=== PATIENT | male | born 1965 | race Caucasian/White ===

== ENCOUNTER 2018-09-26 23:31 | Inpatient (IN) | payer OTHER ==
[~2018-09-26] VITALS: Ht 188 cm; Wt 75.0 kg
[~2018-09-26 23:31] MED LIST: ACET160O41 GTB; DOCU50LI23 GTB; FAMO20TA18 GTB; FOLI-49 GTB; LOSA50TA14 GTB; MAGN2400 GTB; METO-429 GTB; MULT-762 GTB; MULT9LIQ2 PO; QUET50TA5 PO; SENN-120 GTB
--- NOTE | 2018-09-26 23:35 | ERD ---
ER Documentation Chief Complaint Chief Complaint Fever HPI The patient is a 53-year-old male, presenting to the ER because of fever. He is unable to provide any history, the history is obtained from SNF medical record, and the EMS. Past medical history: History of fracture of left tibia and fibula, dyslipidemia, BPH, schizophrenia, encephalopathy, GERD Past surgical history: G-tube, Rojas ROS All systems reviewed and are negative except as per history of present illness. Allergies Allergies: Coded Allergies: No Known Allergy (Unverified , 09/26/18) Physical Exam Vitals Vital Signs Date Temp Pulse Resp B/P (MAP) Pulse Ox O2 O2 Flow FiO2 Time Delivery Rate 09/27/18 98.6 78 18 93/61 (72) 100 Room Air 01:00 09/27/18 100.5 00:11 09/26/18 Nasal 2 23:50 Cannula 09/26/18 100.5 89 20 91/59 (70) 88 23:46 Physical Exam Const: No acute distress. Head: Atraumatic. Eyes: Normal Conjunctiva. ENT: Normal External Ears, Nose and Mouth. Neck: Full range of motion. No meningismus. Resp: Clear to auscultation bilaterally. Cardio: Regular rate and rhythm. Abd: Soft, non distended, normal bowel sounds, non tender.GT Skin: No petechiae or rashes. Back: No midline or flank tenderness. Ext: No cyanosis, or edema. Neur: Awake. Limited due to his condition Psych: Unable to perform due to his condition Result Diagram: 09/26/18 2350 09/26/18 2350 Results 24 hrs Laboratory Tests Test 09/26/18 00:00 09/26/18 23:46 09/26/18 23:50 09/27/18 00:11 Urine Color RED Urine Clarity TURBID Urine pH 6.0 Urine Specific 1.006 Early Urine Ketones NEGATIVE mg/dL Urine Nitrite NEGATIVE mg/dL Urine Bilirubin NEGATIVE mg/dL Urine NEGATIVE mg/dL Urobilinogen Urine Leukocyte 3+ Ankit/ul Esterase Urine Microscopic > 182 /HPF RBC Urine Microscopic > 182 /HPF WBC Urine Squamous FEW /HPF Epithelial Cells Urine Bacteria MODERATE /HPF Urine Mucus FEW /HPF Urine Hemoglobin 3+ mg/dL Urine Glucose NEGATIVE mg/dL Urine Total 2+ mg/dl Protein POC Venous 0.9 mmol/L Lactate White Blood Count 16.2 10^3/ul Red Blood Count 3.22 10^6/ul Hemoglobin 9.9 g/dl Hematocrit 29.9 % Mean Corpuscular 92.9 fl Volume Mean Corpuscular 30.7 pg Hemoglobin Mean Corpuscular 33.1 g/dl Hemoglobin Concen t Red Cell 15.6 % Distribution Width Platelet Count 207 10^3/UL Mean Platelet 10.3 fl Volume Immature 0.500 % Granulocytes % Neutrophils % % Segmented 59 % Neutrophils % (Manual) Band Neutrophils 24 % % (Manual) Lymphocytes % % Lymphocytes % 4 % (Manual) Reactive 1 % Lymphocytes % (Manual) Monocytes % % Monocytes % 12 % (Manual) Eosinophils % % Basophils % % Nucleated Red 0.0 /100WBC Blood Cells % Immature 0.080 10^3/ul Granulocytes # Neutrophils # 10^3/ul Neutrophils # 10.2 10^3/ul (Manual) Band Neutrophils 3.8 10^3/ul # Lymphocytes 0.6 10^3/ul (Manual) Lymphocytes # 10^3/ul Reactive 0.1 10^3/ul Lymphocytes # Monocytes # 10^3/ul Monocytes # 1.9 10^3/ul (Manual) Eosinophils # 10^3/ul Basophils # 10^3/ul Nucleated Red 10^3/ul Blood Cells # Platelet Estimate NORMAL Polychromasia 1+ Poikilocytosis 2+ Anisocytosis 1+ Macrocytosis 1+ Prothrombin Time 14.4 Sec Prothrombin Time 1.1 Ratio INR International 1.11 Normalized Ratio Activated 36.6 Sec Partial Thrombopl ast Time Sodium Level 126 mmol/L Potassium Level 5.0 mmol/L Chloride Level 90 mmol/L Carbon Dioxide 27 mmol/L Level Anion Gap 9 Blood Urea 38 mg/dl Nitrogen Creatinine 1.58 mg/dl Est Glomerular 46 mL/min Filtrat Rate mL/min Glucose Level 100 mg/dl Calcium Level 8.6 mg/dl Total Bilirubin 0.8 mg/dl Direct Bilirubin 0.00 mg/dl Indirect 0.8 mg/dl Bilirubin Aspartate Amino 24 IU/L Transf (AST/SGOT) Alanine 26 IU/L Aminotransferase (ALT/SGPT) Alkaline 108 IU/L Phosphatase Troponin I 0.017 ng/ml Total Protein 6.4 g/dl Albumin 3.1 g/dl Globulin 3.30 g/dl Albumin/Globulin 0.93 Ratio Bedside Urine pH 6.5 (LAB) Bedside Urine 3+ Protein (LAB) Bedside Urine Negative Glucose (UA) Bedside Urine Negative Ketones (LAB) Bedside Urine 3+ Blood Bedside Urine Positive Nitrite (LAB) Bedside Urine 3+ Leukocyte Esteras e (L Current Medications Medications Dose Sig/Tylor Start Time Status Last (Trade) Ordered Route PRN Stop Time Admin Dose Reason Admin Sodium 2,250 ml @ BOLUS X1 09/27/18 DC 09/27/18 Chloride 2,250 mls/hr ONCE IV 00:00 00:11 09/27/18 00:59 Piperacillin 100 ml @ ONCE ONCE 09/27/18 DC 09/27/18 Sod/ 200 mls/hr IVPB 00:00 00:11 Tazobactam 09/27/18 00:29 Sod 650 mg ONCE ONCE 09/27/18 DC 09/27/18 Acetaminophen PO 00:00 00:11 (Tylenol 09/27/18 00:01 Tab) Vancomycin 250 ml @ ONCE ONCE 09/27/18 09/27/18 HCl 125 mls/hr IVPB 00:30 01:00 09/27/18 02:29 Procedures/[place] [address] Radiology Main Line: [phone] DIAGNOSTIC IMAGING REPORT Patient: LORENA SIEGEL : 1965 Age: 53 Sex: M MR #: [id number] DOS: 09/26/18 2341 Ordering MD: MORTEZA IRENE MD Location: E/R Room/Bed: PROCEDURE: XR Chest. CLINICAL INDICATION: Sepsis. TECHNIQUE: Single frontal view. COMPARISON: None. FINDINGS: The lungs are clear. The heart size is normal. There is no pleural effusion. There is no pneumothorax. IMPRESSION: 1. Normal chest radiograph. RPTAT: QQ .Florencio Anders MD, Date Time Electronically viewed and signed by .Florencio Anders MD, on 09/27/2018 00:31 .R/ CC: MORTEZA IRENE MD [phone] EKG: Read by emergency physician Rate/Rhythm: Normal Sinus Rhythm 90 beats/min QRS, ST, T-waves: No ST elevation, no T inversion Impression: Normal EKG MEDICAL MAKING DECISION: The patient is a 53-year-old male, presenting with acute cystitis, acute dehydration, acute kidney injury, acute hypo-natremia. He was treated with normal saline 30 mm/kg IV for acute dehydration, Zosyn IV and vancomycin IV for acute cystitis. The Rojas catheter was replaced and a clean urine specimen was submitted The differential diagnoses considered include but are not limited to cholelithi asis, cholecystitis, choledocholithiasis, cholangitis, pancreatitis, hepatitis, gastritis, peptic ulcer disease, gastric ulcer, appendicitis, cystitis, diverticulitis, partial small bowel obstruction. Departure Diagnosis: Primary Impression: UTI (urinary tract infection) Additional Impressions: Hyponatremia Dehydration MANAS (acute kidney injury) Anemia Condition: Stable Comments I discussed the findings with the patient. I notified the patient with Dr. Estrada at 12:50 AM via [employer] , who was made aware of the lab, the treatment, the patient condition. The patient is admitted to Tel Disclaimer: Inadvertent spelling and grammatical errors are likely due to EHR/dictation software use and do not reflect on the overall quality of patient care. Also, please note that the electronic time recorded on this note does not necessarily reflect the actual time of the patient encounter. MORTEZA IRENE MD Sep 26, 2018 23:35
[2018-09-27] MEDS ORDERED: PIPER-TAZO 3.375 GM IV (PMX) 100 ML IVPB ONE
[2018-09-27] MEDS ORDERED: ACETAMINOPHEN 325 MG TAB PO ONE
[2018-09-27] MEDS ORDERED: SOD CHLORIDE 0.9% 2,250 ML IV ONE
[2018-09-27] MEDS ORDERED: VANCOMYCIN 1 GM (PMX) 250 ML IVPB ONE (00:30)
[2018-09-27 02:07] VITALS: Ht 188 cm; Wt 75.0 kg
[2018-09-27 02:15] VITALS: BP 110/60; PULSE 82; RESP 18
[2018-09-27] MEDS ORDERED: ACETAMINOPHEN 325 MG TAB PO PRN (03:00)
[2018-09-27] MEDS ORDERED: ONDANSETRON 4 MG INJ IV PRN (03:00)
[2018-09-27] MEDS: SOD CHLORIDE 0.9% 1,000 ML IV SCH ×2 (03:42→17:23)
[2018-09-27 04:00] VITALS: BP_SYST 103; BP_DIAS 62; BP_DIAS 92; PULSE 90; RESP 18
[2018-09-27 07:22] VITALS: BP 100/58; PULSE 94; RESP 20
[2018-09-27] MEDS: ENOXAPARIN 30 MG/0.3 ML SYG SC SCH (08:46)
[2018-09-27] MEDS ORDERED: CEFEPIME 1GM/50 ML (PMX) 50 ML IVPB SCH (09:00)
[2018-09-27] MEDS ORDERED: ACETAMINOPHEN 160 MG/5ML CUP GTB PRN (10:30)
--- NOTE | 2018-09-27 10:30 | HP ---
Date/Time of Note Date/Time of Note DATE: 09/27/18 TIME: 10:16 Assessment/Plan VTE Prophylaxis SCD contraindicated: other Pharmacological prophylaxis: other Pharm contraindication: other Lines/Catheters IV Catheter Type (from Nrsg): Peripheral IV Urinary Cath still in place: Yes Reason Cath still needed: urinary retention Assessment/Plan Assessment/Plan - Acute febrile illness 2/2 uti, bacteremia -- bacteremia and UTI due to Gram negative rods. - admit to tele - ID consult notified - Urinary Tract Infection- d/t Enterobacter cloacae. Curry catheter was changed at [facility] - Leukocytosis - Hyponatremia - Acute kidney injury due to ATN from UTI and Prerenal azotemia - IVF - nephro consult-Dr Rosa Zapata notified - Anemia- stable - H/o Chronic encephalopathy - H/o Schizophrenia - h/o GT placement but Pt takes pureed diet - aspiration precautions - h/o dysphagia, improved - h/o fracture of L hip h/o ORIF - h/o surgeries of LLE and L shoulder - H/o BPH with Urinary obstruction ,chronic indwelling curry catheter - Lovenox for DVT prophylaxis Patient seen in collaboration with Dr Shafer Result Diagram: 09/27/18 0544 09/27/18 0544 Results 24hrs Laboratory Tests Test 09/26/18 23:46 09/26/18 23:50 09/27/18 00:11 09/27/18 02:08 POC Venous Lactate 0.9 White Blood Count 16.2 H Red Blood Count 3.22 L Hemoglobin 9.9 L Hematocrit 29.9 L Mean Corpuscular 92.9 Volume Mean Corpuscular 30.7 Hemoglobin Mean Corpuscular 33.1 Hemoglobin Concent Red Cell 15.6 H Distribution Width Platelet Count 207 Mean Platelet Volume 10.3 Immature 0.500 H Granulocytes % Neutrophils % Segmented 59 Neutrophils % (Manual) Band Neutrophils % 24 H (Manual) Lymphocytes % Lymphocytes % 4 L (Manual) Reactive Lymphocytes 1 H % (Manual) Monocytes % Monocytes % (Manual) 12 H Eosinophils % Basophils % Nucleated Red Blood 0.0 Cells % Immature 0.080 H Granulocytes # Neutrophils # Neutrophils # 10.2 H (Manual) Band Neutrophils # 3.8 H Lymphocytes (Manual) 0.6 L Lymphocytes # Reactive Lymphocytes 0.1 H # Monocytes # Monocytes # (Manual) 1.9 H Eosinophils # Basophils # Nucleated Red Blood Cells # Platelet Estimate NORMAL Polychromasia 1+ Poikilocytosis 2+ Anisocytosis 1+ Macrocytosis 1+ Prothrombin Time 14.4 Prothrombin Time 1.1 Ratio INR International 1.11 Normalized Ratio Activated 36.6 H Partial Thromboplast Time Sodium Level 126 L Potassium Level 5.0 Chloride Level 90 L Carbon Dioxide Level 27 Anion Gap 9 Blood Urea Nitrogen 38 H Creatinine 1.58 H Est Glomerular 46 L Filtrat Rate mL/min Glucose Level 100 Calcium Level 8.6 Total Bilirubin 0.8 Direct Bilirubin 0.00 Indirect Bilirubin 0.8 Aspartate Amino 24 Transf (AST/SGOT) Alanine 26 Aminotransferase (AL T/SGPT) Alkaline Phosphatase 108 Troponin I 0.017 Total Protein 6.4 Albumin 3.1 L Globulin 3.30 H Albumin/Globulin 0.93 Ratio Bedside Urine pH 6.5 (LAB) Bedside Urine 3+ H Protein (LAB) Bedside Urine Negative Glucose (UA) Bedside Urine Negative Ketones (LAB) Bedside Urine Blood 3+ H Bedside Urine Positive H Nitrite (LAB) Bedside Urine 3+ H Leukocyte Esterase (L Lactic Acid Level 0.8 Test 09/27/18 02:55 09/27/18 05:44 Urine Osmolality 117 L Urine Random Sodium < 13 L White Blood Count 16.0 H Red Blood Count 2.93 L Hemoglobin 9.0 L Hematocrit 27.2 L Mean Corpuscular 92.8 Volume Mean Corpuscular 30.7 Hemoglobin Mean Corpuscular 33.1 Hemoglobin Concent Red Cell 15.8 H Distribution Width Platelet Count 187 Mean Platelet Volume 10.4 Immature 0.600 H Granulocytes % Neutrophils % Segmented 56 Neutrophils % (Manual) Band Neutrophils % 38 H (Manual) Lymphocytes % 2.2 L Lymphocytes % 2 L (Manual) Monocytes % 3.6 Monocytes % (Manual) 4 Eosinophils % Basophils % 0.1 Nucleated Red Blood 0.0 Cells % Immature 0.100 H Granulocytes # Neutrophils # Neutrophils # 9.9 H (Manual) Band Neutrophils # 6.0 H Lymphocytes (Manual) 0.3 L Lymphocytes # 0.4 L Monocytes # 0.6 Monocytes # (Manual) 0.6 Eosinophils # Basophils # 0.0 Nucleated Red Blood 0.0 Cells # Platelet Estimate NORMAL Giant Platelets 3 H Hypochromasia 1+ Poikilocytosis 2+ Sodium Level 130 L Potassium Level 4.6 Chloride Level 98 Carbon Dioxide Level 25 Anion Gap 7 Blood Urea Nitrogen 37 H Creatinine 1.54 H Est Glomerular 47 L Filtrat Rate mL/min Glucose Level 89 Osmolality 273 L Lactic Acid Level 1.1 Calcium Level 8.2 L HPI/ROS Admit Date/Time Admit Date/Time Sep 27, 2018 at 01:07 Hx of Present Illness HPI The patient is a 53-year-old male; a SNF resident is admitted 2/2 fever. He is unable to provide any history, the history is obtained from SNF medical record. Patient seems comfortable in bed. Patient is alert, awake.responsive. No reported shortness of breath, chest pain, palpitations, headache, abdominal pain/Nausea/vomitting. Patient is admitted under Dr Shafer for further treatment/evaluation Past medical historyPast medical history: History of fracture of left tibia and fibula, dyslipidemia, BPH schizophrenia, encephalopathy, GERD Past surgical history: G-tube, Curry. ORIF Left hip Family/social history- No pertinent family history; SNF resident ROS All systems reviewed and are negative except as per history of present illness. Allergies Allergies: Coded Allergies: No Known Allergy (Unverified , 09/26/18) ROS Eyes: no complaints ENT: no complaints Respiratory: no complaints Cardiovascular: no complaints PMH/Family/Social Past Medical History Medications Current Medications Sodium Chloride 1,000 ml @ 70 mls/hr [id number] IV Last administered on 09/27/18at 03:42; Admin Dose 70 MLS/HR; Start 09/27/18 at 03:00 Cefepime HCl 50 ml @ 100 mls/hr Q12 IVPB Last administered on 09/27/18at 08:44; Admin Dose 100 MLS/HR; Start 09/27/18 at 09:00 Acetaminophen (Tylenol Tab) 650 mg Q4H PRN PO MILD PAIN(1-3)OR ELEVATED TEMP; Start 09/27/18 at 03:00 Enoxaparin Sodium (Lovenox) 30 mg DAILY SC Last administered on 09/27/18at 08:46; Admin Dose 30 MG; Start 09/27/18 at 09:00 Ondansetron HCl (Zofran Inj) 4 mg Q6H PRN IV NAUSEA AND/OR VOMITING; Start 09/27/18 at 03:00 Coded Allergies: No Known Allergy (Unverified , 7/18/19) Family History Significant Family History: no pertinent family hx Social History Smoking Status: Unknown if ever smoked Exam/Review of Systems Vital Signs Vitals Vital Signs Date Temp Pulse Resp B/P (MAP) Pulse Ox O2 O2 Flow FiO2 Time Delivery Rate 09/27/18 99.1 94 20 100/58 97 07:22 (72) 09/27/18 Nasal 3.0 02:30 Cannula Intake and Output 09/26/18 09/26/18 09/27/18 1515:00 23:00 07:00 OutputOutput Total 900 ml BalanceBalance -900 ml Exam Constitutional: alert, well developed Psych: nl mood/affect Head: normocephalic Eyes: nl lids, nl sclera ENMT: nl external ears & nose Neck: non-tender Cardiovascular: nl pulses, other (S1S2) Gastrointestinal: soft, non-tender, other (GT INTACT) Musculoskeletal: muscle weakness Extremities: normal pulses Neurological: confused Lymph: nontender CORBIN GAYTAN Sep 27, 2018 10:26
[2018-09-27 11:18] VITALS: BP 114/67; PULSE 101; RESP 20
[2018-09-27] MEDS ORDERED: LOSARTAN 50 MG TAB GTB SCH (12:00)
[2018-09-27] MEDS: QUETIAPINE 25 MG TAB GTB SCH ×2 (12:41→20:07)
[2018-09-27] MEDS: METOPROLOL 50 MG TAB GTB SCH ×2 (12:42→20:07)
[2018-09-27 15:17] VITALS: BP 106/63; PULSE 90; RESP 20
--- NOTE | 2018-09-27 16:47 | CONS ---
Assessment/Plan Assessment/Plan Assessment/Plan (Daily) 1. acute kidney injury due to ATN from UTI and Prerenal azotemia 2. SIRS due to UTI and bacteremia 3. Bacteremia with Blood Cx growing Gram negative rods 4. H/o BPH with Urinary obstruction ,c hronic indwelling curry catheter 5. H/o Chronic encephalopathy 6. H/o SChizophrenia 7. H/o G tube placement 8. H/o Fracture of left hip s/p ORIF Plan: Seen in tele floor pt has MANAS due to ATN and prerenal azotemia Cr remains elevated 1.54- Stop Losartan due to MANAS Continue MTP for BP control, will use IV hydralazine for BP control Gold bx cefepie for gram negative bacteremia,Renally dose all abx and monitor electrolytes Thanks for consultation I will continue to follow up Consultation Date/Type/Reason Admit Date/Time Sep 27, 2018 at 01:07 Date of Consultation: Sep 27, 2018 Type of Consult NEPHROLOGY Reason for Consultation Hyponatremia, acute kidney injury Requesting Provider: JOHNIE BRADFORD MD Date/Time of Note DATE: 09/27/18 TIME: 16:46 Hx of Present Illness 53 yo male with h/o chronic encephalopathy, schizophrenia, BPH wiht Urinary obstruction requiring chronic urinary catheter. Pt is verbal but cannot have a normal conversation. Pt was transferred from SNF due to fever on 09/26/18. He has BPH with Urinary obstruction and has a chronic indwelling curry catheter. He has a G tube but eats pureed food by mouth. he gets admitted for SIRS on admission,and found to have Bacteremia and UTI, his Blood Cx grew gram negative rods. Na 126, BUN/Cr 38/1.58 on admission, Renal has been consulted for acute kidney injury, Hyponatremia. Subjective hx not possible: pt non-verbal Past Medical History Medical History: other (chronic encephalopathy, schizophrenia, BPH wiht Urinary obstruction requiring chronic urinary catheter) Home Meds Reported Medications Quetiapine Fumarate* (Seroquel* XR) 50 Mg Tab.sr.24h, 50 ML PO DAILY, #30 TAB 09/27/18 Sennosides* (Senna Lax*) 8.6 Mg Tablet, 1 TAB GTB QHS, TAB 09/27/18 Multivitamin/Minerals* (Multivitamin w/Min* Liq) 9 Mg/15 Ml Liquid, 10 ML PO DAILY, ML 09/27/18 Multivitamin (MULTI-VITAMIN DAILY) 1 Each Tablet, 1 TAB GTB DAILY, TAB 09/27/18 Magnesium Hydroxide (Milk of Magnesia) 2,400 Mg/10 Ml Oral.susp, 15 ML GTB Q72H PRN for CONSTIPATION 09/27/18 Metoprolol Tartrate* (Lopressor*) 50 Mg Tab, 50 MG GTB BID for HTN, #60 TAB 09/27/18 Losartan Potassium* (Losartan Potassium*) 50 Mg Tablet, 50 MG GTB DAILY for HTN, TAB 09/27/18 Folic Acid* (Folic Acid*) 1 Mg Tablet, 1 MG GTB DAILY for ANEMIA, TAB 09/27/18 Famotidine* (Famotidine*) 20 Mg Tablet, 20 MG GTB BID for GERD, #60 TAB 09/27/18 Docusate Sodium* (Docusate Sodium* Liq) 50 Mg/5 Ml Liquid, 50 MG GTB DAILY, ML 09/27/18 Acetaminophen* (Acetaminophen* Susp) 160 Mg/5 Ml Oral.susp, 160 MG GTB Q4H PRN for PAIN OR TEMP ABOVE 38C, ML 09/27/18 Medications Current Medications Sodium Chloride 1,000 ml @ 70 mls/hr [id number] IV Last administered on 09/27/18at 03:42; Admin Dose 70 MLS/HR; Start 09/27/18 at 03:00 Cefepime HCl 50 ml @ 100 mls/hr Q12 IVPB Last administered on 09/27/18at 08:44; Admin Dose 100 MLS/HR; Start 09/27/18 at 09:00 Enoxaparin Sodium (Lovenox) 30 mg DAILY SC Last administered on 09/27/18at 08:46; Admin Dose 30 MG; Start 09/27/18 at 09:00 Ondansetron HCl (Zofran Inj) 4 mg Q6H PRN IV NAUSEA AND/OR VOMITING; Start 09/27/18 at 03:00 Acetaminophen (Tylenol Liquid (Ped)) 160 mg Q4H PRN GTB MILD PAIN(1-3) OR TEMP>38C; Start 09/27/18 at 10:30 Docusate Sodium (Colace Liquid Cup) 50 mg DAILY GTB ; Start 09/28/18 at 09:00 Famotidine (Pepcid) 20 mg BID GTB ; Start 09/27/18 at 21:00 Folic Acid (Folic Acid) 1 mg DAILY GTB ; Start 09/28/18 at 09:00 Losartan Potassium (Cozaar) 50 mg DAILY GTB Last administered on 09/27/18at 12:42; Admin Dose 50 MG; Start 09/27/18 at 12:00 Metoprolol Tartrate (Lopressor) 50 mg BID GTB Last administered on 09/27/18at 12:42; Admin Dose 50 MG; Start 09/27/18 at 12:00 Senna (Senokot) 1 tab QHS GTB ; Start 09/27/18 at 21:00 Multivitamins/ Minerals (Theragran-M) 1 tab DAILY GTB ; Start 09/28/18 at 09:00 Quetiapine Fumarate (Seroquel) 25 mg BID GTB Last administered on 09/27/18at 12:41; Admin Dose 25 MG; Start 09/27/18 at 12:00 Allergies: Coded Allergies: No Known Allergy (Unverified , 09/26/18) Past Surgical History Past Surgical Hx: other (G tube in place ) Family History Significant Family History: no pertinent family hx Social History Alcohol Use: none Smoking Status: Unknown if ever smoked Drug Use: none Exam/Review of Systems Exam Vitals Vital Signs Date Temp Pulse Resp B/P (MAP) Pulse Ox O2 O2 Flow FiO2 Time Delivery Rate 09/27/18 99.7 90 20 106/63 99 Room Air 15:17 (77) 09/27/18 2.0 14:50 Intake and Output 09/26/18 09/26/18 09/27/18 1515:00 23:00 07:00 OutputOutput Total 900 ml BalanceBalance -900 ml Exam Constitutional: confused talking non sense) Psych: confusion Head: normocephalic, atraumatic Respiratory: clear to auscultation, normal air movement Cardiovascular: regular rate and rhythm, nl pulses; Gastrointestinal: soft, non-tender, other (GT); No distended, No tender Genitourinary - Male: other (FC) Musculoskeletal: other (L hip and LLE have well healed surgical scars) Extremities: No edema Neurological: confused,non focal Results Result Diagram: 09/27/1844 09/27/18 0544 Results 24hrs Laboratory Tests Test 09/26/18 23:46 09/26/18 23:50 09/27/18 00:11 09/27/18 02:08 POC Venous Lactate 0.9 White Blood Count 16.2 H Red Blood Count 3.22 L Hemoglobin 9.9 L Hematocrit 29.9 L Mean Corpuscular 92.9 Volume Mean Corpuscular 30.7 Hemoglobin Mean Corpuscular 33.1 Hemoglobin Concent Red Cell 15.6 H Distribution Width Platelet Count 207 Mean Platelet Volume 10.3 Immature 0.500 H Granulocytes % Neutrophils % Segmented 59 Neutrophils % (Manual) Band Neutrophils % 24 H (Manual) Lymphocytes % Lymphocytes % 4 L (Manual) Reactive Lymphocytes 1 H % (Manual) Monocytes % Monocytes % (Manual) 12 H Eosinophils % Basophils % Nucleated Red Blood 0.0 Cells % Immature 0.080 H Granulocytes # Neutrophils # Neutrophils # 10.2 H (Manual) Band Neutrophils # 3.8 H Lymphocytes (Manual) 0.6 L Lymphocytes # Reactive Lymphocytes 0.1 H # Monocytes # Monocytes # (Manual) 1.9 H Eosinophils # Basophils # Nucleated Red Blood Cells # Platelet Estimate NORMAL Polychromasia 1+ Poikilocytosis 2+ Anisocytosis 1+ Macrocytosis 1+ Prothrombin Time 14.4 Prothrombin Time 1.1 Ratio INR International 1.11 Normalized Ratio Activated 36.6 H Partial Thromboplast Time Sodium Level 126 L Potassium Level 5.0 Chloride Level 90 L Carbon Dioxide Level 27 Anion Gap 9 Blood Urea Nitrogen 38 H Creatinine 1.58 H Est Glomerular 46 L Filtrat Rate mL/min Glucose Level 100 Calcium Level 8.6 Total Bilirubin 0.8 Direct Bilirubin 0.00 Indirect Bilirubin 0.8 Aspartate Amino 24 Transf (AST/SGOT) Alanine 26 Aminotransferase (AL T/SGPT) Alkaline Phosphatase 108 Troponin I 0.017 Total Protein 6.4 Albumin 3.1 L Globulin 3.30 H Albumin/Globulin 0.93 Ratio Bedside Urine pH 6.5 (LAB) Bedside Urine 3+ H Protein (LAB) Bedside Urine Negative Glucose (UA) Bedside Urine Negative Ketones (LAB) Bedside Urine Blood 3+ H Bedside Urine Positive H Nitrite (LAB) Bedside Urine 3+ H Leukocyte Esterase (L Lactic Acid Level 0.8 Test 09/27/18 02:55 09/27/18 05:44 Urine Osmolality 117 L Urine Random Sodium < 13 L White Blood Count 16.0 H Red Blood Count 2.93 L Hemoglobin 9.0 L Hematocrit 27.2 L Mean Corpuscular 92.8 Volume Mean Corpuscular 30.7 Hemoglobin Mean Corpuscular 33.1 Hemoglobin Concent Red Cell 15.8 H Distribution Width Platelet Count 187 Mean Platelet Volume 10.4 Immature 0.600 H Granulocytes % Neutrophils % Segmented 56 Neutrophils % (Manual) Band Neutrophils % 38 H (Manual) Lymphocytes % 2.2 L Lymphocytes % 2 L (Manual) Monocytes % 3.6 Monocytes % (Manual) 4 Eosinophils % Basophils % 0.1 Nucleated Red Blood 0.0 Cells % Immature 0.100 H Granulocytes # Neutrophils # Neutrophils # 9.9 H (Manual) Band Neutrophils # 6.0 H Lymphocytes (Manual) 0.3 L Lymphocytes # 0.4 L Monocytes # 0.6 Monocytes # (Manual) 0.6 Eosinophils # Basophils # 0.0 Nucleated Red Blood 0.0 Cells # Platelet Estimate NORMAL Giant Platelets 3 H Hypochromasia 1+ Poikilocytosis 2+ Sodium Level 130 L Potassium Level 4.6 Chloride Level 98 Carbon Dioxide Level 25 Anion Gap 7 Blood Urea Nitrogen 37 H Creatinine 1.54 H Est Glomerular 47 L Filtrat Rate mL/min Glucose Level 89 Osmolality 273 L Lactic Acid Level 1.1 Calcium Level 8.2 L Medications Medication Current Medications Sodium Chloride 1,000 ml @ 70 mls/hr [id number] IV Last administered on 09/27/18at 03:42; Admin Dose 70 MLS/HR; Start 09/27/18 at 03:00 Cefepime HCl 50 ml @ 100 mls/hr Q12 IVPB Last administered on 09/27/18at 08:44; Admin Dose 100 MLS/HR; Start 09/27/18 at 09:00 Enoxaparin Sodium (Lovenox) 30 mg DAILY SC Last administered on 09/27/18at 08:4 6; Admin Dose 30 MG; Start 09/27/18 at 09:00 Ondansetron HCl (Zofran Inj) 4 mg Q6H PRN IV NAUSEA AND/OR VOMITING; Start 09/27/18 at 03:00 Acetaminophen (Tylenol Liquid (Ped)) 160 mg Q4H PRN GTB MILD PAIN(1-3) OR TEMP>38C; Start 09/27/18 at 10:30 Docusate Sodium (Colace Liquid Cup) 50 mg DAILY GTB ; Start 09/28/18 at 09:00 Famotidine (Pepcid) 20 mg BID GTB ; Start 09/27/18 at 21:00 Folic Acid (Folic Acid) 1 mg DAILY GTB ; Start 09/28/18 at 09:00 Losartan Potassium (Cozaar) 50 mg DAILY GTB Last administered on 09/27/18at 12:42; Admin Dose 50 MG; Start 09/27/18 at 12:00 Metoprolol Tartrate (Lopressor) 50 mg BID GTB Last administered on 09/27/18at 12:42; Admin Dose 50 MG; Start 09/27/18 at 12:00 Senna (Senokot) 1 tab QHS GTB ; Start 09/27/18 at 21:00 Multivitamins/ Minerals (Theragran-M) 1 tab DAILY GTB ; Start 09/28/18 at 09:00 Quetiapine Fumarate (Seroquel) 25 mg BID GTB Last administered on 09/27/18at 12:41; Admin Dose 25 MG; Start 09/27/18 at 12:00 MARCOS MOODY MD Sep 27, 2018 16:47
--- NOTE | 2018-09-27 18:22 | CONS ---
Assessment/Plan Assessment/Plan Hospital Course (Demo Recall) assessment/impression - fever due to bacteremia and UTI - bacteremia and UTI due to Gram negative rods. Curry catheter was changed at [facility] - BPH, has an indwelling curry at [facility] - chronic encephalopathy, talks non-sense only - h/o dysphagia, improved - h/o GT placement but Pt takes pureed diet - h/o fracture of L hip h/o ORIF - h/o surgeries of LLE and L shoulder recommendations - await the species and sensitivity of Gram negative rods in the blood and urine cultures - repeat blood cultures x2 now - increase the dose of cefepime to the bacteremia-dose (09/26/2018-) - nystatin to the tinea of the groin bid ordered - management d/w Pt's KAROL Desai Consultation Date/Type/Reason Admit Date/Time Sep 27, 2018 at 01:07 Date of Consultation: Sep 27, 2018 Type of Consult ID Reason for Consultation bacteremia and UTI Requesting Provider: CORBIN GAYTAN Date/Time of Note DATE: 09/27/18 TIME: 18:16 Hx of Present Illness This is a 53 yo male with h/o chronic encephalopathy, schizophrenia, with chronic urinary catheter. Pt is verbal but cannot have a normal conversation. Pt was transferred from [facility] due to fever on 09/26/18. He has BPH and a chronic indwelling curry catheter. He has a G tube but eats pureed food by mouth. Upon arrival at ER, he had temp 100.5F, and WBC level 16.2. Pt was given pip/tazo and vancomycin initially, and is at present taking cefepime. Today Pt's blood cultures and urine culture started to grow Gram negative devika. [employer] Leonel requested ID consultation on this Pt Subjective hx not possible: other (verbal but cannot talk normally) Past Medical History Medical History: other (chronic encephalopathy, Fx of L hip) Home Meds Reported Medications Quetiapine Fumarate* (Seroquel* XR) 50 Mg Tab.sr.24h, 50 ML PO DAILY, #30 TAB 09/27/18 Sennosides* (Senna Lax*) 8.6 Mg Tablet, 1 TAB GTB QHS, TAB 09/27/18 Multivitamin/Minerals* (Multivitamin w/Min* Liq) 9 Mg/15 Ml Liquid, 10 ML PO DAILY, ML 09/27/18 Multivitamin (MULTI-VITAMIN DAILY) 1 Each Tablet, 1 TAB GTB DAILY, TAB 09/27/18 Magnesium Hydroxide (Milk of Magnesia) 2,400 Mg/10 Ml Oral.susp, 15 ML GTB Q72H PRN for CONSTIPATION 09/27/18 Metoprolol Tartrate* (Lopressor*) 50 Mg Tab, 50 MG GTB BID for HTN, #60 TAB 09/27/18 Losartan Potassium* (Losartan Potassium*) 50 Mg Tablet, 50 MG GTB DAILY for HTN, TAB 09/27/18 Folic Acid* (Folic Acid*) 1 Mg Tablet, 1 MG GTB DAILY for ANEMIA, TAB 09/27/18 Famotidine* (Famotidine*) 20 Mg Tablet, 20 MG GTB BID for GERD, #60 TAB 09/27/18 Docusate Sodium* (Docusate Sodium* Liq) 50 Mg/5 Ml Liquid, 50 MG GTB DAILY, ML 09/27/18 Acetaminophen* (Acetaminophen* Susp) 160 Mg/5 Ml Oral.susp, 160 MG GTB Q4H PRN for PAIN OR TEMP ABOVE 38C, ML 09/27/18 Medications Current Medications Sodium Chloride 1,000 ml @ 70 mls/hr [id number] IV Last administered on 09/27/18at 17:23; Admin Dose 70 MLS/HR; Start 09/27/18 at 03:00 Enoxaparin Sodium (Lovenox) 30 mg DAILY SC Last administered on 09/27/18at 08:46; Admin Dose 30 MG; Start 09/27/18 at 09:00 Ondansetron HCl (Zofran Inj) 4 mg Q6H PRN IV NAUSEA AND/OR VOMITING; Start 09/27/18 at 03:00 Acetaminophen (Tylenol Liquid (Ped)) 160 mg Q4H PRN GTB MILD PAIN(1-3) OR TEMP>38C; Start 09/27/18 at 10:30 Docusate Sodium (Colace Liquid Cup) 50 mg DAILY GTB ; Start 09/28/18 at 09:00 Famotidine (Pepcid) 20 mg BID GTB ; Start 09/27/18 at 21:00 Folic Acid (Folic Acid) 1 mg DAILY GTB ; Start 09/28/18 at 09:00 Losartan Potassium (Cozaar) 50 mg DAILY GTB Last administered on 09/27/18at 12:42; Admin Dose 50 MG; Start 09/27/18 at 12:00 Metoprolol Tartrate (Lopressor) 50 mg BID GTB Last administered on 09/27/18at 12:42; Admin Dose 50 MG; Start 09/27/18 at 12:00 Senna (Senokot) 1 tab QHS GTB ; Start 09/27/18 at 21:00 Multivitamins/ Minerals (Theragran-M) 1 tab DAILY GTB ; Start 09/28/18 at 09:00 Quetiapine Fumarate (Seroquel) 25 mg BID GTB Last administered on 09/27/18at 12:41; Admin Dose 25 MG; Start 09/27/18 at 12:00 Cefepime HCl 50 ml @ 100 mls/hr Q12 IVPB ; Start 09/27/18 at 21:00; Status UNV Allergies: Coded Allergies: No Known Allergy (Unverified , 09/26/18) Past Surgical History Past Surgical Hx: other (ORIF L hip, additional surgeries to LLE, L shoulder) Social History Smoking Status: Unknown if ever smoked Exam/Review of Systems Exam Vitals Vital Signs Date Temp Pulse Resp B/P (MAP) Pulse Ox O2 O2 Flow FiO2 Time Delivery Rate 09/27/18 99.7 90 20 106/63 99 Room Air 15:17 (77) 09/27/18 2.0 14:50 Intake and Output 09/26/18 09/26/18 09/27/18 1414:59 22:59 06:59 OutputOutput Total 900 ml BalanceBalance -900 ml Constitutional: other (talking non sense) Psych: confusion Head: normocephalic, atraumatic Eyes: nl conjunctiva, nl lids, nl sclera ENMT: nl external ears & nose, nl nasal mucosa & septum, mucosa pink and moist Neck: non-tender Respiratory: clear to auscultation, normal air movement Cardiovascular: regular rate and rhythm, nl pulses; No edema Gastrointestinal: soft, non-tender, other (GT); No distended, No tender Genitourinary - Male: other (FC) Musculoskeletal: other (L hip and LLE have well healed surgical scars) Extremities: No edema Neurological: confused Skin: rash or lesions (tinea of the groin) Results Result Diagram: 09/27/18 0544 09/27/18 0544 Results 24hrs Laboratory Tests Test 09/26/18 23:46 09/26/18 23:50 09/27/18 00:11 09/27/18 02:08 POC Venous Lactate 0.9 White Blood Count 16.2 H Red Blood Count 3.22 L Hemoglobin 9.9 L Hematocrit 29.9 L Mean Corpuscular 92.9 Volume Mean Corpuscular 30.7 Hemoglobin Mean Corpuscular 33.1 Hemoglobin Concent Red Cell 15.6 H Distribution Width Platelet Count 207 Mean Platelet Volume 10.3 Immature 0.500 H Granulocytes % Neutrophils % Segmented 59 Neutrophils % (Manual) Band Neutrophils % 24 H (Manual) Lymphocytes % Lymphocytes % 4 L (Manual) Reactive Lymphocytes 1 H % (Manual) Monocytes % Monocytes % (Manual) 12 H Eosinophils % Basophils % Nucleated Red Blood 0.0 Cells % Immature 0.080 H Granulocytes # Neutrophils # Neutrophils # 10.2 H (Manual) Band Neutrophils # 3.8 H Lymphocytes (Manual) 0.6 L Lymphocytes # Reactive Lymphocytes 0.1 H # Monocytes # Monocytes # (Manual) 1.9 H Eosinophils # Basophils # Nucleated Red Blood Cells # Platelet Estimate NORMAL Polychromasia 1+ Poikilocytosis 2+ Anisocytosis 1+ Macrocytosis 1+ Prothrombin Time 14.4 Prothrombin Time 1.1 Ratio INR International 1.11 Normalized Ratio Activated 36.6 H Partial Thromboplast Time Sodium Level 126 L Potassium Level 5.0 Chloride Level 90 L Carbon Dioxide Level 27 Anion Gap 9 Blood Urea Nitrogen 38 H Creatinine 1.58 H Est Glomerular 46 L Filtrat Rate mL/min Glucose Level 100 Calcium Level 8.6 Total Bilirubin 0.8 Direct Bilirubin 0.00 Indirect Bilirubin 0.8 Aspartate Amino 24 Transf (AST/SGOT) Alanine 26 Aminotransferase (AL T/SGPT) Alkaline Phosphatase 108 Troponin I 0.017 Total Protein 6.4 Albumin 3.1 L Globulin 3.30 H Albumin/Globulin 0.93 Ratio Bedside Urine pH 6.5 (LAB) Bedside Urine 3+ H Protein (LAB) Bedside Urine Negative Glucose (UA) Bedside Urine Negative Ketones (LAB) Bedside Urine Blood 3+ H Bedside Urine Positive H Nitrite (LAB) Bedside Urine 3+ H Leukocyte Esterase (L Lactic Acid Level 0.8 Test 09/27/18 02:55 09/27/18 05:44 Urine Osmolality 117 L Urine Random Sodium < 13 L White Blood Count 16.0 H Red Blood Count 2.93 L Hemoglobin 9.0 L Hematocrit 27.2 L Mean Corpuscular 92.8 Volume Mean Corpuscular 30.7 Hemoglobin Mean Corpuscular 33.1 Hemoglobin Concent Red Cell 15.8 H Distribution Width Platelet Count 187 Mean Platelet Volume 10.4 Immature 0.600 H Granulocytes % Neutrophils % Segmented 56 Neutrophils % (Manual) Band Neutrophils % 38 H (Manual) Lymphocytes % 2.2 L Lymphocytes % 2 L (Manual) Monocytes % 3.6 Monocytes % (Manual) 4 Eosinophils % Basophils % 0.1 Nucleated Red Blood 0.0 Cells % Immature 0.100 H Granulocytes # Neutrophils # Neutrophils # 9.9 H (Manual) Band Neutrophils # 6.0 H Lymphocytes (Manual) 0.3 L Lymphocytes # 0.4 L Monocytes # 0.6 Monocytes # (Manual) 0.6 Eosinophils # Basophils # 0.0 Nucleated Red Blood 0.0 Cells # Platelet Estimate NORMAL Giant Platelets 3 H Hypochromasia 1+ Poikilocytosis 2+ Sodium Level 130 L Potassium Level 4.6 Chloride Level 98 Carbon Dioxide Level 25 Anion Gap 7 Blood Urea Nitrogen 37 H Creatinine 1.54 H Est Glomerular 47 L Filtrat Rate mL/min Glucose Level 89 Osmolality 273 L Lactic Acid Level 1.1 Calcium Level 8.2 L Medications Medication Current Medications Sodium Chloride 1,000 ml @ 70 mls/hr [id number] IV Last administered on 09/27/18at 17:23; Admin Dose 70 MLS/HR; Start 09/27/18 at 03:00 Enoxaparin Sodium (Lovenox) 30 mg DAILY SC Last administered on 09/27/18at 08:46; Admin Dose 30 MG; Start 09/27/18 at 09:00 Ondansetron HCl (Zofran Inj) 4 mg Q6H PRN IV NAUSEA AND/OR VOMITING; Start 09/27/18 at 03:00 Acetaminophen (Tylenol Liquid (Ped)) 160 mg Q4H PRN GTB MILD PAIN(1-3) OR TEMP>38C; Start 09/27/18 at 10:30 Docusate Sodium (Colace Liquid Cup) 50 mg DAILY GTB ; Start 09/28/18 at 09:00 Famotidine (Pepcid) 20 mg BID GTB ; Start 09/27/18 at 21:00 Folic Acid (Folic Acid) 1 mg DAILY GTB ; Start 09/28/18 at 09:00 Losartan Potassium (Cozaar) 50 mg DAILY GTB Last administered on 09/27/18at 12:42; Admin Dose 50 MG; Start 09/27/18 at 12:00 Metoprolol Tartrate (Lopressor) 50 mg BID GTB Last administered on 09/27/18at 12:42; Admin Dose 50 MG; Start 09/27/18 at 12:00 Senna (Senokot) 1 tab QHS GTB ; Start 09/27/18 at 21:00 Multivitamins/ Minerals (Theragran-M) 1 tab DAILY GTB ; Start 09/28/18 at 09:00 Quetiapine Fumarate (Seroquel) 25 mg BID GTB Last administered on 09/27/18at 12:41; Admin Dose 25 MG; Start 09/27/18 at 12:00 Cefepime HCl 50 ml @ 100 mls/hr Q12 IVPB ; Start 09/27/18 at 21:00; Status DEWAYNE ORNELAS M.D. Sep 27, 2018 18:22
[2018-09-27 19:20] VITALS: BP 123/72; PULSE 99; RESP 20
[2018-09-27] MEDS: FAMOTIDINE 20 MG TAB GTB SCH (20:07)
[2018-09-27] MEDS: SENNA TAB GTB SCH (20:07)
[2018-09-27] MEDS: NYSTATIN 30 GM POWDER BTL TOP SCH (20:08)
[2018-09-27] MEDS: CEFEPIME 2GM/50 ML (PMX) 50 ML IVPB SCH (20:08)
[2018-09-28] VITALS (7 sets, daily range): BP systolic 114–169; BP diastolic 7–90; PULSE 68–103; RESP 18–20
[2018-09-28] MEDS ORDERED: ACETAMINOPHEN 325 MG TAB PO PRN (05:00)
[2018-09-28] MEDS: SOD CHLORIDE 0.9% 1,000 ML IV SCH (06:53)
[2018-09-28] MEDS: FAMOTIDINE 20 MG TAB GTB SCH ×2 (08:19→20:38)
[2018-09-28] MEDS: QUETIAPINE 25 MG TAB GTB SCH ×2 (08:19→20:38)
[2018-09-28] MEDS: CEFEPIME 2GM/50 ML (PMX) 50 ML IVPB SCH ×2 (08:20→20:38)
[2018-09-28] MEDS: ENOXAPARIN 30 MG/0.3 ML SYG SC SCH (08:25)
[2018-09-28] MEDS: NYSTATIN 30 GM POWDER BTL TOP SCH ×2 (08:26→20:39)
[2018-09-28] MEDS: DOCUSATE SODIUM 10 MG/ML (10ML CUP) GTB SCH (08:26)
[2018-09-28] MEDS: MULTIVITAMINS/MINERALS TAB GTB SCH (08:26)
[2018-09-28] MEDS: FOLIC ACID 1 MG TAB GTB SCH (08:27)
[2018-09-28] MEDS: METOPROLOL 50 MG TAB GTB SCH ×2 (08:28→20:38)
--- NOTE | 2018-09-28 08:45 | CONS ---
Assessment/Plan Assessment/Plan Assessment/Plan (Daily) 1. acute kidney injury due to ATN from UTI and Prerenal azotemia 2. SIRS due to UTI and bacteremia 3. Bacteremia with Blood Cx growing Gram negative rods 4. H/o BPH with Urinary obstruction ,c hronic indwelling curry catheter 5. H/o Chronic encephalopathy 6. H/o SChizophrenia 7. H/o G tube placement 8. H/o Fracture of left hip s/p ORIF Plan: BUN/Cr 38/1.93, other electrolytes stable , Losartan has been stopped due to MANAS. Continue MTP 50mg PO BID for BP control, will use IV hydralazine for BP control Gold bx cefepie for Enterobacter bacteremia ,Renally dose all abx and monitor electrolytes will follow up Consultation Date/Type/Reason Admit Date/Time Sep 27, 2018 at 01:07 Initial Consult Date 09/27/18 Type of Consult NEPHROLOGY Requesting Provider: CORBIN GAYTAN Date/Time of Note DATE: 09/28/18 TIME: 08:45 24 HR Interval Summary Free Text/Dictation BUn/Cr went upto 38/1.93, BP stable Exam/Review of Systems Exam Vitals Vital Signs Date Temp Pulse Resp B/P (MAP) Pulse Ox O2 O2 Flow FiO2 Time Delivery Rate 09/28/18 100.2 08:03 09/28/18 96 20 125/78 96 07:08 (94) 09/28/18 Room Air 04:20 09/28/18 2.0 01:41 Intake and Output 09/27/18 09/27/18 09/28/18 1515:00 23:00 07:00 IntakeIntake Total 650 ml 850 ml 1850 ml OutputOutput Total 1400 ml 1000 ml 2000 ml BalanceBalance -750 ml -150 ml -150 ml Exam Constitutional: awake Psych: confusion Head: normocephalic, atraumatic Respiratory: clear to auscultation, normal air movement Cardiovascular: regular rate and rhythm, nl pulses; Gastrointestinal: soft, non-tender, other (GT); No distended, No tender Genitourinary - Male: other (FC) Musculoskeletal: other (L hip and LLE have well healed surgical scars) Extremities: No edema Neurological: Non focal Results Result Diagram: 09/28/18 0551 09/28/18 0551 Results 24hrs Laboratory Tests Test 09/28/18 05:51 White Blood Count 11.6 #H Red Blood Count 2.94 L Hemoglobin 9.2 L Hematocrit 28.3 L Mean Corpuscular Volume 96.3 Mean Corpuscular Hemoglobin 31.3 Mean Corpuscular Hemoglobin Concent 32.5 Red Cell Distribution Width 16.0 H Platelet Count 185 Mean Platelet Volume 10.6 H Immature Granulocytes % 0.300 Neutrophils % Lymphocytes % Monocytes % Eosinophils % Basophils % Nucleated Red Blood Cells % 0.0 Immature Granulocytes # 0.040 H Neutrophils # Lymphocytes # Monocytes # Eosinophils # Basophils # Nucleated Red Blood Cells # Sodium Level 133 L Potassium Level 4.1 Chloride Level 101 Carbon Dioxide Level 25 Anion Gap 7 Blood Urea Nitrogen 38 H Creatinine 1.93 H Est Glomerular Filtrat Rate mL/min 37 L Glucose Level 82 Hemoglobin A1c 5.2 Calcium Level 8.5 HIV (1&2) Antibody NEGATIVE Medications Medication Current Medications Sodium Chloride 1,000 ml @ 70 mls/hr [id number] IV Last administered on 09/28/18at 06:53; Admin Dose 70 MLS/HR; Start 09/27/18 at 03:00 Enoxaparin Sodium (Lovenox) 30 mg DAILY SC Last administered on 09/28/18at 08:25; Admin Dose 30 MG; Start 09/27/18 at 09:00 Ondansetron HCl (Zofran Inj) 4 mg Q6H PRN IV NAUSEA AND/OR VOMITING; Start 09/27/18 at 03:00 Docusate Sodium (Colace Liquid Cup) 50 mg DAILY GTB Last administered on 09/28/18at 08:26; Admin Dose 50 MG; Start 09/28/18 at 09:00 Famotidine (Pepcid) 20 mg BID GTB Last administered on 09/28/18at 08:19; Admin Dose 20 MG; Start 09/27/18 at 21:00 Folic Acid (Folic Acid) 1 mg DAILY GTB Last administered on 09/28/18at 08:27; Admin Dose 1 MG; Start 09/28/18 at 09:00 Metoprolol Tartrate (Lopressor) 50 mg BID GTB Last administered on 09/28/18at 08:28; Admin Dose 50 MG; Start 09/27/18 at 12:00 Senna (Senokot) 1 tab QHS GTB Last administered on 09/27/18 20:07; Admin Dose 1 TAB; Start 09/27/18 at 21:00 Multivitamins/ Minerals (Theragran-M) 1 tab DAILY GTB Last administered on 09/28/18 08:26; Admin Dose 1 TAB; Start 09/28/18 at 09:00 Quetiapine Fumarate (Seroquel) 25 mg BID GTB Last administered on 09/28/18 08:19; Admin Dose 25 MG; Start 09/27/18 at 12:00 Cefepime HCl 50 ml @ 100 mls/hr Q12 IVPB Last administered on 09/28/18 08:20; Admin Dose 100 MLS/HR; Start 09/27/18 at 21:00 Nystatin (Nystatin Powder) 1 applic BID TOP Last administered on 09/28/18 08:26; Admin Dose 1 APPLIC; Start 09/27/18 at 21:00 Acetaminophen (Tylenol Tab) 650 mg Q4H PRN PO MILD PAIN(1-3)OR ELEVATED TEMP Last administered on 09/28/18 08:03; Admin Dose 650 MG; Start 09/28/18 at 05:00 MARCOS MOODY MD Sep 28, 2018 08:45
[2018-09-28] MEDS ORDERED: MULTIVITAMINS THERAPEUTIC TAB GTB SCH (09:00)
--- NOTE | 2018-09-28 11:20 | CONS ---
Assessment/Plan Assessment/Plan Hospital Course (Demo Recall) assessment/impression - severe sepsis due to bacteremia and UTI - fever curve and leukocytosis are improving slowly - bacteremia and UTI due to Gram negative rods. - UTI d/t Enterobacter cloacae. Rojas catheter was changed at [facility] - BPH, has an indwelling Rojas at [facility] - worsening - chronic encephalopathy, talks non-sense only - h/o dysphagia, improved - h/o GT placement but Pt takes pureed diet - h/o fracture of L hip h/o ORIF - h/o surgeries of LLE and L shoulder - intertrigo of groin area recommendations - await the species and sensitivity of Gram negative rods in the blood cultures - follow up repeat blood cultures from 09/27/2018 (in process) - continue bacteremia-dose of cefepime (09/26/2018-) - continue nystatin to the tinea of the groin BID Management d/w KAROL Desai and with Dr. Friedman Consultation Date/Type/Reason Admit Date/Time Sep 27, 2018 at 01:07 Initial Consult Date 09/27/18 Type of Consult Infectious Disease Requesting Provider: CORBIN GAYTAN Date/Time of Note DATE: 09/28/18 TIME: 11:14 24 HR Interval Summary Free Text/Dictation WBC is trending down. Fever curve is slowly improving; Tmax 100.2 F. Urine cx grew Enterobacter. Constitutional: disoriented Exam/Review of Systems Exam Vitals Vital Signs Date Temp Pulse Resp B/P (MAP) Pulse Ox O2 O2 Flow FiO2 Time Delivery Rate 09/28/18 98.3 09:03 09/28/18 Nasal 3.0 08:00 Cannula 09/28/18 96 20 125/78 96 07:08 (94) Intake and Output 09/27/18 09/27/18 09/28/18 1515:00 23:00 07:00 IntakeIntake Total 650 ml 850 ml 1850 ml OutputOutput Total 1400 ml 1000 ml 2000 ml BalanceBalance -750 ml -150 ml -150 ml Constitutional: alert, well developed, frail, other (talking gibberish, soft voice) Psych: confusion Head: normocephalic, atraumatic Eyes: nl conjunctiva, nl lids, nl sclera ENMT: nl external ears & nose, nl nasal mucosa & septum Neck: non-tender Respiratory: clear to auscultation, normal air movement, other (On O2 via NC) Cardiovascular: regular rate and rhythm, nl pulses Gastrointestinal: soft, non-tender, other (GT with TF in progress); No distended Genitourinary - Male: other (Rojas in place with hazy nancy urine) Musculoskeletal: other (L hip and LLE with well healed surgical scars) Extremities: No edema Neurological: confused, other (no commands; no tracking) Skin: nl turgor, rash or lesions (faint fungal rash in the groin noted) Results Result Diagram: 09/28/1855009/28/1851 Results 24hrs Laboratory Tests Test 09/28/18 05:51 White Blood Count 11.6 #H Red Blood Count 2.94 L Hemoglobin 9.2 L Hematocrit 28.3 L Mean Corpuscular Volume 96.3 Mean Corpuscular Hemoglobin 31.3 Mean Corpuscular Hemoglobin Concent 32.5 Red Cell Distribution Width 16.0 H Platelet Count 185 Mean Platelet Volume 10.6 H Immature Granulocytes % 0.300 Neutrophils % Segmented Neutrophils % (Manual) 66 Band Neutrophils % (Manual) 27 H Lymphocytes % Lymphocytes % (Manual) 3 L Monocytes % Monocytes % (Manual) 4 Eosinophils % Basophils % Nucleated Red Blood Cells % 0.0 Immature Granulocytes # 0.040 H Neutrophils # Neutrophils # (Manual) 8.0 H Band Neutrophils # 3.1 H Lymphocytes (Manual) 0.3 L Lymphocytes # Monocytes # Monocytes # (Manual) 0.4 Eosinophils # Basophils # Nucleated Red Blood Cells # Platelet Estimate NORMAL Giant Platelets 1 H Poikilocytosis 3+ Anisocytosis 1+ Sodium Level 133 L Potassium Level 4.1 Chloride Level 101 Carbon Dioxide Level 25 Anion Gap 7 Blood Urea Nitrogen 38 H Creatinine 1.93 H Est Glomerular Filtrat Rate mL/min 37 L Glucose Level 82 Hemoglobin A1c 5.2 Calcium Level 8.5 HIV (1&2) Antibody NEGATIVE Medications Medication Current Medications Enoxaparin Sodium (Lovenox) 30 mg DAILY SC Last administered on 09/28/18at 08:25; Admin Dose 30 MG; Start 09/27/18 at 09:00 Ondansetron HCl (Zofran Inj) 4 mg Q6H PRN IV NAUSEA AND/OR VOMITING; Start at 03:00 Docusate Sodium (Colace Liquid Cup) 50 mg DAILY GTB Last administered on 09/28/18 08:26; Admin Dose 50 MG; Start 09/28/18 at 09:00 Famotidine (Pepcid) 20 mg BID GTB Last administered on 09/28/18 08:19; Admin Dose 20 MG; Start 09/27/18 at 21:00 Folic Acid (Folic Acid) 1 mg DAILY GTB Last administered on 09/28/18 08:27; Admin Dose 1 MG; Start 09/28/18 at 09:00 Metoprolol Tartrate (Lopressor) 50 mg BID GTB Last administered on 09/28/18 08:28; Admin Dose 50 MG; Start 09/27/18 at 12:00 Senna (Senokot) 1 tab QHS GTB Last administered on 09/27/18 20:07; Admin Dose 1 TAB; Start 09/27/18 at 21:00 Multivitamins/ Minerals (Theragran-M) 1 tab DAILY GTB Last administered on 09/10 08:26; Admin Dose 1 TAB; Start 09/28/18 at 09:00 Quetiapine Fumarate (Seroquel) 25 mg BID GTB Last administered on 09/28/18 08:19; Admin Dose 25 MG; Start 09/27/18 at 12:00 Cefepime HCl 50 ml @ 100 mls/hr Q12 IVPB Last administered on 09/28/18 08:20; Admin Dose 100 MLS/HR; Start 09/27/18 at 21:00 Nystatin (Nystatin Powder) 1 applic BID TOP Last administered on 09/28/18 08:26; Admin Dose 1 APPLIC; Start 09/27/18 at 21:00 Acetaminophen (Tylenol Tab) 650 mg Q4H PRN PO MILD PAIN(1-3)OR ELEVATED TEMP Last administered on 09/28/18 08:03; Admin Dose 650 MG; Start 09/28/18 at 05:00 ZUHAIR PHIPPS NP Sep 28, 2018 11:20
--- NOTE | 2018-09-28 12:17 | PN ---
Date/Time of Note Date/Time of Note DATE: 09/28/18 TIME: 12:13 Assessment/Plan VTE Prophylaxis Risk score (from [facility])>0 risk: 5 SCD applied (from [facility]): No SCD contraindicated: other Pharmacological prophylaxis: other Pharm contraindication: other Lines/Catheters IV Catheter Type (from [facility]): Peripheral IV Urinary Cath still in place: Yes Reason Cath still needed: urinary retention Assessment/Plan Assessment/Plan - Acute febrile illness 2/2 uti, bacteremia -- bacteremia and UTI due to Gram negative rods. - per ID consult - Urinary Tract Infection- d/t Enterobacter cloacae. Curry catheter was changed at [facility] - Leukocytosis - Hyponatremia - Acute kidney injury due to ATN from UTI and Prerenal azotemia - IVF - per nephro consult-Dr Rosa Zapata - Anemia- stable - H/o Chronic encephalopathy - H/o Schizophrenia - h/o GT placement but Pt takes pureed diet - aspiration precautions - h/o dysphagia, improved - h/o fracture of L hip h/o ORIF - h/o surgeries of LLE and L shoulder - H/o BPH with Urinary obstruction ,chronic indwelling curry catheter - Lovenox for DVT prophylaxis Patient seen in collaboration with Dr Shafer Result Diagram: 09/28/18 0551 09/28/18 0551 Results 24hrs Laboratory Tests Test 09/28/18 05:51 White Blood Count 11.6 #H Red Blood Count 2.94 L Hemoglobin 9.2 L Hematocrit 28.3 L Mean Corpuscular Volume 96.3 Mean Corpuscular Hemoglobin 31.3 Mean Corpuscular Hemoglobin Concent 32.5 Red Cell Distribution Width 16.0 H Platelet Count 185 Mean Platelet Volume 10.6 H Immature Granulocytes % 0.300 Neutrophils % Segmented Neutrophils % (Manual) 66 Band Neutrophils % (Manual) 27 H Lymphocytes % Lymphocytes % (Manual) 3 L Monocytes % Monocytes % (Manual) 4 Eosinophils % Basophils % Nucleated Red Blood Cells % 0.0 Immature Granulocytes # 0.040 H Neutrophils # Neutrophils # (Manual) 8.0 H Band Neutrophils # 3.1 H Lymphocytes (Manual) 0.3 L Lymphocytes # Monocytes # Monocytes # (Manual) 0.4 Eosinophils # Basophils # Nucleated Red Blood Cells # Platelet Estimate NORMAL Giant Platelets 1 H Poikilocytosis 3+ Anisocytosis 1+ Sodium Level 133 L Potassium Level 4.1 Chloride Level 101 Carbon Dioxide Level 25 Anion Gap 7 Blood Urea Nitrogen 38 H Creatinine 1.93 H Est Glomerular Filtrat Rate mL/min 37 L Glucose Level 82 Hemoglobin A1c 5.2 Calcium Level 8.5 HIV (1&2) Antibody NEGATIVE Subjective 24 Hr Interval Summary Free Text/Dictation resting WBC elevated; afebrile Cr1.93 no new events overnight Eyes: no complaints ENT: no complaints Respiratory: no complaints Cardiovascular: no complaints Gastrointestinal: no complaints Genitourinary: no complaints Musculoskeletal: no complaints Psychological: nl mood/affect Exam/Review of Systems Exam Vitals Vital Signs Date Temp Pulse Resp B/P (MAP) Pulse Ox O2 O2 Flow FiO2 Time Delivery Rate 09/28/18 97.9 68 20 114/77 99 Nasal 11:14 (89) Cannula 09/28/18 3.0 08:00 Intake and Output 09/27/18 09/27/18 09/28/18 1515:00 23:00 07:00 IntakeIntake Total 650 ml 850 ml 1850 ml OutputOutput Total 1400 ml 1000 ml 2000 ml BalanceBalance -750 ml -150 ml -150 ml Constitutional: alert, well developed Psych: nl mood/affect Head: normocephalic Eyes: nl lids, nl sclera ENMT: nl external ears & nose Neck: non-tender Respiratory: clear to auscultation Cardiovascular: nl pulses, other (S1S2) Gastrointestinal: soft, non-tender Musculoskeletal: nl extremities to inspection Extremities: normal pulses Neurological: other (Alert) Skin: other (no skin rash ) Lymph: nontender Results Results 24hrs Laboratory Tests Test 09/28/18 05:51 White Blood Count 11.6 #H Red Blood Count 2.94 L Hemoglobin 9.2 L Hematocrit 28.3 L Mean Corpuscular Volume 96.3 Mean Corpuscular Hemoglobin 31.3 Mean Corpuscular Hemoglobin Concent 32.5 Red Cell Distribution Width 16.0 H Platelet Count 185 Mean Platelet Volume 10.6 H Immature Granulocytes % 0.300 Neutrophils % Segmented Neutrophils % (Manual) 66 Band Neutrophils % (Manual) 27 H Lymphocytes % Lymphocytes % (Manual) 3 L Monocytes % Monocytes % (Manual) 4 Eosinophils % Basophils % Nucleated Red Blood Cells % 0.0 Immature Granulocytes # 0.040 H Neutrophils # Neutrophils # (Manual) 8.0 H Band Neutrophils # 3.1 H Lymphocytes (Manual) 0.3 L Lymphocytes # Monocytes # Monocytes # (Manual) 0.4 Eosinophils # Basophils # Nucleated Red Blood Cells # Platelet Estimate NORMAL Giant Platelets 1 H Poikilocytosis 3+ Anisocytosis 1+ Sodium Level 133 L Potassium Level 4.1 Chloride Level 101 Carbon Dioxide Level 25 Anion Gap 7 Blood Urea Nitrogen 38 H Creatinine 1.93 H Est Glomerular Filtrat Rate mL/min 37 L Glucose Level 82 Hemoglobin A1c 5.2 Calcium Level 8.5 HIV (1&2) Antibody NEGATIVE Medications Medication Current Medications Enoxaparin Sodium (Lovenox) 30 mg DAILY SC Last administered on 09/28/18 08:25; Admin Dose 30 MG; Start 09/27/18 at 09:00 Ondansetron HCl (Zofran Inj) 4 mg Q6H PRN IV NAUSEA AND/OR VOMITING; Start 09/27/18 at 03:00 Docusate Sodium (Colace Liquid Cup) 50 mg DAILY GTB Last administered on 09/28/18 08:26; Admin Dose 50 MG; Start 09/28/18 at 09:00 Famotidine (Pepcid) 20 mg BID GTB Last administered on 09/28/18 08:19; Admin Dose 20 MG; Start 09/27/18 at 21:00 Folic Acid (Folic Acid) 1 mg DAILY GTB Last administered on 09/28/18 08:27; Admin Dose 1 MG; Start 09/28/18 at 09:00 Metoprolol Tartrate (Lopressor) 50 mg BID GTB Last administered on 09/28/18 08:28; Admin Dose 50 MG; Start 09/27/18 at 12:00 Senna (Senokot) 1 tab QHS GTB Last administered on 09/27/18at 20:07; Admin Dose 1 TAB; Start 09/27/18 at 21:00 Multivitamins/ Minerals (Theragran-M) 1 tab DAILY GTB Last administered on 09/28/18 08:26; Admin Dose 1 TAB; Start 09/28/18 at 09:00 Quetiapine Fumarate (Seroquel) 25 mg BID GTB Last administered on 09/28/18 08:19; Admin Dose 25 MG; Start 09/27/18 at 12:00 Cefepime HCl 50 ml @ 100 mls/hr Q12 IVPB Last administered on 09/28/18 08:20; Admin Dose 100 MLS/HR; Start 09/27/18 at 21:00 Nystatin (Nystatin Powder) 1 applic BID TOP Last administered on 09/28/18 08:26; Admin Dose 1 APPLIC; Start 09/27/18 at 21:00 Acetaminophen (Tylenol Tab) 650 mg Q4H PRN PO MILD PAIN(1-3)OR ELEVATED TEMP Last administered on 09/28/18 08:03; Admin Dose 650 MG; Start 09/28/18 at 05:00 CORBIN GAYTAN Sep 28, 2018 12:17
[2018-09-28] MEDS: SENNA TAB GTB SCH (20:38)
[2018-09-29] VITALS (7 sets, daily range): BP systolic 131–164; BP diastolic 68–97; PULSE 65–100; RESP 16–19
[2018-09-29] MEDS: QUETIAPINE 25 MG TAB GTB SCH ×2 (08:26→20:59)
[2018-09-29] MEDS: DOCUSATE SODIUM 10 MG/ML (10ML CUP) GTB SCH (08:26)
[2018-09-29] MEDS: MULTIVITAMINS/MINERALS TAB GTB SCH (08:26)
[2018-09-29] MEDS: FOLIC ACID 1 MG TAB GTB SCH (08:27)
[2018-09-29] MEDS: FAMOTIDINE 20 MG TAB GTB SCH ×2 (08:27→20:59)
[2018-09-29] MEDS: CEFEPIME 2GM/50 ML (PMX) 50 ML IVPB SCH ×2 (08:28→21:05)
[2018-09-29] MEDS: METOPROLOL 50 MG TAB GTB SCH ×2 (08:28→21:01)
[2018-09-29] MEDS: NYSTATIN 30 GM POWDER BTL TOP SCH ×2 (08:28→21:01)
[2018-09-29] MEDS: ENOXAPARIN 30 MG/0.3 ML SYG SC SCH (08:38)
--- NOTE | 2018-09-29 10:31 | PN ---
Date/Time of Note Date/Time of Note DATE: 09/29/18 TIME: 10:27 Assessment/Plan VTE Prophylaxis Risk score (from [facility] [place])>0 risk: 5 SCD applied (from [facility]): No SCD contraindicated: other Pharmacological prophylaxis: other Pharm contraindication: other Lines/Catheters IV [facility]ter Type (from [facility]): Peripheral IV Urinary Cath still in place: Yes Reason Cath still needed: urinary retention Assessment/Plan Assessment/Plan - Acute febrile illness 2/2 uti, bacteremia -- bacteremia and UTI due to Gram negative rods. - per ID consult - Urinary Tract Infection- d/t Enterobacter cloacae. Curry catheter was changed at [facility] - Leukocytosis - Hyponatremia - Acute kidney injury due to ATN from UTI and Prerenal azotemia - IVF - per nephro consult-Dr Rosa Zapata - Anemia- stable - H/o Chronic encephalopathy - H/o Schizophrenia - h/o GT placement but Pt takes pureed diet - aspiration precautions - h/o dysphagia, improved - h/o fracture of L hip h/o ORIF - h/o surgeries of LLE and L shoulder - H/o BPH with Urinary obstruction ,chronic indwelling curry catheter - Lovenox for DVT prophylaxis Patient seen in collaboration with Dr Shafer Result Diagram: 09/28/18 0551 09/28/18 0551 Subjective 24 Hr Interval Summary Free Text/Dictation Cr trended up afebrile ENT: no complaints Respiratory: no complaints Cardiovascular: no complaints Gastrointestinal: no complaints Genitourinary: no complaints Musculoskeletal: no complaints Exam/Review of Systems Exam Vitals Vital Signs Date Temp Pulse Resp B/P (MAP) Pulse Ox O2 O2 Flow FiO2 Time Delivery Rate 09/29/18 Nasal 3.0 08:00 Cannula 09/29/18 98.0 68 18 131/78 98 07:48 (95) 09/29/18 27 06:01 Intake and Output 09/28/18 09/28/18 09/29/18 1515:00 23:00 07:00 IntakeIntake Total 1480 ml 700 ml OutputOutput Total 4000 ml 700 ml 4150 ml BalanceBalance -2520 ml -700 ml -3450 ml Constitutional: alert, well developed Psych: nl mood/affect Head: normocephalic Eyes: nl lids, nl sclera ENMT: nl external ears & nose Neck: non-tender Respiratory: clear to auscultation Cardiovascular: nl pulses, other (s1s2) Gastrointestinal: soft, non-tender Musculoskeletal: nl extremities to inspection Extremities: normal pulses Neurological: nl speech, other (alert/responsive) Skin: nl turgor Lymph: nontender Medications Medication Current Medications Enoxaparin Sodium (Lovenox) 30 mg DAILY SC Last administered on 09/29/18 08 :38; Admin Dose 30 MG; Start 09/27/18 at 09:00 Ondansetron HCl (Zofran Inj) 4 mg Q6H PRN IV NAUSEA AND/OR VOMITING; Start 09/27/18 at 03:00 Docusate Sodium (Colace Liquid Cup) 50 mg DAILY GTB Last administered on 09/29/18 08:26; Admin Dose 50 MG; Start 09/28/18 at 09:00 Famotidine (Pepcid) 20 mg BID GTB Last administered on 09/29/18 08:27; Admin Dose 20 MG; Start 09/27/18 at 21:00 Folic Acid (Folic Acid) 1 mg DAILY GTB Last administered on 09/29/18 08:27; Admin Dose 1 MG; Start 09/28/18 at 09:00 Metoprolol Tartrate (Lopressor) 50 mg BID GTB Last administered on 09/29/18 08:28; Admin Dose 50 MG; Start 09/27/18 at 12:00 Senna (Senokot) 1 tab QHS GTB Last administered on 09/28/18 20:38; Admin Dose 1 TAB; Start 09/27/18 at 21:00 Multivitamins/ Minerals (Theragran-M) 1 tab DAILY GTB Last administered on 09/29/18 08:26; Admin Dose 1 TAB; Start 09/28/18 at 09:00 Quetiapine Fumarate (Seroquel) 25 mg BID GTB Last administered on 09/29/18 08:26; Admin Dose 25 MG; Start 09/27/18 at 12:00 Cefepime HCl 50 ml @ 100 mls/hr Q12 IVPB Last administered on 09/29/18 08:28; Admin Dose 100 MLS/HR; Start 09/27/18 at 21:00 Nystatin (Nystatin Powder) 1 applic BID TOP Last administered on 09/29/18 08:28; Admin Dose 1 APPLIC; Start 09/27/18 at 21:00 Acetaminophen (Tylenol Tab) 650 mg Q4H PRN PO MILD PAIN(1-3)OR ELEVATED TEMP Last administered on 09/28/18 08:03; Admin Dose 650 MG; Start 09/28/18 at 05:00 CORBIN GAYTAN Sep 29, 2018 10:31
--- NOTE | 2018-09-29 20:10 | CONS ---
Assessment/Plan Assessment/Plan Hospital Course (Demo Recall) assessment/impression - severe sepsis due to bacteremia and UTI - fever curve and leukocytosis are improving slowly - bacteremia and UTI due to Gram negative rods (Enterobacter cloacae) - UTI d/t Enterobacter cloacae & Enterobacter cloacae complex. Rojas catheter was changed at [facility] - BPH, has an indwelling Rojas at [facility] - worsening yesterday - chronic encephalopathy, talks non-sense only - h/o dysphagia, improved - h/o GT placement but Pt takes pureed diet - h/o fracture of L hip h/o ORIF - h/o surgeries of LLE and L shoulder - intertrigo of groin area recommendations - ordered to repeat blood cultures x2, 15 min apart today - will ask Micro tomorrow to release susceptibility of Enterobacter in blood culture to cefepime - follow up repeat blood cultures from 09/27/2018 (GNR in on set) - continue bacteremia-dose of cefepime (09/26/2018-) - continue nystatin to the tinea of the groin BID Management d/w RN Mariah earlier and with Dr. Friedman Consultation Date/Type/Reason Admit Date/Time Sep 27, 2018 at 01:07 Initial Consult Date 09/27/18 Type of Consult Infectious Disease Requesting Provider: CORBIN GAYTAN Date/Time of Note DATE: 09/29/18 TIME: 20:10 24 HR Interval Summary Free Text/Dictation I received a call from pt's RN earlier today to report that one set of blood cultures from 09/27/2018 is growing GNR. Subjective hx not possible: other (speaking gibberish ) Exam/Review of Systems Exam Vitals Vital Signs Date Temp Pulse Resp B/P (MAP) Pulse Ox O2 O2 Flow FiO2 Time Delivery Rate 09/29/18 98.2 85 18 134/93 96 Nasal 19:50 (107) Cannula 09/29/18 2.0 27 19:39 Intake and Output 09/28/18 09/28/18 09/29/18 1515:00 23:00 07:00 IntakeIntake Total 1480 ml 700 ml OutputOutput Total 4000 ml 700 ml 4150 ml BalanceBalance -2520 ml -700 ml -3450 ml Exam Constitutional: alert, well developed, frail, other (speaking gibberish, soft voice) Psych: confusion Head: normocephalic, atraumatic Eyes: nl conjunctiva, nl lids, nl sclera ENMT: nl external ears & nose, nl nasal mucosa & septum (no thrush) Neck: non-tender Respiratory: clear to auscultation, normal air movement, other (On O2 via NC) Cardiovascular: regular rate and rhythm, nl pulses Gastrointestinal: soft, non-tender, other (GT with TF in progress); No distended Genitourinary - Male: other (Rojas in place with hazy nancy urine) Musculoskeletal: other (L hip and LLE with well healed surgical scars) Extremities: No edema Neurological: confused, other (Occ tracking; follows simple commands like open mouth) Skin: nl turgor, rash or lesions (faint fungal rash in the groin noted - improved from yesterday) Results Result Diagram: 09/28/1855009/28/18550 Medications Medication Current Medications Enoxaparin Sodium (Lovenox) 30 mg DAILY SC Last administered on 09/29/18 08:38; Admin Dose 30 MG; Start 09/27/18 at 09:00 Ondansetron HCl (Zofran Inj) 4 mg Q6H PRN IV NAUSEA AND/OR VOMITING; Start 09/27/18 at 03:00 Docusate Sodium (Colace Liquid Cup) 50 mg DAILY GTB Last administered on 09/29/18at 08:26; Admin Dose 50 MG; Start 09/28/18 at 09:00 Famotidine (Pepcid) 20 mg BID GTB Last administered on 09/29/18 08:27; Admin Dose 20 MG; Start 09/27/18 at 21:00 Folic Acid (Folic Acid) 1 mg DAILY GTB Last administered on 09/29/18 08:27; Admin Dose 1 MG; Start 09/28/18 at 09:00 Metoprolol Tartrate (Lopressor) 50 mg BID GTB Last administered on 09/29/18 08:28; Admin Dose 50 MG; Start 09/27/18 at 12:00 Senna (Senokot) 1 tab QHS GTB Last administered on 09/28/18at 20:38; Admin Dose 1 TAB; Start 09/27/18 at 21:00 Multivitamins/ Minerals (Theragran-M) 1 tab DAILY GTB Last administered on 09/29/18 08:26; Admin Dose 1 TAB; Start 09/28/18 at 09:00 Quetiapine Fumarate (Seroquel) 25 mg BID GTB Last administered on 09/29/18 08:26; Admin Dose 25 MG; Start 09/27/18 at 12:00 Cefepime HCl 50 ml @ 100 mls/hr Q12 IVPB Last administered on 09/29/18 08:28; Admin Dose 100 MLS/HR; Start 09/27/18 at 21:00 Nystatin (Nystatin Powder) 1 applic BID TOP Last administered on 09/29/18 08:28; Admin Dose 1 APPLIC; Start 09/27/18 at 21:00 Acetaminophen (Tylenol Tab) 650 mg Q4H PRN PO MILD PAIN(1-3)OR ELEVATED TEMP Last administered on 09/28/18 08:03; Admin Dose 650 MG; Start 09/28/18 at 05:00 ZUHAIR PHIPPS NP Sep 29, 2018 20:10
--- NOTE | 2018-09-29 20:49 | CONS ---
Assessment/Plan Assessment/Plan Assessment/Plan (Daily) 1. acute kidney injury due to ATN from UTI and Prerenal azotemia 2. SIRS due to UTI and bacteremia 3. Bacteremia with Blood Cx growing Gram negative rods 4. H/o BPH with Urinary obstruction ,c hronic indwelling curry catheter 5. H/o Chronic encephalopathy 6. H/o SChizophrenia 7. H/o G tube placement 8. H/o Fracture of left hip s/p ORIF Plan: BUN/Cr 38/1.93, other electrolytes stable , Losartan has been stopped due to MANAS._ Na 133- will give IVF NS at 75 cc/hr x 2 liter then stop Continue MTP 50mg PO BID for BP control, will use IV hydralazine for BP control Gold bx cefepie for Enterobacter bacteremia ,Renally dose all abx and monitor electrolytes will follow up Consultation Date/Type/Reason Admit Date/Time Sep 27, 2018 at 01:07 Initial Consult Date 09/27/18 Type of Consult NEPHROLOGY Requesting Provider: CORBIN GAYTAN Date/Time of Note DATE: 09/29/18 TIME: 20:49 Exam/Review of Systems Exam Vitals Vital Signs Date Temp Pulse Resp B/P (MAP) Pulse Ox O2 O2 Flow FiO2 Time Delivery Rate 09/29/18 98.2 85 18 134/93 96 Nasal 19:50 (107) Cannula 09/29/18 2.0 27 19:39 Intake and Output 09/28/18 09/28/18 09/29/18 1515:00 23:00 07:00 IntakeIntake Total 1480 ml 700 ml OutputOutput Total 4000 ml 700 ml 4150 ml BalanceBalance -2520 ml -700 ml -3450 ml Exam Constitutional: awake Head: normocephalic, atraumatic Respiratory: clear to auscultation, normal air movement Cardiovascular: regular rate and rhythm, nl pulses; Gastrointestinal: soft, non-tender, other (GT); No distended, No tender Genitourinary - Male: other (FC) Musculoskeletal: other (L hip and LLE have well healed surgical scars) Extremities: No edema Neurological: Non focal Results Result Diagram: 09/28/18 0551 09/28/18 0551 Medications Medication Current Medications Enoxaparin Sodium (Lovenox) 30 mg DAILY SC Last administered on 09/29/18at 08:38; Admin Dose 30 MG; Start 09/27/18 at 09:00 Ondansetron HCl (Zofran Inj) 4 mg Q6H PRN IV NAUSEA AND/OR VOMITING; Start 09/27/18 at 03:00 Docusate Sodium (Colace Liquid Cup) 50 mg DAILY GTB Last administered on 09/29/18 08:26; Admin Dose 50 MG; Start 09/28/18 at 09:00 Famotidine (Pepcid) 20 mg BID GTB Last administered on 09/29/18 08:27; Admin Dose 20 MG; Start 09/27/18 at 21:00 Folic Acid (Folic Acid) 1 mg DAILY GTB Last administered on 09/29/18 08:27; Admin Dose 1 MG; Start 09/28/18 at 09:00 Metoprolol Tartrate (Lopressor) 50 mg BID GTB Last administered on 09/29/18 08:28; Admin Dose 50 MG; Start 09/27/18 at 12:00 Senna (Senokot) 1 tab QHS GTB Last administered on 09/28/18 20:38; Admin Dose 1 TAB; Start 09/27/18 at 21:00 Multivitamins/ Minerals (Theragran-M) 1 tab DAILY GTB Last administered on 09/29/18 08:26; Admin Dose 1 TAB; Start 09/28/18 at 09:00 Quetiapine Fumarate (Seroquel) 25 mg BID GTB Last administered on 09/29/18 08:26; Admin Dose 25 MG; Start 09/27/18 at 12:00 Cefepime HCl 50 ml @ 100 mls/hr Q12 IVPB Last administered on 09/29/18 08:28; Admin Dose 100 MLS/HR; Start 09/27/18 at 21:00 Nystatin (Nystatin Powder) 1 applic BID TOP Last administered on 09/29/18 08:28; Admin Dose 1 APPLIC; Start 09/27/18 at 21:00 Acetaminophen (Tylenol Tab) 650 mg Q4H PRN PO MILD PAIN(1-3)OR ELEVATED TEMP Last administered on 09/28/18 08:03; Admin Dose 650 MG; Start 09/28/18 at 05:00 MARCOS MOODY MD Sep 29, 2018 20:49
[2018-09-29] MEDS: SENNA TAB GTB SCH (21:00)
[2018-09-30] MEDS: SOD CHLORIDE 0.9% 1,000 ML IV SCH ×2 (00:30→13:35)
[2018-09-30 02:41] VITALS: BP 155/88; PULSE 80; RESP 18
[2018-09-30 05:52] VITALS: BP 144/98; PULSE 88; RESP 16
[2018-09-30 07:38] VITALS: BP 142/78; PULSE 82; RESP 18
[2018-09-30] MEDS: DOCUSATE SODIUM 10 MG/ML (10ML CUP) GTB SCH (08:02)
[2018-09-30] MEDS: ENOXAPARIN 30 MG/0.3 ML SYG SC SCH (08:02)
[2018-09-30] MEDS: QUETIAPINE 25 MG TAB GTB SCH ×2 (08:03→20:50)
[2018-09-30] MEDS: METOPROLOL 50 MG TAB GTB SCH ×2 (08:05→20:50)
[2018-09-30] MEDS: FOLIC ACID 1 MG TAB GTB SCH (08:06)
[2018-09-30] MEDS: FAMOTIDINE 20 MG TAB GTB SCH ×2 (08:06→20:50)
[2018-09-30] MEDS: MULTIVITAMINS/MINERALS TAB GTB SCH (08:06)
[2018-09-30] MEDS: CEFEPIME 2GM/50 ML (PMX) 50 ML IVPB SCH ×2 (09:51→20:48)
--- NOTE | 2018-09-30 10:29 | PSY ---
Date/Time of Note Date/Time of Note DATE: 09/30/18 TIME: 09:44 Psychiatric Subjective Eval Consent Pt consented to telemedicine: No Subjective Evaluation Patient location: inpatient Chief Complaint: BIB EMS for fever, given tylenol at 7PM History of present illness Patient is a 53-year-old male; from SNF He is unable to provide any history, Patient is on telemetry unit, selectively mute. He responds with monosyllables sometimes. He has poor coping skills. Explained to patient that Klonopin will be added to his regimen, and he agreed. No acute issues reported Past psychiatric history History of mental illness Hospitalization: other Medical history Problems Medical Problems: (1) MANAS (acute kidney injury) Status: Acute (2) Anemia Status: Acute (3) Dehydration Status: Acute (4) Hyponatremia Status: Acute (5) UTI (urinary tract infection) Status: Acute Allergies: Coded Allergies: No Known Allergy (Unverified , 09/26/18) Substance Abuse Substance abuse history: No Prior substance abuse treatmen: No Social History Marital status: other DPA/Conservatorship: No Psychiatric Objective Eval Review of Systems: Review of Systems: Not Applicable Physical Examination: Physical Examination: Not Applicable Mental Status Examination: Appearance: Poor Hygiene Eye Contact: Fair Behavior: Guarded Speech: Other (Selectively mote and other response with nodding ) Laboratory Results Laboratory Tests Test 09/30/18 04:31 09/30/18 07:10 White Blood Count 7.9 10^3/ul Red Blood Count 3.11 10^6/ul Hemoglobin 9.4 g/dl Hematocrit 29.4 % Mean Corpuscular Volume 94.5 fl Mean Corpuscular Hemoglobin 30.2 pg Mean Corpuscular Hemoglobin Concent 32.0 g/dl Red Cell Distribution Width 15.8 % Platelet Count 196 10^3/UL Mean Platelet Volume 10.0 fl Immature Granulocytes % 0.800 % Neutrophils % 78.5 % Lymphocytes % 9.5 % Monocytes % 9.4 % Eosinophils % 1.4 % Basophils % 0.4 % Nucleated Red Blood Cells % 0.0 /100WBC Immature Granulocytes # 0.060 10^3/ul Neutrophils # 6.2 10^3/ul Lymphocytes # 0.8 10^3/ul Monocytes # 0.7 10^3/ul Eosinophils # 0.1 10^3/ul Basophils # 0.0 10^3/ul Nucleated Red Blood Cells # 0.0 10^3/ul Prothrombin Time 14.2 Sec Prothrombin Time Ratio 1.1 INR International Normalized Ratio 1.09 Activated Partial Thromboplast Time 35.4 Sec Sodium Level 135 mmol/L Potassium Level 3.8 mmol/L Chloride Level 103 mmol/L Carbon Dioxide Level 25 mmol/L Anion Gap 7 Blood Urea Nitrogen 32 mg/dl Creatinine 1.18 mg/dl Est Glomerular Filtrat Rate mL/min > 60 mL/min Glucose Level 95 mg/dl Uric Acid 7.2 mg/dl Calcium Level 8.7 mg/dl Magnesium Level 1.9 mg/dl Total Bilirubin 0.3 mg/dl Direct Bilirubin 0.00 mg/dl Indirect Bilirubin 0.3 mg/dl Aspartate Amino Transf (AST/SGOT) 29 IU/L Alanine Aminotransferase (ALT/SGPT) 49 IU/L Alkaline Phosphatase 107 IU/L Total Protein 5.5 g/dl Albumin 2.8 g/dl Globulin 2.70 g/dl Albumin/Globulin Ratio 1.03 Lab Scanned Report [facility] [id number] Assessment and Plan Assessment/Diagnosis Diagnosis Psychotic Disorder NOS Recommendation/Plan Multiple antipsychotics: No Discharge Disposition: Other Legal Status: Voluntary (Does not meet criteria for 5150 hold) ARIA JOSEPH NP Sep 30, 2018 09:54
--- NOTE | 2018-09-30 11:44 | CONS ---
Assessment/Plan Assessment/Plan Assessment/Plan (Daily) 1. acute kidney injury due to ATN from UTI and Prerenal azotemia 2. SIRS due to UTI and bacteremia 3. Bacteremia with Blood Cx growing Gram negative rods 4. H/o BPH with Urinary obstruction ,c hronic indwelling curry catheter 5. H/o Chronic encephalopathy 6. H/o SChizophrenia 7. H/o G tube placement 8. H/o Fracture of left hip s/p ORIF Plan: BUN/Cr 32/1.18, other electrolytes stable , Losartan has been stopped due to MANAS._currently getting IVF NS at 75 cc/hr x 2 liter then stop Continue MTP 50mg PO BID for BP control, will use IV hydralazine for BP control Gold bx cefepie for Enterobacter bacteremia ,Renally dose all abx and monitor electrolytes will follow up Consultation Date/Type/Reason Admit Date/Time Sep 27, 2018 at 01:07 Initial Consult Date 09/27/18 Type of Consult NEPHROLOGY Requesting Provider: CORBIN GAYTAN Date/Time of Note DATE: 09/30/18 TIME: 11:44 Exam/Review of Systems Exam Vitals Vital Signs Date Temp Pulse Resp B/P (MAP) Pulse Ox O2 O2 Flow FiO2 Time Delivery Rate 09/30/18 2.0 09:13 09/30/18 97.2 82 18 142/78 98 07:38 (99) 09/30/18 Room Air 02:41 09/29/18 27 19:39 Intake and Output 09/29/18 09/29/18 09/30/18 1515:00 23:00 07:00 IntakeIntake Total 650 ml 960 ml 777.5 ml OutputOutput Total 3500 ml 2300 ml BalanceBalance 650 ml -2540 ml -1522.5 ml Results Result Diagram: 09/30/18 0431 09/30/18 0431 Results 24hrs Laboratory Tests Test 09/30/18 04:31 09/30/18 07:10 White Blood Count 7.9 # Red Blood Count 3.11 L Hemoglobin 9.4 L Hematocrit 29.4 L Mean Corpuscular Volume 94.5 Mean Corpuscular Hemoglobin 30.2 Mean Corpuscular Hemoglobin Concent 32.0 Red Cell Distribution Width 15.8 H Platelet Count 196 Mean Platelet Volume 10.0 Immature Granulocytes % 0.800 H Neutrophils % 78.5 H Lymphocytes % 9.5 L Monocytes % 9.4 Eosinophils % 1.4 Basophils % 0.4 Nucleated Red Blood Cells % 0.0 Immature Granulocytes # 0.060 H Neutrophils # 6.2 Lymphocytes # 0.8 Monocytes # 0.7 Eosinophils # 0.1 Basophils # 0.0 Nucleated Red Blood Cells # 0.0 Prothrombin Time 14.2 Prothrombin Time Ratio 1.1 INR International Normalized Ratio 1.09 Activated Partial Thromboplast Time 35.4 H Sodium Level 135 Potassium Level 3.8 Chloride Level 103 Carbon Dioxide Level 25 Anion Gap 7 Blood Urea Nitrogen 32 H Creatinine 1.18 Est Glomerular Filtrat Rate mL/min > 60 Glucose Level 95 Uric Acid 7.2 Calcium Level 8.7 Magnesium Level 1.9 Total Bilirubin 0.3 Direct Bilirubin 0.00 Indirect Bilirubin 0.3 Aspartate Amino Transf (AST/SGOT) 29 Alanine Aminotransferase (ALT/SGPT) 49 Alkaline Phosphatase 107 Total Protein 5.5 L Albumin 2.8 L Globulin 2.70 Albumin/Globulin Ratio 1.03 Lab Scanned Report REFERENCE LAB Medications Medication Current Medications Enoxaparin Sodium (Lovenox) 30 mg DAILY SC Last administered on 09/30/18 08:02; Admin Dose 30 MG; Start 09/27/18 at 09:00 Ondansetron HCl (Zofran Inj) 4 mg Q6H PRN IV NAUSEA AND/OR VOMITING; Start 09/27/18 at 03:00 Docusate Sodium (Colace Liquid Cup) 50 mg DAILY GTB Last administered on 09/30/18 08:02; Admin Dose 50 MG; Start 09/28/18 at 09:00 Famotidine (Pepcid) 20 mg BID GTB Last administered on 09/30/18 08:06; Admin Dose 20 MG; Start 09/27/18 at 21:00 Folic Acid (Folic Acid) 1 mg DAILY GTB Last administered on 09/30/18 08:06; Admin Dose 1 MG; Start 09/28/18 at 09:00 Metoprolol Tartrate (Lopressor) 50 mg BID GTB Last administered on 09/30/18 08:05; Admin Dose 50 MG; Start 09/27/18 at 12:00 Senna (Senokot) 1 tab QHS GTB Last administered on 09/29/18at 21:00; Admin Dose 1 TAB; Start 09/27/18 at 21:00 Multivitamins/ Minerals (Theragran-M) 1 tab DAILY GTB Last administered on 09/30/18at 08:06; Admin Dose 1 TAB; Start 09/28/18 at 09:00 Quetiapine Fumarate (Seroquel) 25 mg BID GTB Last administered on 09/30/18 08:03; Admin Dose 25 MG; Start 09/27/18 at 12:00 Cefepime HCl 50 ml @ 100 mls/hr Q12 IVPB Last administered on 09/30/18at 09:51; Admin Dose 100 MLS/HR; Start 09/27/18 at 21:00 Nystatin (Nystatin Powder) 1 applic BID TOP Last administered on 09/29/18at 21: 01; Admin Dose 1 APPLIC; Start 09/27/18 at 21:00 Acetaminophen (Tylenol Tab) 650 mg Q4H PRN PO MILD PAIN(1-3)OR ELEVATED TEMP Last administered on 09/28/18at 08:03; Admin Dose 650 MG; Start 09/28/18 at 05:00 Sodium Chloride 1,000 ml @ 75 mls/hr [id number] IV Last administered on 09/30/18at 00:30; Admin Dose 75 MLS/HR; Start 09/29/18 at 22:30; Stop 10/01/18 at 01:09 Clonazepam (Klonopin) 1 mg TID GTB ; Start 09/30/18 at 13:00 MARCOS MOODY MD Sep 30, 2018 11:44
[2018-09-30] MEDS: NYSTATIN 30 GM POWDER BTL TOP SCH ×2 (11:51→20:49)
[2018-09-30] MEDS: clonAZEPAM 0.5 MG TAB GTB SCH ×2 (13:34→20:50)
[2018-09-30 14:18] VITALS: BP 122/79; PULSE 77; RESP 16
--- NOTE | 2018-09-30 16:45 | PN ---
Date/Time of Note Date/Time of Note DATE: 09/30/18 TIME: 16:38 Assessment/Plan VTE Prophylaxis Risk score (from Ns)>0 risk: 4 SCD applied (from Ns): Yes Pharmacological prophylaxis: LMWH Lines/Catheters [facility] Peripheral IV Central line still needed: Yes Urinary Cath still in place: Yes Reason Cath still needed: urinary retention Assessment/Plan Hospital Course Patient has a like to wheezing I will start breathing treatment, per RN report patient is able to tolerate diet without nausea vomiting, urine output is adequate Via Rojas catheter patient remains afebrile, currently on cefepime for urinary tract infection and bacteremia. Assessment/Plan -Sepsis with gram-negative rods bacteremia secondary to urinary tract infection, continue antibiotics per ID. Dr. Maya is following in infection disease consultation. -Acute kidney injury and hyponatremia secondary to dehydration, resolving. Continue IV fluids. -GERD -Dyslipidemia -BPH -Chronic encephalopathy -Schizophrenia -Dysphagia with G-tube, patient is currently able to tolerate diet -Rojas catheter present on admission -History of fracture of left tibia and fibula Further recommendations based on clinical course. Plan of care discussed with Dr. Shafer. Result Diagram: 09/30/18 0431 09/30/18 0431 Results 24hrs Laboratory Tests Test 09/30/18 04:31 09/30/18 07:10 White Blood Count 7.9 # Red Blood Count 3.11 L Hemoglobin 9.4 L Hematocrit 29.4 L Mean Corpuscular Volume 94.5 Mean Corpuscular Hemoglobin 30.2 Mean Corpuscular Hemoglobin Concent 32.0 Red Cell Distribution Width 15.8 H Platelet Count 196 Mean Platelet Volume 10.0 Immature Granulocytes % 0.800 H Neutrophils % 78.5 H Lymphocytes % 9.5 L Monocytes % 9.4 Eosinophils % 1.4 Basophils % 0.4 Nucleated Red Blood Cells % 0.0 Immature Granulocytes # 0.060 H Neutrophils # 6.2 Lymphocytes # 0.8 Monocytes # 0.7 Eosinophils # 0.1 Basophils # 0.0 Nucleated Red Blood Cells # 0.0 Prothrombin Time 14.2 Prothrombin Time Ratio 1.1 INR International Normalized Ratio 1.09 Activated Partial Thromboplast Time 35.4 H Sodium Level 135 Potassium Level 3.8 Chloride Level 103 Carbon Dioxide Level 25 Anion Gap 7 Blood Urea Nitrogen 32 H Creatinine 1.18 Est Glomerular Filtrat Rate mL/min > 60 Glucose Level 95 Uric Acid 7.2 Calcium Level 8.7 Magnesium Level 1.9 Total Bilirubin 0.3 Direct Bilirubin 0.00 Indirect Bilirubin 0.3 Aspartate Amino Transf (AST/SGOT) 29 Alanine Aminotransferase (ALT/SGPT) 49 Alkaline Phosphatase 107 Total Protein 5.5 L Albumin 2.8 L Globulin 2.70 Albumin/Globulin Ratio 1.03 Lab Scanned Report REFERENCE LAB Exam/Review of Systems Exam Vitals Vital Signs Date Temp Pulse Resp B/P (MAP) Pulse Ox O2 O2 Flow FiO2 Time Delivery Rate 09/30/18 98.5 77 16 122/79 99 14:18 (93) 09/30/18 2.0 09:13 09/30/18 Room Air 02:41 09/29/18 27 19:39 Intake and Output 09/29/18 09/29/18 09/30/18 1515:00 23:00 07:00 IntakeIntake Total 650 ml 960 ml 777.5 ml OutputOutput Total 3500 ml 2300 ml BalanceBalance 650 ml -2540 ml -1522.5 ml Constitutional: alert Head: normocephalic Respiratory: clear to auscultation, wheezing (Light) Cardiovascular: nl pulses Gastrointestinal: soft, non-tender, other (G-tube) Genitourinary - Male: other (Rojas catheter) Musculoskeletal: nl extremities to inspection Neurological: confused Results Results 24hrs Laboratory Tests Test 09/30/18 04:31 09/30/18 07:10 White Blood Count 7.9 # Red Blood Count 3.11 L Hemoglobin 9.4 L Hematocrit 29.4 L Mean Corpuscular Volume 94.5 Mean Corpuscular Hemoglobin 30.2 Mean Corpuscular Hemoglobin Concent 32.0 Red Cell Distribution Width 15.8 H Platelet Count 196 Mean Platelet Volume 10.0 Immature Granulocytes % 0.800 H Neutrophils % 78.5 H Lymphocytes % 9.5 L Monocytes % 9.4 Eosinophils % 1.4 Basophils % 0.4 Nucleated Red Blood Cells % 0.0 Immature Granulocytes # 0.060 H Neutrophils # 6.2 Lymphocytes # 0.8 Monocytes # 0.7 Eosinophils # 0.1 Basophils # 0.0 Nucleated Red Blood Cells # 0.0 Prothrombin Time 14.2 Prothrombin Time Ratio 1.1 INR International Normalized Ratio 1.09 Activated Partial Thromboplast Time 35.4 H Sodium Level 135 Potassium Level 3.8 Chloride Level 103 Carbon Dioxide Level 25 Anion Gap 7 Blood Urea Nitrogen 32 H Creatinine 1.18 Est Glomerular Filtrat Rate mL/min > 60 Glucose Level 95 Uric Acid 7.2 Calcium Level 8.7 Magnesium Level 1.9 Total Bilirubin 0.3 Direct Bilirubin 0.00 Indirect Bilirubin 0.3 Aspartate Amino Transf (AST/SGOT) 29 Alanine Aminotransferase (ALT/SGPT) 49 Alkaline Phosphatase 107 Total Protein 5.5 L Albumin 2.8 L Globulin 2.70 Albumin/Globulin Ratio 1.03 Lab Scanned Report REFERENCE LAB Medications Medication Current Medications Enoxaparin Sodium (Lovenox) 30 mg DAILY SC Last administered on 09/30/18 08:02; Admin Dose 30 MG; Start 09/27/18 at 09:00 Ondansetron HCl (Zofran Inj) 4 mg Q6H PRN IV NAUSEA AND/OR VOMITING; Start 09/27/18 at 03:00 Docusate Sodium (Colace Liquid Cup) 50 mg DAILY GTB Last administered on 09/30/18 08:02; Admin Dose 50 MG; Start 09/28/18 at 09:00 Famotidine (Pepcid) 20 mg BID GTB Last administered on 09/30/18 08:06; Admin Dose 20 MG; Start 09/27/18 at 21:00 Folic Acid (Folic Acid) 1 mg DAILY GTB Last administered on 09/30/18 08:06; Admin Dose 1 MG; Start 09/28/18 at 09:00 Metoprolol Tartrate (Lopressor) 50 mg BID GTB Last administered on 09/30/18 08:05; Admin Dose 50 MG; Start 09/27/18 at 12:00 Senna (Senokot) 1 tab QHS GTB Last administered on 09/29/18 21:00; Admin Dose 1 TAB; Start 09/27/18 at 21:00 Multivitamins/ Minerals (Theragran-M) 1 tab DAILY GTB Last administered on 09/30/18 08:06; Admin Dose 1 TAB; Start 09/28/18 at 09:00 Quetiapine Fumarate (Seroquel) 25 mg BID GTB Last administered on 09/30/18 08:03; Admin Dose 25 MG; Start 09/27/18 at 12:00 Cefepime HCl 50 ml @ 100 mls/hr Q12 IVPB Last administered on 09/30/18 09:51; Admin Dose 100 MLS/HR; Start 09/27/18 at 21:00 Nystatin (Nystatin Powder) 1 applic BID TOP Last administered on 09/30/18 11:51; Admin Dose 1 APPLIC; Start 09/27/18 at 21:00 Acetaminophen (Tylenol Tab) 650 mg Q4H PRN PO MILD PAIN(1-3)OR ELEVATED TEMP Last administered on 09/28/18 08:03; Admin Dose 650 MG; Start 09/28/18 at 05:00 Sodium Chloride 1,000 ml @ 75 mls/hr [id number] IV Last administered on 09/30/18 13:35; Admin Dose 75 MLS/HR; Start 09/29/18 at 22:30; Stop 10/01/18 at 01:09 Clonazepam (Klonopin) 1 mg TID GTB Last administered on 09/30/18 13:34; Admin Dose 1 MG; Start 09/30/18 at 13:00 ARIEL BLANK Sep 30, 2018 16:45
[2018-09-30 19:30] VITALS: BP 158/96; PULSE 85; RESP 18
[2018-09-30] MEDS: ALBUTEROL/IPRATROPIUM (NEB) 3 ML AMP HHN SCH (20:00)
[2018-09-30] MEDS: SENNA TAB GTB SCH (20:50)
[2018-09-30 21:50] VITALS: BP 138/93; PULSE 74; RESP 19
--- NOTE | 2018-09-30 23:17 | CONS ---
Assessment/Plan Assessment/Plan Hospital Course (Demo Recall) assessment/impression - severe sepsis due to bacteremia and UTI - persistent bacteremia due to Gram negative rods 09/26 and 09/27 - UTI d/t Enterobacter cloacae & Enterobacter cloacae complex. Rojas catheter was changed at [facility] - BPH, has an indwelling Rojas at [facility] - [facility], improving - chronic encephalopathy, talks non-sense only - h/o dysphagia, improved - h/o GT placement but Pt takes pureed diet - h/o fracture of L hip h/o ORIF - h/o surgeries of LLE and L shoulder - intertrigo of groin area - cough, possible aspiration recommendations - pending results: gram negative in blood cultures, susceptibility of Enterobacter in blood culture to cefepime - ordered: resp culture, nasopharyngeal swab for influenza A and B - continue bacteremia-dose of cefepime (09/26/2018-) - continue nystatin to the tinea of the groin BID Management d/w Pt and his RN Consultation Date/Type/Reason Admit Date/Time Sep 27, 2018 at 01:07 Initial Consult Date 09/27/18 Type of Consult ID Requesting Provider: CORBIN GAYTAN Date/Time of Note DATE: 09/30/18 TIME: 23:11 24 HR Interval Summary Free Text/Dictation Pt's encephalopathic and does not answer Q Exam/Review of Systems Exam Vitals Vital Signs Date Temp Pulse Resp B/P (MAP) Pulse Ox O2 O2 Flow FiO2 Time Delivery Rate 09/30/18 97.2 74 19 138/93 97 21:50 (108) 09/30/18 2.0 09:13 09/30/18 Room Air 02:41 09/29/18 27 19:39 Intake and Output 09/29/18 09/29/18 09/30/18 1515:00 23:00 07:00 IntakeIntake Total 650 ml 960 ml 777.5 ml OutputOutput Total 3500 ml 2300 ml BalanceBalance 650 ml -2540 ml -1522.5 ml Constitutional: other (coughing constantly) Psych: confusion Head: normocephalic, atraumatic Eyes: nl conjunctiva, nl lids, nl sclera ENMT: nl external ears & nose, nl nasal mucosa & septum Neck: non-tender Respiratory: crackles/rales Cardiovascular: regular rate and rhythm, nl pulses Gastrointestinal: soft, non-tender; No tender Genitourinary - Male: other (FC) Musculoskeletal: nl extremities to inspection Extremities: normal pulses Skin: No rash or lesions Results Result Diagram: 09/30/1843009/30/18 0431 Results 24hrs Laboratory Tests Test 09/30/18 04:31 09/30/18 07:10 White Blood Count 7.9 # Red Blood Count 3.11 L Hemoglobin 9.4 L Hematocrit 29.4 L Mean Corpuscular Volume 94.5 Mean Corpuscular Hemoglobin 30.2 Mean Corpuscular Hemoglobin Concent 32.0 Red Cell Distribution Width 15.8 H Platelet Count 196 Mean Platelet Volume 10.0 Immature Granulocytes % 0.800 H Neutrophils % 78.5 H Lymphocytes % 9.5 L Monocytes % 9.4 Eosinophils % 1.4 Basophils % 0.4 Nucleated Red Blood Cells % 0.0 Immature Granulocytes # 0.060 H Neutrophils # 6.2 Lymphocytes # 0.8 Monocytes # 0.7 Eosinophils # 0.1 Basophils # 0.0 Nucleated Red Blood Cells # 0.0 Prothrombin Time 14.2 Prothrombin Time Ratio 1.1 INR International Normalized Ratio 1.09 Activated Partial Thromboplast Time 35.4 H Sodium Level 135 Potassium Level 3.8 Chloride Level 103 Carbon Dioxide Level 25 Anion Gap 7 Blood Urea Nitrogen 32 H Creatinine 1.18 Est Glomerular Filtrat Rate mL/min > 60 Glucose Level 95 Uric Acid 7.2 Calcium Level 8.7 Magnesium Level 1.9 Total Bilirubin 0.3 Direct Bilirubin 0.00 Indirect Bilirubin 0.3 Aspartate Amino Transf (AST/SGOT) 29 Alanine Aminotransferase (ALT/SGPT) 49 Alkaline Phosphatase 107 Total Protein 5.5 L Albumin 2.8 L Globulin 2.70 Albumin/Globulin Ratio 1.03 Lab Scanned Report REFERENCE LAB Medications Medication Current Medications Enoxaparin Sodium (Lovenox) 30 mg DAILY SC Last administered on 09/30/18at 08:02; Admin Dose 30 MG; Start 09/27/18 at 09:00 Ondansetron HCl (Zofran Inj) 4 mg Q6H PRN IV NAUSEA AND/OR VOMITING; Start 09/27/18 at 03:00 Docusate Sodium (Colace Liquid Cup) 50 mg DAILY GTB Last administered on 09/30/18at 08:02; Admin Dose 50 MG; Start 09/28/18 at 09:00 Famotidine (Pepcid) 20 mg BID GTB Last administered on 09/30/18 20:50; Admin Dose 20 MG; Start 09/27/18 at 21:00 Folic Acid (Folic Acid) 1 mg DAILY GTB Last administered on 09/30/18 08:06; Admin Dose 1 MG; Start 09/28/18 at 09:00 Metoprolol Tartrate (Lopressor) 50 mg BID GTB Last administered on 09/30/18 20:50; Admin Dose 50 MG; Start 09/27/18 at 12:00 Senna (Senokot) 1 tab QHS GTB Last administered on 09/30/18 20:50; Admin Dose 1 TAB; Start 09/27/18 at 21:00 Multivitamins/ Minerals (Theragran-M) 1 tab DAILY GTB Last administered on 09/30/18 08:06; Admin Dose 1 TAB; Start 09/28/18 at 09:00 Quetiapine Fumarate (Seroquel) 25 mg BID GTB Last administered on 09/30/18 20:50; Admin Dose 25 MG; Start 09/27/18 at 12:00 Cefepime HCl 50 ml @ 100 mls/hr Q12 IVPB Last administered on 09/30/18 20:48; Admin Dose 100 MLS/HR; Start 09/27/18 at 21:00 Nystatin (Nystatin Powder) 1 applic BID TOP Last administered on 09/30/18 20:49; Admin Dose 1 APPLIC; Start 09/27/18 at 21:00 Acetaminophen (Tylenol Tab) 650 mg Q4H PRN PO MILD PAIN(1-3)OR ELEVATED TEMP Last administered on 09/28/18 08:03; Admin Dose 650 MG; Start 09/28/18 at 05:00 Sodium Chloride 1,000 ml @ 75 mls/hr [id number] IV Last administered on 09/30/18 13:35; Admin Dose 75 MLS/HR; Start 09/29/18 at 22:30; Stop 10/01/18 at 01:09 Clonazepam (Klonopin) 1 mg TID GTB Last administered on 09/30/18 20:50; Admin Dose 1 MG; Start 7/22/19 at 13:00 Albuterol/ Ipratropium (Duoneb) 3 ml Q6HWA RESP THERAPY N ; Start 09/30/18 at 20:00 DEWAYNE DOUGLAS M.D. Sep 30, 2018 23:17
--- NOTE | 2018-09-30 23:20 | CONS ---
Assessment/Plan Assessment/Plan Hospital Course (Demo Recall) assessment/impression - severe sepsis due to bacteremia and UTI - persistent bacteremia due to Gram negative rods 09/26 and 09/27 - UTI d/t Enterobacter cloacae & Enterobacter cloacae complex. Rojas catheter was changed at [facility] - [facility]PH, has an indwelling Rojas at [facility] - [facility], improving - chronic encephalopathy, talks non-sense only - h/o dysphagia, improved - h/o GT placement but Pt takes pureed diet - h/o fracture of L hip h/o ORIF - h/o surgeries of LLE and L shoulder - intertrigo of groin area - cough, possible aspiration recommendations - pending results: gram negative in blood cultures, susceptibility of Enterobacter in blood culture to cefepime - ordered: resp culture, CXR, nasopharyngeal swab for respiratory viruses - continue bacteremia-dose of cefepime (09/26/2018-) - continue nystatin to the tinea of the groin BID - I recommend speech pathology eval because I am concerned that Pt might be aspirating Management d/w Pt and his RN Consultation Date/Type/Reason Admit Date/Time Sep 27, 2018 at 01:07 Initial Consult Date 09/27/18 Type of Consult ID Requesting Provider: CORBIN GAYTAN Date/Time of Note DATE: 09/30/18 TIME: 23:19 Exam/Review of Systems Exam Vitals Vital Signs Date Temp Pulse Resp B/P (MAP) Pulse Ox O2 O2 Flow FiO2 Time Delivery Rate 09/30/18 97.2 74 19 138/93 97 21:50 (108) 09/30/18 2.0 09:13 09/30/18 Room Air 02:41 09/29/18 27 19:39 Intake and Output 09/29/18 09/29/18 09/30/18 1515:00 23:00 07:00 IntakeIntake Total 650 ml 960 ml 777.5 ml OutputOutput Total 3500 ml 2300 ml BalanceBalance 650 ml -2540 ml -1522.5 ml Results Result Diagram: 09/30/18 0431 09/30/18 0431 Results 24hrs Laboratory Tests Test 09/30/18 04:31 09/30/18 07:10 White Blood Count 7.9 # Red Blood Count 3.11 L Hemoglobin 9.4 L Hematocrit 29.4 L Mean Corpuscular Volume 94.5 Mean Corpuscular Hemoglobin 30.2 Mean Corpuscular Hemoglobin Concent 32.0 Red Cell Distribution Width 15.8 H Platelet Count 196 Mean Platelet Volume 10.0 Immature Granulocytes % 0.800 H Neutrophils % 78.5 H Lymphocytes % 9.5 L Monocytes % 9.4 Eosinophils % 1.4 Basophils % 0.4 Nucleated Red Blood Cells % 0.0 Immature Granulocytes # 0.060 H Neutrophils # 6.2 Lymphocytes # 0.8 Monocytes # 0.7 Eosinophils # 0.1 Basophils # 0.0 Nucleated Red Blood Cells # 0.0 Prothrombin Time 14.2 Prothrombin Time Ratio 1.1 INR International Normalized Ratio 1.09 Activated Partial Thromboplast Time 35.4 H Sodium Level 135 Potassium Level 3.8 Chloride Level 103 Carbon Dioxide Level 25 Anion Gap 7 Blood Urea Nitrogen 32 H Creatinine 1.18 Est Glomerular Filtrat Rate mL/min > 60 Glucose Level 95 Uric Acid 7.2 Calcium Level 8.7 Magnesium Level 1.9 Total Bilirubin 0.3 Direct Bilirubin 0.00 Indirect Bilirubin 0.3 Aspartate Amino Transf (AST/SGOT) 29 Alanine Aminotransferase (ALT/SGPT) 49 Alkaline Phosphatase 107 Total Protein 5.5 L Albumin 2.8 L Globulin 2.70 Albumin/Globulin Ratio 1.03 Lab Scanned Report REFERENCE LAB Medications Medication Current Medications Enoxaparin Sodium (Lovenox) 30 mg DAILY SC Last administered on 09/30/18 08:02; Admin Dose 30 MG; Start 09/27/18 at 09:00 Ondansetron HCl (Zofran Inj) 4 mg Q6H PRN IV NAUSEA AND/OR VOMITING; Start 09/27/18 at 03:00 Docusate Sodium (Colace Liquid Cup) 50 mg DAILY GTB Last administered on 09/30/18 08:02; Admin Dose 50 MG; Start 09/28/18 at 09:00 Famotidine (Pepcid) 20 mg BID GTB Last administered on 09/30/18 20:50; Admin Dose 20 MG; Start 09/27/18 at 21:00 Folic Acid (Folic Acid) 1 mg DAILY GTB Last administered on 09/30/18 08:06; Admin Dose 1 MG; Start 09/28/18 at 09:00 Metoprolol Tartrate (Lopressor) 50 mg BID GTB Last administered on 09/30/18 20:50; Admin Dose 50 MG; Start 09/27/18 at 12:00 Senna (Senokot) 1 tab QHS GTB Last administered on 09/30/18 20:50; Admin Dose 1 TAB; Start 09/27/18 at 21:00 Multivitamins/ Minerals (Theragran-M) 1 tab DAILY GTB Last administered on 09/30/18 08:06; Admin Dose 1 TAB; Start 09/28/18 at 09:00 Quetiapine Fumarate (Seroquel) 25 mg BID GTB Last administered on 09/30/18 20:50; Admin Dose 25 MG; Start 09/27/18 at 12:00 Cefepime HCl 50 ml @ 100 mls/hr Q12 IVPB Last administered on 09/30/18 20:48; Admin Dose 100 MLS/HR; Start 09/27/18 at 21:00 Nystatin (Nystatin Powder) 1 applic BID TOP Last administered on 09/30/18 20:49; Admin Dose 1 APPLIC; Start 09/27/18 at 21:00 Acetaminophen (Tylenol Tab) 650 mg Q4H PRN PO MILD PAIN(1-3)OR ELEVATED TEMP Last administered on 09/28/18 08:03; Admin Dose 650 MG; Start 09/28/18 at 05:00 Sodium Chloride 1,000 ml @ 75 mls/hr [id number] IV Last administered on 09/30/18 13:35; Admin Dose 75 MLS/HR; Start 09/29/18 at 22:30; Stop 10/01/18 at 01:09 Clonazepam (Klonopin) 1 mg TID GTB Last administered on 09/30/18 20:50; Admin Dose 1 MG; Start 09/30/18 at 13:00 Albuterol/ Ipratropium (Duoneb) 3 ml Q6HWA RESP THERAPY HHN ; Start 09/30/18 at 20:00 DEWAYNE DOUGLAS M.D. Sep 30, 2018 23:20
[2018-10-01 02:00] VITALS: BP 133/90; PULSE 74; RESP 20
[2018-10-01 07:47] VITALS: BP 146/91; PULSE 78; RESP 20
[2018-10-01] MEDS: QUETIAPINE 25 MG TAB GTB SCH ×2 (08:43→20:07)
[2018-10-01] MEDS: DOCUSATE SODIUM 10 MG/ML (10ML CUP) GTB SCH (08:43)
[2018-10-01] MEDS: FAMOTIDINE 20 MG TAB GTB SCH ×2 (08:43→20:07)
[2018-10-01] MEDS: MULTIVITAMINS/MINERALS TAB GTB SCH (08:43)
[2018-10-01] MEDS: METOPROLOL 50 MG TAB GTB SCH ×2 (08:44→20:07)
[2018-10-01] MEDS: FOLIC ACID 1 MG TAB GTB SCH (08:44)
[2018-10-01] MEDS: clonAZEPAM 0.5 MG TAB GTB SCH ×3 (08:44→20:07)
[2018-10-01] MEDS: ENOXAPARIN 30 MG/0.3 ML SYG SC SCH (08:49)
[2018-10-01] MEDS: CEFEPIME 2GM/50 ML (PMX) 50 ML IVPB SCH ×2 (08:52→20:05)
[2018-10-01] MEDS: NYSTATIN 30 GM POWDER BTL TOP SCH ×2 (08:53→20:08)
--- NOTE | 2018-10-01 09:50 | CONS ---
Assessment/Plan Assessment/Plan Assessment/Plan (Daily) 1. acute kidney injury due to ATN from UTI and Prerenal azotemia 2. SIRS due to UTI and bacteremia 3. Bacteremia with Blood Cx growing Enterobacter 4. H/o BPH with Urinary obstruction ,chronic indwelling curry catheter 5. H/o Chronic encephalopathy 6. H/o SChizophrenia 7. H/o G tube placement 8. H/o Fracture of left hip s/p ORIF Plan: BUN/Cr 07/04.12, other electrolytes stable , BUN/Cr improving wiht IVF hydration, BP stable, s/p 2 liter IVF NS-Finishing today , Losartan has been stopped due to MANAS - if Cr remains stable by tomorrow then we will resume losartan [id number] mg PO daily Continue MTP 50mg PO BID for BP control, will use IV hydralazine for BP control Gold bx cefepie for Enterobacter bacteremia ,Renally dose all abx and monitor electrolytes will follow up Consultation Date/Type/Reason Admit Date/Time Sep 27, 2018 at 01:07 Initial Consult Date 09/27/18 Type of Consult NEPHROLOGY Requesting Provider: CORBIN GAYTAN Date/Time of Note DATE: 10/01/18 TIME: 09:46 24 HR Interval Summary Free Text/Dictation BUN/Cr improving wiht IVF hydration, BP stable, s/p 2 liter IVF NS, Losartan has been stopped due to MANAS Exam/Review of Systems Exam Vitals Vital Signs Date Temp Pulse Resp B/P (MAP) Pulse Ox O2 O2 Flow FiO2 Time Delivery Rate 10/01/18 97.9 78 20 146/91 98 07:47 (109) 09/30/18 2.0 09:13 09/30/18 Room Air 02:41 09/29/18 27 19:39 Intake and Output 09/30/18 09/30/18 10/01/18 1515:00 23:00 07:00 IntakeIntake Total 712.5 ml 650 ml OutputOutput Total 3150 ml 2600 ml BalanceBalance -2437.5 ml -1950 ml Exam Constitutional: awake Head: normocephalic, atraumatic Respiratory: clear to auscultation, normal air movement Cardiovascular: regular rate and rhythm, nl pulses; Gastrointestinal: soft, non-tender, other (GT); No distended, No tender Genitourinary - Male: other (FC) Musculoskeletal: other (L hip and LLE have well healed surgical scars) Extremities: No edema Neurological: Non focal Results Result Diagram: 10/01/185 10/01/185 Results 24hrs Laboratory Tests Test 10/01/18 04:55 White Blood Count 9.0 Red Blood Count 3.53 L Hemoglobin 10.6 L Hematocrit 33.8 L Mean Corpuscular Volume 95.8 Mean Corpuscular Hemoglobin 30.0 Mean Corpuscular Hemoglobin Concent 31.4 L Red Cell Distribution Width 15.9 H Platelet Count 216 Mean Platelet Volume 9.7 Immature Granulocytes % 0.900 H Neutrophils % 80.5 H Lymphocytes % 9.4 L Monocytes % 8.1 Eosinophils % 0.9 Basophils % 0.2 Nucleated Red Blood Cells % 0.0 Immature Granulocytes # 0.080 H Neutrophils # 7.3 Lymphocytes # 0.9 Monocytes # 0.7 Eosinophils # 0.1 Basophils # 0.0 Nucleated Red Blood Cells # 0.0 Sodium Level 140 Potassium Level 4.1 Chloride Level 106 Carbon Dioxide Level 27 Anion Gap 7 Blood Urea Nitrogen 27 H Creatinine 1.12 Est Glomerular Filtrat Rate mL/min > 60 Glucose Level 99 Calcium Level 9.0 Medications Medication Current Medications Enoxaparin Sodium (Lovenox) 30 mg DAILY SC Last administered on 10/01/18at 08:49; Admin Dose 30 MG; Start 09/27/18 at 09:00 Ondansetron HCl (Zofran Inj) 4 mg Q6H PRN IV NAUSEA AND/OR VOMITING; Start 09/27/18 at 03:00 Docusate Sodium (Colace Liquid Cup) 50 mg DAILY GTB Last administered on 10/01/18at 08:43; Admin Dose 50 MG; Start 09/28/18 at 09:00 Famotidine (Pepcid) 20 mg BID GTB Last administered on 10/01/18 08:43; Admin Dose 20 MG; Start 09/27/18 at 21:00 Folic Acid (Folic Acid) 1 mg DAILY GTB Last administered on 10/01/18 08:44; Admin Dose 1 MG; Start 09/28/18 at 09:00 Metoprolol Tartrate (Lopressor) 50 mg BID GTB Last administered on 10/01/18 08:44; Admin Dose 50 MG; Start 09/27/18 at 12:00 Senna (Senokot) 1 tab QHS GTB Last administered on 09/30/18 20:50; Admin Dose 1 TAB; Start 09/27/18 at 21:00 Multivitamins/ Minerals (Theragran-M) 1 tab DAILY GTB Last administered on 10/01/18 08:43; Admin Dose 1 TAB; Start 09/28/18 at 09:00 Quetiapine Fumarate (Seroquel) 25 mg BID GTB Last administered on 10/01/18 08:43; Admin Dose 25 MG; Start 09/27/18 at 12:00 Cefepime HCl 50 ml @ 100 mls/hr Q12 IVPB Last administered on 10/01/18 08:52; Admin Dose 100 MLS/HR; Start 09/27/18 at 21:00 Nystatin (Nystatin Powder) 1 applic BID TOP Last administered on 10/01/18 08:53; Admin Dose 1 APPLIC; Start 09/27/18 at 21:00 Acetaminophen (Tylenol Tab) 650 mg Q4H PRN PO MILD PAIN(1-3)OR ELEVATED TEMP Last administered on 09/28/18 08:03; Admin Dose 650 MG; Start 09/28/18 at 05:00 Clonazepam (Klonopin) 1 mg TID GTB Last administered on 10/01/18 08:44; Admin Dose 1 MG; Start 09/30/18 at 13:00 Albuterol/ Ipratropium (Duoneb) 3 ml Q6HWA RESP THERAPY HHN ; Start 09/30/18 at 20:00 MARCOS MOODY MD Oct 01, 2018 09:50
[2018-10-01] MEDS: ALBUTEROL/IPRATROPIUM (NEB) 3 ML AMP HHN SCH ×3 (11:14→20:31)
[2018-10-01 14:00] VITALS: BP 131/88; PULSE 96; RESP 20
--- NOTE | 2018-10-01 17:29 | CONS ---
Assessment/Plan Assessment/Plan Hospital Course (Demo Recall) assessment/impression - severe sepsis due to bacteremia and UTI - persistent bacteremia due to enterobacter 09/26 and 09/27, latest blood cultures on 09/29/2018 are negative - UTI due to enterbacter. Rojas catheter was changed at [facility] - BPH, has an indwelling Rojas at [facility], improving - chronic encephalopathy, talks non-sense only - h/o dysphagia, improved - h/o GT placement but Pt takes pureed diet - h/o fracture of L hip h/o ORIF - h/o surgeries of LLE and L shoulder - intertrigo of groin area - cough, possible aspiration. CXR on 10/01/2018 showed atelectasis vs minimal infiltrate at the periphery of JUSTINO recommendations - pending results: respiratory virus panel - continue cefepime (09/26/2018-) x 2 weeks after the first negative blood culture i.el from 09/29/2018 to 10/13/2018 - continue nystatin to the tinea of the groin Consultation Date/Type/Reason Admit Date/Time Sep 27, 2018 at 01:07 Initial Consult Date 09/27/18 Type of Consult ID Requesting Provider: CORBIN GAYTAN Date/Time of Note DATE: 10/01/18 TIME: 17:21 24 HR Interval Summary Subjective hx not possible: pt non-verbal (confused) Exam/Review of Systems Exam Vitals Vital Signs Date Temp Pulse Resp B/P (MAP) Pulse Ox O2 O2 Flow FiO2 Time Delivery Rate 10/01/18 96 18 98 21 14:22 10/01/18 99.4 131/88 14:00 (102) 09/30/18 2.0 09:13 09/30/18 Room Air 02:41 Intake and Output 09/30/18 09/30/18 10/01/18 1515:00 23:00 07:00 IntakeIntake Total 712.5 ml 650 ml OutputOutput Total 3150 ml 2600 ml BalanceBalance -2437.5 ml -1950 ml Constitutional: non-verbal (confused, speaking non-sense) Psych: other (speaking non-sense) Head: normocephalic, atraumatic Eyes: nl conjunctiva, nl lids ENMT: nl external ears & nose, nl nasal mucosa & septum, mucosa pink and moist Neck: non-tender Respiratory: diminished breath sounds Cardiovascular: regular rate and rhythm, nl pulses, edema Gastrointestinal: soft, non-tender Musculoskeletal: nl extremities to inspection Extremities: edema Neurological: other (confused) Skin: nl turgor Results Result Diagram: 10/01/185 10/01/185 Results 24hrs Laboratory Tests Test 10/01/18 04:55 White Blood Count 9.0 Red Blood Count 3.53 L Hemoglobin 10.6 L Hematocrit 33.8 L Mean Corpuscular Volume 95.8 Mean Corpuscular Hemoglobin 30.0 Mean Corpuscular Hemoglobin Concent 31.4 L Red Cell Distribution Width 15.9 H Platelet Count 216 Mean Platelet Volume 9.7 Immature Granulocytes % 0.900 H Neutrophils % 80.5 H Lymphocytes % 9.4 L Monocytes % 8.1 Eosinophils % 0.9 Basophils % 0.2 Nucleated Red Blood Cells % 0.0 Immature Granulocytes # 0.080 H Neutrophils # 7.3 Lymphocytes # 0.9 Monocytes # 0.7 Eosinophils # 0.1 Basophils # 0.0 Nucleated Red Blood Cells # 0.0 Sodium Level 140 Potassium Level 4.1 Chloride Level 106 Carbon Dioxide Level 27 Anion Gap 7 Blood Urea Nitrogen 27 H Creatinine 1.12 Est Glomerular Filtrat Rate mL/min > 60 Glucose Level 99 Calcium Level 9.0 Medications Medication Current Medications Enoxaparin Sodium (Lovenox) 30 mg DAILY SC Last administered on 10/01/18at 08:49; Admin Dose 30 MG; Start 09/27/18 at 09:00 Ondansetron HCl (Zofran Inj) 4 mg Q6H PRN IV NAUSEA AND/OR VOMITING; Start 09/27/18 at 03:00 Docusate Sodium (Colace Liquid Cup) 50 mg DAILY GTB Last administered on 10/01/18at 08:43; Admin Dose 50 MG; Start 09/28/18 at 09:00 Famotidine (Pepcid) 20 mg BID GTB Last administered on 10/01/18at 08:43; Admin Dose 20 MG; Start 09/27/18 at 21:00 Folic Acid (Folic Acid) 1 mg DAILY GTB Last administered on 10/01/18at 08:44; Admin Dose 1 MG; Start 09/28/18 at 09:00 Metoprolol Tartrate (Lopressor) 50 mg BID GTB Last administered on 10/01/18 0 8:44; Admin Dose 50 MG; Start 09/27/18 at 12:00 Senna (Senokot) 1 tab QHS GTB Last administered on 09/30/18 20:50; Admin Dose 1 TAB; Start 09/27/18 at 21:00 Multivitamins/ Minerals (Theragran-M) 1 tab DAILY GTB Last administered on 10/01/18 08:43; Admin Dose 1 TAB; Start 09/28/18 at 09:00 Quetiapine Fumarate (Seroquel) 25 mg BID GTB Last administered on 10/01/18 08:43; Admin Dose 25 MG; Start 09/27/18 at 12:00 Cefepime HCl 50 ml @ 100 mls/hr Q12 IVPB Last administered on 10/01/18 08:52; Admin Dose 100 MLS/HR; Start 09/27/18 at 21:00 Nystatin (Nystatin Powder) 1 applic BID TOP Last administered on 10/01/18 08:53; Admin Dose 1 APPLIC; Start 09/27/18 at 21:00 Acetaminophen (Tylenol Tab) 650 mg Q4H PRN PO MILD PAIN(1-3)OR ELEVATED TEMP Last administered on 09/28/18 08:03; Admin Dose 650 MG; Start 09/28/18 at 05:00 Clonazepam (Klonopin) 1 mg TID GTB Last administered on 10/01/18 12:44; Admin Dose 1 MG; Start 09/30/18 at 13:00 Albuterol/ Ipratropium (Duoneb) 3 ml Q6HWA RESP THERAPY HHN Last administered on 10/01/18 14:21; Admin Dose 3 ML; Start 09/30/18 at 20:00 DEWAYNE DOUGLAS M.D. Oct 01, 2018 17:29
--- NOTE | 2018-10-01 18:09 | PN ---
Date/Time of Note Date/Time of Note DATE: 10/01/18 TIME: 18:08 Assessment/Plan VTE Prophylaxis Risk score (from Ns)>0 risk: 5 SCD applied (from [facility] [place] No SCD contraindicated: patient refusal Pharmacological prophylaxis: LMWH Lines/Catheters IV [facility]ter Type (from [facility]): Peripheral IV Central line still needed: Yes Urinary Cath still in place: Yes Reason Cath still needed: urinary retention Assessment/Plan Hospital Course Patient remains hemodynamically stable, afebrile, continued on cefepime for urinary tract infection and bacteremia. Assessment/Plan -Sepsis with gram-negative rods bacteremia secondary to urinary tract infection, continue antibiotics per ID. Dr. Maya is following in infection disease consultation. -Acute kidney injury and hyponatremia secondary to dehydration, resolving. Continue IV fluids. -GERD -Dyslipidemia -BPH -Chronic encephalopathy -Schizophrenia -Dysphagia with G-tube, patient is currently able to tolerate diet -Rojas catheter present on admission -History of fracture of left tibia and fibula Further recommendations based on clinical course. Plan of care discussed with Dr. Shafer. Result Diagram: 10/01/18 0455 10/01/18 0455 Results 24hrs Laboratory Tests Test 10/01/18 04:55 White Blood Count 9.0 Red Blood Count 3.53 L Hemoglobin 10.6 L Hematocrit 33.8 L Mean Corpuscular Volume 95.8 Mean Corpuscular Hemoglobin 30.0 Mean Corpuscular Hemoglobin Concent 31.4 L Red Cell Distribution Width 15.9 H Platelet Count 216 Mean Platelet Volume 9.7 Immature Granulocytes % 0.900 H Neutrophils % 80.5 H Lymphocytes % 9.4 L Monocytes % 8.1 Eosinophils % 0.9 Basophils % 0.2 Nucleated Red Blood Cells % 0.0 Immature Granulocytes # 0.080 H Neutrophils # 7.3 Lymphocytes # 0.9 Monocytes # 0.7 Eosinophils # 0.1 Basophils # 0.0 Nucleated Red Blood Cells # 0.0 Sodium Level 140 Potassium Level 4.1 Chloride Level 106 Carbon Dioxide Level 27 Anion Gap 7 Blood Urea Nitrogen 27 H Creatinine 1.12 Est Glomerular Filtrat Rate mL/min > 60 Glucose Level 99 Calcium Level 9.0 Exam/Review of Systems Exam Vitals Vital Signs Date Temp Pulse Resp B/P (MAP) Pulse Ox O2 O2 Flow FiO2 Time Delivery Rate 10/01/18 96 18 98 21 14:22 10/01/18 99.4 131/88 14:00 (102) 09/30/18 2.0 09:13 09/30/18 Room Air 02:41 Intake and Output 09/30/18 09/30/18 10/01/18 1515:00 23:00 07:00 IntakeIntake Total 712.5 ml 650 ml OutputOutput Total 3150 ml 2600 ml BalanceBalance -2437.5 ml -1950 ml Exam Constitutional: alert Head: normocephalic Respiratory: clear to auscultation Cardiovascular: nl pulses Gastrointestinal: soft, non-tender, other (G-tube) Genitourinary - Male: other (Rojas catheter) Musculoskeletal: nl extremities to inspection Neurological: confused Results Results 24hrs Laboratory Tests Test 10/01/18 04:55 White Blood Count 9.0 Red Blood Count 3.53 L Hemoglobin 10.6 L Hematocrit 33.8 L Mean Corpuscular Volume 95.8 Mean Corpuscular Hemoglobin 30.0 Mean Corpuscular Hemoglobin Concent 31.4 L Red Cell Distribution Width 15.9 H Platelet Count 216 Mean Platelet Volume 9.7 Immature Granulocytes % 0.900 H Neutrophils % 80.5 H Lymphocytes % 9.4 L Monocytes % 8.1 Eosinophils % 0.9 Basophils % 0.2 Nucleated Red Blood Cells % 0.0 Immature Granulocytes # 0.080 H Neutrophils # 7.3 Lymphocytes # 0.9 Monocytes # 0.7 Eosinophils # 0.1 Basophils # 0.0 Nucleated Red Blood Cells # 0.0 Sodium Level 140 Potassium Level 4.1 Chloride Level 106 Carbon Dioxide Level 27 Anion Gap 7 Blood Urea Nitrogen 27 H Creatinine 1.12 Est Glomerular Filtrat Rate mL/min > 60 Glucose Level 99 Calcium Level 9.0 Medications Medication Current Medications Enoxaparin Sodium (Lovenox) 30 mg DAILY SC Last administered on 10/01/18at 08:49; Admin Dose 30 MG; Start 09/27/18 at 09:00 Ondansetron HCl (Zofran Inj) 4 mg Q6H PRN IV NAUSEA AND/OR VOMITING; Start 09/27/18 at 03:00 Docusate Sodium (Colace Liquid Cup) 50 mg DAILY GTB Last administered on 10/01/18at 08:43; Admin Dose 50 MG; Start 09/28/18 at 09:00 Famotidine (Pepcid) 20 mg BID GTB Last administered on 10/01/18 08:43; Admin Dose 20 MG; Start 09/27/18 at 21:00 Folic Acid (Folic Acid) 1 mg DAILY GTB Last administered on 10/01/18 08:44; Admin Dose 1 MG; Start 09/28/18 at 09:00 Metoprolol Tartrate (Lopressor) 50 mg BID GTB Last administered on 10/01/18 08:44; Admin Dose 50 MG; Start 09/27/18 at 12:00 Senna (Senokot) 1 tab QHS GTB Last administered on 09/30/18 20:50; Admin Dose 1 TAB; Start 09/27/18 at 21:00 Multivitamins/ Minerals (Theragran-M) 1 tab DAILY GTB Last administered on 10/01/18 08:43; Admin Dose 1 TAB; Start 09/28/18 at 09:00 Quetiapine Fumarate (Seroquel) 25 mg BID GTB Last administered on 10/01/18 08:43; Admin Dose 25 MG; Start 09/27/18 at 12:00 Cefepime HCl 50 ml @ 100 mls/hr Q12 IVPB Last administered on 10/01/18 08:52; Admin Dose 100 MLS/HR; Start 09/27/18 at 21:00 Nystatin (Nystatin Powder) 1 applic BID TOP Last administered on 10/01/18 08:53; Admin Dose 1 APPLIC; Start 09/27/18 at 21:00 Acetaminophen (Tylenol Tab) 650 mg Q4H PRN PO MILD PAIN(1-3)OR ELEVATED TEMP Last administered on 09/28/18 08:03; Admin Dose 650 MG; Start 09/28/18 at 05:00 Clonazepam (Klonopin) 1 mg TID GTB Last administered on 10/01/18 12:44; Admin Dose 1 MG; Start 09/30/18 at 13:00 Albuterol/ Ipratropium (Duoneb) 3 ml Q6HWA RESP THERAPY HHN Last administered on 10/01/18 14:21; Admin Dose 3 ML; Start 09/30/18 at 20:00 ARIEL BLANK Oct 01, 2018 18:09
[2018-10-01 19:56] VITALS: BP 129/79; PULSE 94; RESP 17
[2018-10-01] MEDS: SENNA TAB GTB SCH (20:06)
[2018-10-02 01:42] VITALS: BP 145/90; PULSE 92; RESP 17
[2018-10-02 07:50] VITALS: BP 137/90; PULSE 87; RESP 18
[2018-10-02] MEDS: ALBUTEROL/IPRATROPIUM (NEB) 3 ML AMP HHN SCH ×3 (08:07→21:14)
[2018-10-02] MEDS: METOPROLOL 50 MG TAB GTB SCH (08:49)
[2018-10-02] MEDS: clonAZEPAM 0.5 MG TAB GTB SCH ×2 (08:50→13:28)
[2018-10-02] MEDS: MULTIVITAMINS/MINERALS TAB GTB SCH (08:50)
[2018-10-02] MEDS: DOCUSATE SODIUM 10 MG/ML (10ML CUP) GTB SCH (08:50)
[2018-10-02] MEDS: FAMOTIDINE 20 MG TAB GTB SCH (08:50)
[2018-10-02] MEDS: FOLIC ACID 1 MG TAB GTB SCH (08:50)
[2018-10-02] MEDS: QUETIAPINE 25 MG TAB GTB SCH (08:50)
[2018-10-02] MEDS: ENOXAPARIN 30 MG/0.3 ML SYG SC SCH (08:51)
[2018-10-02] MEDS: NYSTATIN 30 GM POWDER BTL TOP SCH ×2 (08:56→21:51)
[2018-10-02] MEDS: CEFEPIME 2GM/50 ML (PMX) 50 ML IVPB SCH ×2 (08:57→21:50)
--- NOTE | 2018-10-02 13:11 | CONS ---
Assessment/Plan Assessment/Plan Assessment/Plan (Daily) 1. acute kidney injury due to ATN from UTI and Prerenal azotemia 2. SIRS due to UTI and bacteremia 3. Bacteremia with Blood Cx growing Enterobacter 4. H/o BPH with Urinary obstruction ,chronic indwelling curry catheter 5. H/o Chronic encephalopathy 6. H/o SChizophrenia 7. H/o G tube placement 8. H/o Fracture of left hip s/p ORIF Plan: BUN/Cr 27/1.12, other electrolytes stable , BUN/Cr improving wiht IVF hydration, BP stable, s/p 2 liter IVF NS Cr stable, will start Losartan 12.5 mg po daily Continue MTP 50mg PO BID for BP control, will use IV hydralazine for BP control Gold bx cefepie for Enterobacter bacteremia ,Renally dose all abx and monitor electrolytes will follow up Consultation Date/Type/Reason Admit Date/Time Sep 27, 2018 at 01:07 Initial Consult Date 09/27/18 Type of Consult NEPHROLOGY Requesting Provider: CORBIN GAYTAN Date/Time of Note DATE: 10/02/18 TIME: 13:11 Exam/Review of Systems Exam Vitals Vital Signs Date Temp Pulse Resp B/P (MAP) Pulse Ox O2 O2 Flow FiO2 Time Delivery Rate 10/02/18 87 18 98 21 08:09 10/02/18 97.8 137/90 Room Air 07:50 (106) 09/30/18 2.0 09:13 Intake and Output 10/01/18 10/01/18 10/02/18 1515:00 23:00 07:00 IntakeIntake Total 1210 ml 980 ml 500 ml OutputOutput Total 3800 ml 900 ml 2000 ml BalanceBalance -2590 ml 80 ml -1500 ml Exam Constitutional: awake Head: normocephalic, atraumatic Respiratory: clear to auscultation, normal air movement Cardiovascular: regular rate and rhythm, nl pulses; Gastrointestinal: soft, non-tender, other (GT); No distended, No tender Genitourinary - Male: other (FC) Musculoskeletal: other (L hip and LLE have well healed surgical scars) Extremities: No edema Neurological: Non focal Results Result Diagram: 10/01/18 0455 10/01/18 0455 Medications Medication Current Medications Enoxaparin Sodium (Lovenox) 30 mg DAILY SC Last administered on 10/02/18 08:51; Admin Dose 30 MG; Start 09/27/18 at 09:00 Ondansetron HCl (Zofran Inj) 4 mg Q6H PRN IV NAUSEA AND/OR VOMITING; Start 09/27/18 at 03:00 Docusate Sodium (Colace Liquid Cup) 50 mg DAILY GTB Last administered on 08:50; Admin Dose 50 MG; Start 09/28/18 at 09:00 Famotidine (Pepcid) 20 mg BID GTB Last administered on 10/02/18 08:50; Admin Dose 20 MG; Start 09/27/18 at 21:00 Folic Acid (Folic Acid) 1 mg DAILY GTB Last administered on 10/02/18 08:50; Admin Dose 1 MG; Start 09/28/18 at 09:00 Metoprolol Tartrate (Lopressor) 50 mg BID GTB Last administered on 10/02/18 08:49; Admin Dose 50 MG; Start 09/27/18 at 12:00 Senna (Senokot) 1 tab QHS GTB Last administered on 10/01/18 20:06; Admin Dose 1 TAB; Start 09/27/18 at 21:00 Multivitamins/ Minerals (Theragran-M) 1 tab DAILY GTB Last administered on 10/02/18 08:50; Admin Dose 1 TAB; Start 09/28/18 at 09:00 Quetiapine Fumarate (Seroquel) 25 mg BID GTB Last administered on 10/02/18 08:50; Admin Dose 25 MG; Start 09/27/18 at 12:00 Cefepime HCl 50 ml @ 100 mls/hr Q12 IVPB Last administered on 10/02/18 08:57; Admin Dose 100 MLS/HR; Start 09/27/18 at 21:00 Nystatin (Nystatin Powder) 1 applic BID TOP Last administered on 10/02/18 08:56; Admin Dose 1 APPLIC; Start 09/27/18 at 21:00 Acetaminophen (Tylenol Tab) 650 mg Q4H PRN PO MILD PAIN(1-3)OR ELEVATED TEMP Last administered on 09/28/18 08:03; Admin Dose 650 MG; Start 09/28/18 at 05:00 Clonazepam (Klonopin) 1 mg TID GTB Last administered on 10/02/18 08:50; Admin Dose 1 MG; Start 09/30/18 at 13:00 Albuterol/ Ipratropium (Duoneb) 3 ml Q6HWA RESP THERAPY HHN Last administered on 10/02/18 08:07; Admin Dose 3 ML; Start 09/30/18 at 20:00 MARCOS MOODY MD Oct 02, 2018 13:11
[2018-10-02 13:59] VITALS: BP 131/86; PULSE 94; RESP 18
--- NOTE | 2018-10-02 17:20 | CONS ---
Assessment/Plan Assessment/Plan Hospital Course (Demo Recall) assessment/impression - s/p severe sepsis due to bacteremia and UTI, improved - s/p persistent bacteremia due to enterobacter 09/26 and 09/27, latest blood cultures on 09/29/2018 are negative - s/p UTI due to enterbacter. Rojas catheter was changed at [facility] - BPH, has an indwelling Rojas at [facility], improved - chronic encephalopathy, talks non-sense only - h/o dysphagia, improved - h/o GT placement but Pt takes pureed diet - h/o fracture of L hip h/o ORIF - h/o surgeries of LLE and L shoulder - intertrigo of groin area - cough, possible aspiration. CXR on 10/01/2018 showed atelectasis vs minimal infiltrate at the periphery of JUSTINO. Improved recommendations - pending results: respiratory virus panel - continue cefepime (09/26/2018-) x 2 weeks after the first negative blood culture i.el from 09/29/2018 to 10/13/2018 - continue nystatin to the tinea of the groin Consultation Date/Type/Reason Admit Date/Time Sep 27, 2018 at 01:07 Initial Consult Date 09/27/18 Type of Consult ID Requesting Provider: CORBIN GAYTAN Date/Time of Note DATE: 10/02/18 TIME: 17:18 24 HR Interval Summary Subjective hx not possible: pt non-verbal (confused and is talking non-sense) Exam/Review of Systems Exam Vitals Vital Signs Date Temp Pulse Resp B/P (MAP) Pulse Ox O2 O2 Flow FiO2 Time Delivery Rate 10/02/18 98.0 94 18 131/86 97 Room Air 13:59 (101) 10/02/18 21 13:22 09/30/18 2.0 09:13 Intake and Output 10/01/18 10/01/18 10/02/18 1515:00 23:00 07:00 IntakeIntake Total 1210 ml 980 ml 500 ml OutputOutput Total 3800 ml 900 ml 2000 ml BalanceBalance -2590 ml 80 ml -1500 ml Constitutional: non-verbal (talking non-sense) Psych: confusion Head: normocephalic, atraumatic Eyes: nl conjunctiva, nl lids ENMT: nl external ears & nose, nl nasal mucosa & septum Neck: non-tender Respiratory: clear to auscultation, normal air movement Cardiovascular: regular rate and rhythm, nl pulses Gastrointestinal: soft, non-tender, other (GT) Musculoskeletal: nl extremities to inspection Extremities: No edema Neurological: confused Skin: No rash or lesions Results Result Diagram: 10/01/185 10/01/18454 Medications Medication Current Medications Enoxaparin Sodium (Lovenox) 30 mg DAILY SC Last administered on 10/02/18 08:51; Admin Dose 30 MG; Start 09/27/18 at 09:00 Ondansetron HCl (Zofran Inj) 4 mg Q6H PRN IV NAUSEA AND/OR VOMITING; Start 09/27/18 at 03:00 Docusate Sodium (Colace Liquid Cup) 50 mg DAILY GTB Last administered on 10/02/18 08:50; Admin Dose 50 MG; Start 09/28/18 at 09:00 Famotidine (Pepcid) 20 mg BID GTB Last administered on 10/02/18 08:50; Admin Dose 20 MG; Start 09/27/18 at 21:00 Folic Acid (Folic Acid) 1 mg DAILY GTB Last administered on 10/02/18 08:50; Ad min Dose 1 MG; Start 09/28/18 at 09:00 Metoprolol Tartrate (Lopressor) 50 mg BID GTB Last administered on 10/02/18 08:49; Admin Dose 50 MG; Start 09/27/18 at 12:00 Senna (Senokot) 1 tab QHS GTB Last administered on 10/01/18 20:06; Admin Dose 1 TAB; Start 09/27/18 at 21:00 Multivitamins/ Minerals (Theragran-M) 1 tab DAILY GTB Last administered on 10/02/18 08:50; Admin Dose 1 TAB; Start 09/28/18 at 09:00 Quetiapine Fumarate (Seroquel) 25 mg BID GTB Last administered on 10/02/18 08:50; Admin Dose 25 MG; Start 09/27/18 at 12:00 Cefepime HCl 50 ml @ 100 mls/hr Q12 IVPB Last administered on 10/02/18 08:57; Admin Dose 100 MLS/HR; Start 09/27/18 at 21:00 Nystatin (Nystatin Powder) 1 applic BID TOP Last administered on 10/02/18 08:56; Admin Dose 1 APPLIC; Start 09/27/18 at 21:00 Acetaminophen (Tylenol Tab) 650 mg Q4H PRN PO MILD PAIN(1-3)OR ELEVATED TEMP Last administered on 09/28/18 08:03; Admin Dose 650 MG; Start 09/28/18 at 05:00 Clonazepam (Klonopin) 1 mg TID GTB Last administered on 10/02/18 13:28; Admin Dose 1 MG; Start 09/30/18 at 13:00 Albuterol/ Ipratropium (Duoneb) 3 ml Q6HWA RESP THERAPY HHN Last administered on 10/02/18 13:22; Admin Dose 3 ML; Start 09/30/18 at 20:00 DEWAYNE DOUGLAS M.D. Oct 02, 2018 17:20
--- NOTE | 2018-10-02 17:31 | PN ---
Date/Time of Note Date/Time of Note DATE: 10/02/18 TIME: 17:24 Assessment/Plan VTE Prophylaxis Risk score (from Ns)>0 risk: 4 SCD applied (from Ns): Yes Pharmacological prophylaxis: LMWH Lines/Catheters IV Catheter Type (from Nrs): Peripheral IV Urinary Cath still in place: Yes Reason Cath still needed: urinary retention Assessment/Plan Hospital Course No acute events overnight, patient remains stable, no fever. Assessment/Plan -Sepsis with gram-negative rods bacteremia secondary to urinary tract infection, continue antibiotics per ID. Dr. Maya is following in infection disease consultation. -Acute kidney injury and hyponatremia secondary to dehydration, resolving. Continue IV fluids. -GERD -Dyslipidemia -BPH -Chronic encephalopathy -Schizophrenia -Dysphagia with G-tube, patient is currently able to tolerate diet -Rojas catheter present on admission -History of fracture of left tibia and fibula Further recommendations based on clinical course. Plan of care discussed with Dr. Shafer. Result Diagram: 10/01/185 10/01/18454 Exam/Review of Systems Exam Vitals Vital Signs Date Temp Pulse Resp B/P (MAP) Pulse Ox O2 O2 Flow FiO2 Time Delivery Rate 10/02/18 98.0 94 18 131/86 97 Room Air 13:59 (101) 10/02/18 21 13:22 09/30/18 2.0 09:13 Intake and Output 10/01/18 10/01/18 10/02/18 1515:00 23:00 07:00 IntakeIntake Total 1210 ml 980 ml 500 ml OutputOutput Total 3800 ml 900 ml 2000 ml BalanceBalance -2590 ml 80 ml -1500 ml Exam Constitutional: alert Head: normocephalic Respiratory: clear to auscultation Cardiovascular: nl pulses Gastrointestinal: soft, non-tender, other (G-tube) Genitourinary - Male: other (Rojas catheter) Musculoskeletal: nl extremities to inspection Neurological: confused Medications Medication Current Medications Enoxaparin Sodium (Lovenox) 30 mg DAILY SC Last administered on 10/02/18at 08:51; Admin Dose 30 MG; Start 09/27/18 at 09:00 Ondansetron HCl (Zofran Inj) 4 mg Q6H PRN IV NAUSEA AND/OR VOMITING; Start 09/27/18 at 03:00 Docusate Sodium (Colace Liquid Cup) 50 mg DAILY GTB Last administered on 10/02/18 08:50; Admin Dose 50 MG; Start 09/28/18 at 09:00 Famotidine (Pepcid) 20 mg BID GTB Last administered on 10/02/18 08:50; Admin Dose 20 MG; Start 09/27/18 at 21:00 Folic Acid (Folic Acid) 1 mg DAILY GTB Last administered on 10/02/18 08:50; Admin Dose 1 MG; Start 09/28/18 at 09:00 Metoprolol Tartrate (Lopressor) 50 mg BID GTB Last administered on 10/02/18 08:49; Admin Dose 50 MG; Start 09/27/18 at 12:00 Senna (Senokot) 1 tab QHS GTB Last administered on 10/01/18 20:06; Admin Dose 1 TAB; Start 09/27/18 at 21:00 Multivitamins/ Minerals (Theragran-M) 1 tab DAILY GTB Last administered on 10/02/18 08:50; Admin Dose 1 TAB; Start 09/28/18 at 09:00 Quetiapine Fumarate (Seroquel) 25 mg BID GTB Last administered on 10/02/18 08:50; Admin Dose 25 MG; Start 09/27/18 at 12:00 Cefepime HCl 50 ml @ 100 mls/hr Q12 IVPB Last administered on 10/02/18 08:57; Admin Dose 100 MLS/HR; Start 09/27/18 at 21:00 Nystatin (Nystatin Powder) 1 applic BID TOP Last administered on 10/02/18 08:56; Admin Dose 1 APPLIC; Start 09/27/18 at 21:00 Acetaminophen (Tylenol Tab) 650 mg Q4H PRN PO MILD PAIN(1-3)OR ELEVATED TEMP Last administered on 09/28/18 08:03; Admin Dose 650 MG; Start 09/28/18 at 05:00 Clonazepam (Klonopin) 1 mg TID GTB Last administered on 10/02/18 13:28; Admin Dose 1 MG; Start 09/30/18 at 13:00 Albuterol/ Ipratropium (Duoneb) 3 ml Q6HWA RESP THERAPY HHN Last administered on 7/24/19at 13:22; Admin Dose 3 ML; Start 09/30/18 at 20:00 ARIEL BLANK Oct 02, 2018 17:31
[2018-10-02 20:00] VITALS: BP 134/88; PULSE 96; RESP 17
[2018-10-02] MEDS: clonAZEPAM 0.5 MG TAB PO SCH (21:49)
[2018-10-02] MEDS: FAMOTIDINE 20 MG TAB PO SCH (21:49)
[2018-10-02] MEDS: METOPROLOL 50 MG TAB PO SCH (21:50)
[2018-10-02] MEDS: QUETIAPINE 25 MG TAB PO SCH (21:50)
[2018-10-03 02:00] VITALS: BP 131/85; PULSE 86; RESP 18
[2018-10-03 07:32] VITALS: BP 132/89; PULSE 88; RESP 18
[2018-10-03] MEDS: ALBUTEROL/IPRATROPIUM (NEB) 3 ML AMP HHN SCH ×3 (08:00→21:02)
[2018-10-03] MEDS: MULTIVITAMINS/MINERALS TAB PO SCH (08:39)
[2018-10-03] MEDS: DOCUSATE SODIUM 10 MG/ML (10ML CUP) PO SCH (08:39)
[2018-10-03] MEDS: QUETIAPINE 25 MG TAB PO SCH ×2 (08:40→20:59)
[2018-10-03] MEDS: FOLIC ACID 1 MG TAB PO SCH (08:40)
[2018-10-03] MEDS: LOSARTAN 25 MG TAB PO SCH (08:40)
[2018-10-03] MEDS: clonAZEPAM 0.5 MG TAB PO SCH ×3 (08:40→20:59)
[2018-10-03] MEDS: FAMOTIDINE 20 MG TAB PO SCH ×2 (08:40→20:59)
[2018-10-03] MEDS: METOPROLOL 50 MG TAB PO SCH ×2 (08:41→21:00)
[2018-10-03] MEDS: NYSTATIN 30 GM POWDER BTL TOP SCH ×2 (08:41→21:00)
[2018-10-03] MEDS: ENOXAPARIN 30 MG/0.3 ML SYG SC SCH (08:46)
[2018-10-03] MEDS: CEFEPIME 2GM/50 ML (PMX) 50 ML IVPB SCH ×2 (08:51→21:00)
--- NOTE | 2018-10-03 11:17 | CONS ---
Assessment/Plan Assessment/Plan Assessment/Plan (Daily) 1. acute kidney injury due to ATN from UTI and Prerenal azotemia 2. SIRS due to UTI and bacteremia 3. Bacteremia with Blood Cx growing Enterobacter 4. H/o BPH with Urinary obstruction ,chronic indwelling curry catheter 5. H/o Chronic encephalopathy 6. H/o SChizophrenia 7. H/o G tube placement 8. H/o Fracture of left hip s/p ORIF Plan: BUN/Cr improved to 24/1.02- other electrolytes stable , Losartan 12.5 mg PO daily , monitor K Continue MTP 50mg PO BID for BP control, will use IV hydralazine for BP control Gold bx cefepie for Enterobacter bacteremia ,Renally dose all abx and monitor electrolytes will follow up Consultation Date/Type/Reason Admit Date/Time Sep 27, 2018 at 01:07 Initial Consult Date 09/27/18 Type of Consult NEPHROLOGY Requesting Provider: CORBIN GAYTAN Date/Time of Note DATE: 10/03/18 TIME: 11:17 Exam/Review of Systems Exam Vitals Vital Signs Date Temp Pulse Resp B/P (MAP) Pulse Ox O2 O2 Flow FiO2 Time Delivery Rate 10/03/18 86 18 21 08:00 10/03/18 99.0 132/89 95 Room Air 07:32 (103) 09/30/18 2.0 09:13 Intake and Output 10/02/18 10/02/18 10/03/18 1414:59 22:59 06:59 IntakeIntake Total 550 ml 250 ml OutputOutput Total 1800 ml 1500 ml 2000 ml BalanceBalance -1250 ml -1250 ml -2000 ml Exam Constitutional: awake Head: normocephalic, atraumatic Respiratory: clear to auscultation, normal air movement Cardiovascular: regular rate and rhythm, nl pulses; Gastrointestinal: soft, non-tender, other (GT); No distended, No tender Genitourinary - Male: other (FC) Musculoskeletal: other (L hip and LLE have well healed surgical scars) Extremities: No edema Neurological: Non focal Results Result Diagram: 10/03/1852310/03/18523 Results 24hrs Laboratory Tests Test 10/03/18 05:24 White Blood Count 10.0 Red Blood Count 3.50 L Hemoglobin 10.6 L Hematocrit 33.1 L Mean Corpuscular Volume 94.6 Mean Corpuscular Hemoglobin 30.3 Mean Corpuscular Hemoglobin Concent 32.0 Red Cell Distribution Width 15.7 H Platelet Count 298 # Mean Platelet Volume 9.4 Immature Granulocytes % 1.600 H Neutrophils % 82.6 H Lymphocytes % 8.6 L Monocytes % 5.2 Eosinophils % 1.5 Basophils % 0.5 Nucleated Red Blood Cells % 0.0 Immature Granulocytes # 0.160 H Neutrophils # 8.2 H Lymphocytes # 0.9 Monocytes # 0.5 Eosinophils # 0.2 Basophils # 0.1 Nucleated Red Blood Cells # 0.0 Sodium Level 138 Potassium Level 4.7 Chloride Level 101 Carbon Dioxide Level 28 Anion Gap 9 Blood Urea Nitrogen 24 H Creatinine 0.96 Est Glomerular Filtrat Rate mL/min > 60 Glucose Level 94 Calcium Level 9.5 Medications Medication Current Medications Enoxaparin Sodium (Lovenox) 30 mg DAILY SC Last administered on 10/03/18 08:46; Admin Dose 30 MG; Start 09/27/18 at 09:00 Ondansetron HCl (Zofran Inj) 4 mg Q6H PRN IV NAUSEA AND/OR VOMITING; Start 09/27/18 at 03:00 Cefepime HCl 50 ml @ 100 mls/hr Q12 IVPB Last administered on 10/03/18 08:51; Admin Dose 100 MLS/HR; Start 09/27/18 at 21:00 Nystatin (Nystatin Powder) 1 applic BID TOP Last administered on 10/03/18 08:41; Admin Dose 1 APPLIC; Start 09/27/18 at 21:00 Acetaminophen (Tylenol Tab) 650 mg Q4H PRN PO MILD PAIN(1-3)OR ELEVATED TEMP [facility] administered on 09/28/18 08:03; Admin Dose 650 MG; Start 09/28/18 at 05:00 Albuterol/ Ipratropium (Duoneb) 3 ml Q6HWA RESP THERAPY HHN Last administered on 10/03/18 08:00; Admin Dose 3 ML; Start 09/30/18 at 20:00 Losartan Potassium (Cozaar) 12.5 mg DAILY PO Last administered on 10/03/18 08: 40; Admin Dose 12.5 MG; Start 10/03/18 at 09:00 Clonazepam (Klonopin) 1 mg TID PO Last administered on 10/03/18 08:40; Admin Dose 1 MG; Start 10/02/18 at 22:00 Docusate Sodium (Colace Liquid Cup) 50 mg DAILY PO Last administered on 10/03/18 08:39; Admin Dose 50 MG; Start 10/03/18 at 09:00 Famotidine (Pepcid) 20 mg BID PO Last administered on 10/03/18 08:40; Admin Dose 20 MG; Start 10/02/18 at 22:00 Folic Acid (Folic Acid) 1 mg DAILY PO Last administered on 10/03/18 08:40; Admin Dose 1 MG; Start 10/03/18 at 09:00 Metoprolol Tartrate (Lopressor) 50 mg BID PO Last administered on 10/03/18 08:41; Admin Dose 50 MG; Start 10/02/18 at 22:00 Multivitamins/ Minerals (Theragran-M) 1 tab DAILY PO Last administered on 10/03/18 08:39; Admin Dose 1 TAB; Start 10/03/18 at 09:00 Quetiapine Fumarate (Seroquel) 25 mg BID PO Last administered on 10/03/18 08:40; Admin Dose 25 MG; Start 10/02/18 at 22:00 Senna (Senokot) 1 tab QHS PO ; Start 10/03/18 at 21:00 MARCOS MOODY MD Oct 03, 2018 11:17
[2018-10-03 13:52] VITALS: BP 110/66; PULSE 93; RESP 18
--- NOTE | 2018-10-03 18:05 | PN ---
Date/Time of Note Date/Time of Note DATE: 10/03/18 TIME: 18:02 Assessment/Plan VTE Prophylaxis Risk score (from Ns)>0 risk: 2 SCD applied (from Ns): Yes Pharmacological prophylaxis: LMWH Lines/Catheters IV Catheter Type (from Nrs): Peripheral IV Central line still needed: Yes Urinary Cath still in place: Yes Reason Cath still needed: urinary retention Assessment/Plan Hospital Course Patient with low-grade temperature, continues treatment with antibiotics for bacteremia, encourage use of incentive spirometer, will obtain PT eval. Assessment/Plan -Sepsis with gram-negative rods bacteremia secondary to urinary tract infection, continue antibiotics per ID. Dr. Maya is following in infection disease consultation. -Acute kidney injury and hyponatremia secondary to dehydration, resolving. Continue IV fluids. -GERD -Dyslipidemia -BPH -Chronic encephalopathy -Schizophrenia -Dysphagia with G-tube, patient is currently able to tolerate diet -Rojas catheter present on admission -History of fracture of left tibia and fibula Further recommendations based on clinical course. Plan of care discussed with Dr. Shafer. Result Diagram: 10/03/1852310/03/18 0524 Results 24hrs Laboratory Tests Test 10/03/18 05:24 White Blood Count 10.0 Red Blood Count 3.50 L Hemoglobin 10.6 L Hematocrit 33.1 L Mean Corpuscular Volume 94.6 Mean Corpuscular Hemoglobin 30.3 Mean Corpuscular Hemoglobin Concent 32.0 Red Cell Distribution Width 15.7 H Platelet Count 298 # Mean Platelet Volume 9.4 Immature Granulocytes % 1.600 H Neutrophils % 82.6 H Lymphocytes % 8.6 L Monocytes % 5.2 Eosinophils % 1.5 Basophils % 0.5 Nucleated Red Blood Cells % 0.0 Immature Granulocytes # 0.160 H Neutrophils # 8.2 H Lymphocytes # 0.9 Monocytes # 0.5 Eosinophils # 0.2 Basophils # 0.1 Nucleated Red Blood Cells # 0.0 Sodium Level 138 Potassium Level 4.7 Chloride Level 101 Carbon Dioxide Level 28 Anion Gap 9 Blood Urea Nitrogen 24 H Creatinine 0.96 Est Glomerular Filtrat Rate mL/min > 60 Glucose Level 94 Calcium Level 9.5 Exam/Review of Systems Exam Vitals Vital Signs Date Temp Pulse Resp B/P (MAP) Pulse Ox O2 O2 Flow FiO2 Time Delivery Rate 10/03/18 85 18 98 21 14:50 10/03/18 98.9 110/66 Room Air 13:52 (81) 09/30/18 2.0 09:13 Intake and Output 10/02/18 10/02/18 10/03/18 1515:00 23:00 07:00 IntakeIntake Total 550 ml 250 ml OutputOutput Total 1800 ml 1500 ml 2000 ml BalanceBalance -1250 ml -1250 ml -2000 ml Exam Constitutional: alert Head: normocephalic Respiratory: clear to auscultation Cardiovascular: nl pulses Gastrointestinal: soft, non-tender, other (G-tube) Genitourinary - Male: other (Rojas catheter) Musculoskeletal: nl extremities to inspection Neurological: confused Results Results 24hrs Laboratory Tests Test 10/03/18 05:24 White Blood Count 10.0 Red Blood Count 3.50 L Hemoglobin 10.6 L Hematocrit 33.1 L Mean Corpuscular Volume 94.6 Mean Corpuscular Hemoglobin 30.3 Mean Corpuscular Hemoglobin Concent 32.0 Red Cell Distribution Width 15.7 H Platelet Count 298 # Mean Platelet Volume 9.4 Immature Granulocytes % 1.600 H Neutrophils % 82.6 H Lymphocytes % 8.6 L Monocytes % 5.2 Eosinophils % 1.5 Basophils % 0.5 Nucleated Red Blood Cells % 0.0 Immature Granulocytes # 0.160 H Neutrophils # 8.2 H Lymphocytes # 0.9 Monocytes # 0.5 Eosinophils # 0.2 Basophils # 0.1 Nucleated Red Blood Cells # 0.0 Sodium Level 138 Potassium Level 4.7 Chloride Level 101 Carbon Dioxide Level 28 Anion Gap 9 Blood Urea Nitrogen 24 H Creatinine 0.96 Est Glomerular Filtrat Rate mL/min > 60 Glucose Level 94 Calcium Level 9.5 Medications Medication Current Medications Enoxaparin Sodium (Lovenox) 30 mg DAILY SC Last administered on 10/03/18at 08:46; Admin Dose 30 MG; Start 09/27/18 at 09:00 Ondansetron HCl (Zofran Inj) 4 mg Q6H PRN IV NAUSEA AND/OR VOMITING; Start 09/27/18 at 03:00 Cefepime HCl 50 ml @ 100 mls/hr Q12 IVPB Last administered on 10/03/18at 08:51; Admin Dose 100 MLS/HR; Start 09/27/18 at 21:00 Nystatin (Nystatin Powder) 1 applic BID TOP Last administered on 10/03/18 08:41; Admin Dose 1 APPLIC; Start 09/27/18 at 21:00 Acetaminophen (Tylenol Tab) 650 mg Q4H PRN PO MILD PAIN(1-3)OR ELEVATED TEMP Last administered on 09/28/18 08:03; Admin Dose 650 MG; Start 09/28/18 at 05:00 Albuterol/ Ipratropium (Duoneb) 3 ml Q6HWA RESP THERAPY HHN Last administered on 10/03/18 14:50; Admin Dose 3 ML; Start 09/30/18 at 20:00 Losartan Potassium (Cozaar) 12.5 mg DAILY PO Last administered on 10/03/18 08:40; Admin Dose 12.5 MG; Start 10/03/18 at 09:00 Clonazepam (Klonopin) 1 mg TID PO Last administered on 10/03/18 12:28; Admin Dose 1 MG; Start 10/02/18 at 22:00 Docusate Sodium (Colace Liquid Cup) 50 mg DAILY PO Last administered on 10/03/18 08:39; Admin Dose 50 MG; Start 10/03/18 at 09:00 Famotidine (Pepcid) 20 mg BID PO Last administered on 10/03/18 08:40; Admin Dose 20 MG; Start 10/02/18 at 22:00 Folic Acid (Folic Acid) 1 mg DAILY PO Last administered on 10/03/18 08:40; Admin Dose 1 MG; Start 10/03/18 at 09:00 Metoprolol Tartrate (Lopressor) 50 mg BID PO Last administered on 10/03/18 08: 41; Admin Dose 50 MG; Start 10/02/18 at 22:00 Multivitamins/ Minerals (Theragran-M) 1 tab DAILY PO Last administered on 10/03/18 08:39; Admin Dose 1 TAB; Start 10/03/18 at 09:00 Quetiapine Fumarate (Seroquel) 25 mg BID PO Last administered on 10/03/18 08:40; Admin Dose 25 MG; Start 10/02/18 at 22:00 Senna (Senokot) 1 tab QHS PO ; Start 10/03/18 at 21:00 ARIEL BLANK Oct 03, 2018 18:05
[2018-10-03 20:30] VITALS: BP 121/81; PULSE 97; RESP 18
[2018-10-03] MEDS: SENNA TAB PO SCH (20:59)
--- NOTE | 2018-10-03 21:28 | CONS ---
Assessment/Plan Assessment/Plan Hospital Course (Demo Recall) assessment/impression - s/p severe sepsis due to bacteremia and UTI, improved - s/p persistent bacteremia due to enterobacter 09/26 and 09/27, latest blood cultures on 09/29/2018 are negative - s/p UTI due to enterbacter. Rojas catheter was changed at [facility] - BPH, has an indwelling Rojas at [facility], improved - chronic encephalopathy, talks non-sense only - h/o dysphagia, improved - h/o GT placement but Pt takes pureed diet - h/o fracture of L hip h/o ORIF - h/o surgeries of LLE and L shoulder - intertrigo of groin area - cough, possible aspiration. CXR on 10/01/2018 showed atelectasis vs minimal infiltrate at the periphery of JUSTINO. Improved recommendations - pending results: respiratory virus panel - continue cefepime (09/26/2018-) x 2 weeks after the first negative blood culture i.el from 09/29/2018 to 10/13/2018 - continue nystatin to the tinea of the groin management d/w Pt's RN Catie Consultation Date/Type/Reason Admit Date/Time Sep 27, 2018 at 01:07 Initial Consult Date 09/27/18 Type of Consult ID Requesting Provider: CORBIN GAYTAN Date/Time of Note DATE: 10/03/18 TIME: 21:25 24 HR Interval Summary Subjective hx not possible: pt non-verbal (munbling non-sense) Exam/Review of Systems Exam Vitals Vital Signs Date Temp Pulse Resp B/P (MAP) Pulse Ox O2 O2 Flow FiO2 Time Delivery Rate 10/03/18 99.5 97 18 121/81 95 Room Air 20:30 (94) 10/03/18 21 14:50 09/30/18 2.0 09:13 Intake and Output 10/02/18 10/02/18 10/03/18 1515:00 23:00 07:00 IntakeIntake Total 550 ml 250 ml OutputOutput Total 1800 ml 1500 ml 2000 ml BalanceBalance -1250 ml -1250 ml -2000 ml Constitutional: well developed Psych: confusion (munmbling nonsense) Head: normocephalic, atraumatic Eyes: nl conjunctiva, nl lids ENMT: nl external ears & nose, nl nasal mucosa & septum, other (Pt did not open his mouth for exam) Neck: non-tender Respiratory: clear to auscultation, normal air movement Cardiovascular: regular rate and rhythm, nl pulses Gastrointestinal: soft, non-tender, bowel sounds, other (GT) Musculoskeletal: nl extremities to inspection (flexed) Extremities: normal pulses Neurological: confused Skin: No rash or lesions Results Result Diagram: 10/03/1852310/03/18523 Results 24hrs Laboratory Tests Test 10/03/18 05:24 White Blood Count 10.0 Red Blood Count 3.50 L Hemoglobin 10.6 L Hematocrit 33.1 L Mean Corpuscular Volume 94.6 Mean Corpuscular Hemoglobin 30.3 Mean Corpuscular Hemoglobin Concent 32.0 Red Cell Distribution Width 15.7 H Platelet Count 298 # Mean Platelet Volume 9.4 Immature Granulocytes % 1.600 H Neutrophils % 82.6 H Lymphocytes % 8.6 L Monocytes % 5.2 Eosinophils % 1.5 Basophils % 0.5 Nucleated Red Blood Cells % 0.0 Immature Granulocytes # 0.160 H Neutrophils # 8.2 H Lymphocytes # 0.9 Monocytes # 0.5 Eosinophils # 0.2 Basophils # 0.1 Nucleated Red Blood Cells # 0.0 Sodium Level 138 Potassium Level 4.7 Chloride Level 101 Carbon Dioxide Level 28 Anion Gap 9 Blood Urea Nitrogen 24 H Creatinine 0.96 Est Glomerular Filtrat Rate mL/min > 60 Glucose Level 94 Calcium Level 9.5 Medications Medication Current Medications Enoxaparin Sodium (Lovenox) 30 mg DAILY SC Last administered on 10/03/18at 08:46; Admin Dose 30 MG; Start 09/27/18 at 09:00 Ondansetron HCl (Zofran Inj) 4 mg Q6H PRN IV NAUSEA AND/OR VOMITING; Start 09/27/18 at 03:00 Cefepime HCl 50 ml @ 100 mls/hr Q12 IVPB Last administered on 10/03/18at 21:00; Admin Dose 100 MLS/HR; Start 09/27/18 at 21:00 Nystatin (Nystatin Powder) 1 applic BID TOP Last administered on 10/03/18at 21:00; Admin Dose 1 APPLIC; Start 09/27/18 at 21:00 Acetaminophen (Tylenol Tab) 650 mg Q4H PRN PO MILD PAIN(1-3)OR ELEVATED TEMP [facility] administered on 09/28/18 08:03; Admin Dose 650 MG; Start 09/28/18 at 05:00 Albuterol/ Ipratropium (Duoneb) 3 ml Q6HWA RESP THERAPY HHN Last administered on 10/03/18 14:50; Admin Dose 3 ML; Start 09/30/18 at 20:00 Losartan Potassium (Cozaar) 12.5 mg DAILY PO Last administered on 10/03/18 08: 40; Admin Dose 12.5 MG; Start 10/03/18 at 09:00 Clonazepam (Klonopin) 1 mg TID PO Last administered on 10/03/18 20:59; Admin Dose 1 MG; Start 10/02/18 at 22:00 Docusate Sodium (Colace Liquid Cup) 50 mg DAILY PO Last administered on 10/03/18 08:39; Admin Dose 50 MG; Start 10/03/18 at 09:00 Famotidine (Pepcid) 20 mg BID PO Last administered on 10/03/18 20:59; Admin Dose 20 MG; Start 10/02/18 at 22:00 Folic Acid (Folic Acid) 1 mg DAILY PO Last administered on 10/03/18 08:40; Admin Dose 1 MG; Start 10/03/18 at 09:00 Metoprolol Tartrate (Lopressor) 50 mg BID PO Last administered on 10/03/18 21:00; Admin Dose 50 MG; Start 10/02/18 at 22:00 Multivitamins/ Minerals (Theragran-M) 1 tab DAILY PO Last administered on 10/03/18 08:39; Admin Dose 1 TAB; Start 10/03/18 at 09:00 Quetiapine Fumarate (Seroquel) 25 mg BID PO Last administered on 10/03/18 20:59; Admin Dose 25 MG; Start 10/02/18 at 22:00 Senna (Senokot) 1 tab QHS PO Last administered on 10/03/18 20:59; Admin Dose 1 TAB; Start 10/03/18 at 21:00 DEWAYNE DOUGLAS M.D. Oct 03, 2018 21:28
[2018-10-04 02:54] VITALS: BP 133/82; PULSE 95; RESP 18
[2018-10-04 07:45] VITALS: BP 147/93; PULSE 78; RESP 18
[2018-10-04] MEDS: ALBUTEROL/IPRATROPIUM (NEB) 3 ML AMP HHN SCH ×2 (08:00→20:00)
[2018-10-04] MEDS: CEFEPIME 2GM/50 ML (PMX) 50 ML IVPB SCH (08:10)
[2018-10-04] MEDS: DOCUSATE SODIUM 10 MG/ML (10ML CUP) PO SCH (08:12)
[2018-10-04] MEDS: MULTIVITAMINS/MINERALS TAB PO SCH (08:17)
[2018-10-04] MEDS: NYSTATIN 30 GM POWDER BTL TOP SCH (08:17)
[2018-10-04] MEDS: clonAZEPAM 0.5 MG TAB PO SCH ×3 (08:17→20:11)
[2018-10-04] MEDS: METOPROLOL 50 MG TAB PO SCH ×2 (08:18→20:11)
[2018-10-04] MEDS: QUETIAPINE 25 MG TAB PO SCH ×2 (08:18→20:11)
[2018-10-04] MEDS: FAMOTIDINE 20 MG TAB PO SCH ×2 (08:18→20:10)
[2018-10-04] MEDS: FOLIC ACID 1 MG TAB PO SCH (08:18)
[2018-10-04] MEDS: LOSARTAN 25 MG TAB PO SCH (08:18)
[2018-10-04] MEDS: ENOXAPARIN 30 MG/0.3 ML SYG SC SCH (08:19)
--- NOTE | 2018-10-04 08:58 | CONS ---
Assessment/Plan Assessment/Plan Assessment/Plan (Daily) 1. acute kidney injury due to ATN from UTI and Prerenal azotemia 2. SIRS due to UTI and bacteremia 3. Bacteremia with Blood Cx growing Enterobacter 4. H/o BPH with Urinary obstruction ,chronic indwelling curry catheter 5. H/o Chronic encephalopathy 6. H/o SChizophrenia 7. H/o G tube placement 8. H/o Fracture of left hip s/p ORIF Plan: BUN/Cr improved to 24/1.02- other electrolytes stable Losartan 12.5 mg PO daily , monitor K Continue MTP 50mg PO BID for BP control, will use IV hydralazine for BP control Gold bx cefepie for Enterobacter bacteremia ,Renally dose all abx and monitor electrolytes will follow up Consultation Date/Type/Reason Admit Date/Time Sep 27, 2018 at 01:07 Initial Consult Date 09/27/18 Type of Consult NEPHROLOGY Requesting Provider: CORBIN GAYTAN Date/Time of Note DATE: 10/04/18 TIME: 08:58 Exam/Review of Systems Exam Vitals Vital Signs Date Temp Pulse Resp B/P (MAP) Pulse Ox O2 O2 Flow FiO2 Time Delivery Rate 10/04/18 97.4 78 18 147/93 97 Room Air 07:45 (111) 10/03/18 21 14:50 09/30/18 2.0 09:13 Intake and Output 10/03/18 10/03/18 10/04/18 1515:00 23:00 07:00 IntakeIntake Total 350 ml 2350 ml 1700 ml OutputOutput Total 1900 ml 1900 ml BalanceBalance -1550 ml 450 ml 1700 ml Exam Constitutional: awake Head: normocephalic, atraumatic Respiratory: clear to auscultation, normal air movement Cardiovascular: regular rate and rhythm, nl pulses; Gastrointestinal: soft, non-tender, other (GT); No distended, No tender Genitourinary - Male: other (FC) Musculoskeletal: other (L hip and LLE have well healed surgical scars) Extremities: No edema Neurological: Non focal Results Result Diagram: 10/04/184 10/04/18423 Results 24hrs Laboratory Tests Test 10/04/18 04:24 White Blood Count 10.5 Red Blood Count 3.25 L Hemoglobin 10.0 L Hematocrit 31.3 L Mean Corpuscular Volume 96.3 Mean Corpuscular Hemoglobin 30.8 Mean Corpuscular Hemoglobin Concent 31.9 L Red Cell Distribution Width 15.4 H Platelet Count 347 Mean Platelet Volume 9.5 Immature Granulocytes % 1.200 H Neutrophils % 83.3 H Lymphocytes % 8.3 L Monocytes % 5.2 Eosinophils % 1.5 Basophils % 0.5 Nucleated Red Blood Cells % 0.0 Immature Granulocytes # 0.130 H Neutrophils # 8.7 H Lymphocytes # 0.9 Monocytes # 0.5 Eosinophils # 0.2 Basophils # 0.1 Nucleated Red Blood Cells # 0.0 Sodium Level 140 Potassium Level 4.7 Chloride Level 102 Carbon Dioxide Level 30 Anion Gap 8 Blood Urea Nitrogen 24 H Creatinine 1.02 Est Glomerular Filtrat Rate mL/min > 60 Glucose Level 97 Calcium Level 9.5 Medications Medication Current Medications Enoxaparin Sodium (Lovenox) 30 mg DAILY SC Last administered on 10/04/18 08:19; Admin Dose 30 MG; Start 09/27/18 at 09:00 Ondansetron HCl (Zofran Inj) 4 mg Q6H PRN IV NAUSEA AND/OR VOMITING; Start 09/27/18 at 03:00 Cefepime HCl 50 ml @ 100 mls/hr Q12 IVPB Last administered on 10/04/18 08:10; Admin Dose 100 MLS/HR; Start 09/27/18 at 21:00 Nystatin (Nystatin Powder) 1 applic BID TOP Last administered on 10/04/18 08:17; Admin Dose 1 APPLIC; Start 09/27/18 at 21:00 Acetaminophen (Tylenol Tab) 650 mg Q4H PRN PO MILD PAIN(1-3)OR ELEVATED TEMP Last administered on 09/28/18 08:03; Admin Dose 650 MG; Start 09/28/18 at 05:00 Albuterol/ Ipratropium (Duoneb) 3 ml Q6HWA RESP THERAPY HHN Last administered on 10/03/18 14:50; Admin Dose 3 ML; Start 09/30/18 at 20:00 Losartan Potassium (Cozaar) 12.5 mg DAILY PO Last administered on 10/04/18 08:18; Admin Dose 12.5 MG; Start 10/03/18 at 09:00 Clonazepam (Klonopin) 1 mg TID PO Last administered on 10/04/18 08:17; Admin Dose 1 MG; Start 10/02/18 at 22:00 Docusate Sodium (Colace Liquid Cup) 50 mg DAILY PO Last administered on 10/04/18 08:12; Admin Dose 50 MG; Start 10/03/18 at 09:00 Famotidine (Pepcid) 20 mg BID PO Last administered on 10/04/18 08:18; Admin Dose 20 MG; Start 10/02/18 at 22:00 Folic Acid (Folic Acid) 1 mg DAILY PO Last administered on 10/04/18 08:18; Admin Dose 1 MG; Start 10/03/18 at 09:00 Metoprolol Tartrate (Lopressor) 50 mg BID PO Last administered on 10/04/18 0 8:18; Admin Dose 50 MG; Start 10/02/18 at 22:00 Multivitamins/ Minerals (Theragran-M) 1 tab DAILY PO Last administered on 10/04/18 08:17; Admin Dose 1 TAB; Start 10/03/18 at 09:00 Quetiapine Fumarate (Seroquel) 25 mg BID PO Last administered on 10/04/18 08:18; Admin Dose 25 MG; Start 10/02/18 at 22:00 Senna (Senokot) 1 tab QHS PO Last administered on 10/03/18 20:59; Admin Dose 1 TAB; Start 10/03/18 at 21:00 MARCOS MOODY MD Oct 04, 2018 08:58
[2018-10-04 14:08] VITALS: BP 119/74; PULSE 89; RESP 18
--- NOTE | 2018-10-04 15:51 | PN ---
Date/Time of Note Date/Time of Note DATE: 10/04/18 TIME: 15:50 Assessment/Plan VTE Prophylaxis Risk score (from [facility] [place]0 risk: 2 SCD applied (from [facility] [place]): No SCD contraindicated: other Pharmacological prophylaxis: other Pharm contraindication: other Lines/Catheters IV Catheter Type (from [facility]): Peripheral IV Urinary Cath still in place: Yes Reason Cath still needed: urinary retention Assessment/Plan Assessment/Plan -Sepsis with gram-negative rods bacteremia secondary to urinary tract infection, continue antibiotics per ID. Dr. Maya is following in infection disease consultation. -Acute kidney injury and hyponatremia secondary to dehydration, resolving. Continue IV fluids. -GERD -Dyslipidemia -BPH -Chronic encephalopathy -Schizophrenia -Dysphagia with G-tube, patient is currently able to tolerate diet -Rojas catheter present on admission -History of fracture of left tibia and fibula Further recommendations based on clinical course. Plan of care discussed with Dr. Shafer. Result Diagram: 10/04/18 0424 10/04/18 0424 Results 24hrs Laboratory Tests Test 10/04/18 04:24 10/04/18 11:18 White Blood Count 10.5 Red Blood Count 3.25 L Hemoglobin 10.0 L Hematocrit 31.3 L Mean Corpuscular Volume 96.3 Mean Corpuscular Hemoglobin 30.8 Mean Corpuscular Hemoglobin Concent 31.9 L Red Cell Distribution Width 15.4 H Platelet Count 347 Mean Platelet Volume 9.5 Immature Granulocytes % 1.200 H Neutrophils % 83.3 H Lymphocytes % 8.3 L Monocytes % 5.2 Eosinophils % 1.5 Basophils % 0.5 Nucleated Red Blood Cells % 0.0 Immature Granulocytes # 0.130 H Neutrophils # 8.7 H Lymphocytes # 0.9 Monocytes # 0.5 Eosinophils # 0.2 Basophils # 0.1 Nucleated Red Blood Cells # 0.0 Sodium Level 140 Potassium Level 4.7 Chloride Level 102 Carbon Dioxide Level 30 Anion Gap 8 Blood Urea Nitrogen 24 H Creatinine 1.02 Est Glomerular Filtrat Rate mL/min > 60 Glucose Level 97 Calcium Level 9.5 Lab Scanned Report REFERENCE LAB Subjective 24 Hr Interval Summary Free Text/Dictation nad afebrile tolerates GT feedings no events lastnight Musculoskeletal: no complaints Exam/Review of Systems Exam Vitals Vital Signs Date Temp Pulse Resp B/P (MAP) Pulse Ox O2 O2 Flow FiO2 Time Delivery Rate 10/04/18 98.2 89 18 119/74 97 Room Air 14:08 (89) 10/03/18 21 14:50 09/30/18 2.0 09:13 Intake and Output 10/03/18 10/03/18 10/04/18 1515:00 23:00 07:00 IntakeIntake Total 350 ml 2350 ml 1700 ml OutputOutput Total 1900 ml 1900 ml BalanceBalance -1550 ml 450 ml 1700 ml Constitutional: alert Psych: nl mood/affect Head: atraumatic Eyes: nl lids, nl sclera Neck: supple Respiratory: clear to auscultation Cardiovascular: nl pulses, other (s1s2) Gastrointestinal: soft, non-tender, other (gt ) Musculoskeletal: nl extremities to inspection Extremities: normal pulses Neurological: other (alert) Skin: other (no skin rash noted; L hip and LLE have well healed surgical scars) Results Results 24hrs Laboratory Tests Test 10/04/18 04:24 10/04/18 11:18 White Blood Count 10.5 Red Blood Count 3.25 L Hemoglobin 10.0 L Hematocrit 31.3 L Mean Corpuscular Volume 96.3 Mean Corpuscular Hemoglobin 30.8 Mean Corpuscular Hemoglobin Concent 31.9 L Red Cell Distribution Width 15.4 H Platelet Count 347 Mean Platelet Volume 9.5 Immature Granulocytes % 1.200 H Neutrophils % 83.3 H Lymphocytes % 8.3 L Monocytes % 5.2 Eosinophils % 1.5 Basophils % 0.5 Nucleated Red Blood Cells % 0.0 Immature Granulocytes # 0.130 H Neutrophils # 8.7 H Lymphocytes # 0.9 Monocytes # 0.5 Eosinophils # 0.2 Basophils # 0.1 Nucleated Red Blood Cells # 0.0 Sodium Level 140 Potassium Level 4.7 Chloride Level 102 Carbon Dioxide Level 30 Anion Gap 8 Blood Urea Nitrogen 24 H Creatinine 1.02 Est Glomerular Filtrat Rate mL/min > 60 Glucose Level 97 Calcium Level 9.5 Lab Scanned Report REFERENCE LAB Medications Medication Current Medications Enoxaparin Sodium (Lovenox) 30 mg DAILY SC Last administered on 10/04/18at 08:19; Admin Dose 30 MG; Start 09/27/18 at 09:00 Ondansetron HCl (Zofran Inj) 4 mg Q6H PRN IV NAUSEA AND/OR VOMITING; Start 09/27/18 at 03:00 Cefepime HCl 50 ml @ 100 mls/hr Q12 IVPB Last administered on 10/04/18 08:10; Admin Dose 100 MLS/HR; Start 09/27/18 at 21:00 Nystatin (Nystatin Powder) 1 applic BID TOP Last administered on 10/04/18 08:17; Admin Dose 1 APPLIC; Start 09/27/18 at 21:00 Acetaminophen (Tylenol Tab) 650 mg Q4H PRN PO MILD PAIN(1-3)OR ELEVATED TEMP Last administered on 09/28/18 08:03; Admin Dose 650 MG; Start 09/28/18 at 05:00 Albuterol/ Ipratropium (Duoneb) 3 ml Q6HWA RESP THERAPY HHN Last administered on 10/03/18 14:50; Admin Dose 3 ML; Start 09/30/18 at 20:00 Losartan Potassium (Cozaar) 12.5 mg DAILY PO Last administered on 10/04/18 08:18; Admin Dose 12.5 MG; Start 10/03/18 at 09:00 Clonazepam (Klonopin) 1 mg TID PO Last administered on 10/04/18 12:27; Admin Dose 1 MG; Start 10/02/18 at 22:00 Docusate Sodium (Colace Liquid Cup) 50 mg DAILY PO Last administered on 10/04/18 08:12; Admin Dose 50 MG; Start 10/03/18 at 09:00 Famotidine (Pepcid) 20 mg BID PO Last administered on 10/04/18 08:18; Admin Dose 20 MG; Start 10/02/18 at 22:00 Folic Acid (Folic Acid) 1 mg DAILY PO Last administered on 10/04/18 08:18; Admin Dose 1 MG; Start 10/03/18 at 09:00 Metoprolol Tartrate (Lopressor) 50 mg BID PO Last administered on 10/04/18 08:18; Admin Dose 50 MG; Start 10/02/18 at 22:00 Multivitamins/ Minerals (Theragran-M) 1 tab DAILY PO Last administered on 10/04/18 08:17; Admin Dose 1 TAB; Start 10/03/18 at 09:00 Quetiapine Fumarate (Seroquel) 25 mg BID PO Last administered on 10/04/18at 08:18; Admin Dose 25 MG; Start 10/02/18 at 22:00 Senna (Senokot) 1 tab QHS PO Last administered on 10/03/18at 20:59; Admin Dose 1 TAB; Start 10/03/18 at 21:00 CORBIN GAYTAN Oct 04, 2018 15:51
--- NOTE | 2018-10-04 18:17 | CONS ---
Assessment/Plan Assessment/Plan Hospital Course (Demo Recall) assessment/impression - s/p severe sepsis due to bacteremia and UTI, improved - s/p persistent bacteremia due to enterobacter 09/26 and 09/27, latest blood cultures on 09/29/2018 are negative - s/p UTI due to enterbacter. Rojas catheter was changed at [facility], has an indwelling Rojas at [facility], improved - chronic encephalopathy, talks non-sense only - h/o dysphagia, improved - h/o GT placement but Pt takes pureed diet - h/o fracture of L hip h/o ORIF - h/o surgeries of LLE and L shoulder - intertrigo of groin area - cough, possible aspiration. CXR on 10/01/2018 showed atelectasis vs minimal infiltrate at the periphery of JUSTINO. Improved recommendations - change cefepime (09/26/2018-) to once a day IV levofloxacin, suggested end date: 10/13/2018 - please check weekly CBC and BMP while Pt's on IV antibiotic at [facility] management d/w Pt's KAROL Nevarez Consultation Date/Type/Reason Admit Date/Time Sep 27, 2018 at 01:07 Initial Consult Date 09/27/18 Type of Consult ID Requesting Provider: CORBIN GAYTAN Date/Time of Note DATE: 10/04/18 TIME: 18:06 24 HR Interval Summary Subjective hx not possible: pt non-verbal (speaking non-sense) Exam/Review of Systems Exam Vitals Vital Signs Date Temp Pulse Resp B/P (MAP) Pulse Ox O2 O2 Flow FiO2 Time Delivery Rate 10/04/18 98.2 89 18 119/74 97 Room Air 14:08 (89) 10/03/18 21 14:50 09/30/18 2.0 09:13 Intake and Output 10/03/18 10/03/18 10/04/18 1515:00 23:00 07:00 IntakeIntake Total 350 ml 2350 ml 1700 ml OutputOutput Total 1900 ml 1900 ml BalanceBalance -1550 ml 450 ml 1700 ml Constitutional: non-verbal (speaking non-sense) Psych: confusion Head: normocephalic, atraumatic Eyes: nl conjunctiva, nl sclera ENMT: nl external ears & nose, nl nasal mucosa & septum, mucosa pink and moist Neck: No masses Respiratory: clear to auscultation, normal air movement Cardiovascular: regular rate and rhythm, nl pulses Gastrointestinal: soft, non-tender; No distended Musculoskeletal: nl extremities to inspection Extremities: No edema Neurological: confused Skin: nl turgor Results Result Diagram: 10/04/184 10/04/18 0424 Results 24hrs Laboratory Tests Test 10/04/18 04:24 10/04/18 11:18 White Blood Count 10.5 Red Blood Count 3.25 L Hemoglobin 10.0 L Hematocrit 31.3 L Mean Corpuscular Volume 96.3 Mean Corpuscular Hemoglobin 30.8 Mean Corpuscular Hemoglobin Concent 31.9 L Red Cell Distribution Width 15.4 H Platelet Count 347 Mean Platelet Volume 9.5 Immature Granulocytes % 1.200 H Neutrophils % 83.3 H Lymphocytes % 8.3 L Monocytes % 5.2 Eosinophils % 1.5 Basophils % 0.5 Nucleated Red Blood Cells % 0.0 Immature Granulocytes # 0.130 H Neutrophils # 8.7 H Lymphocytes # 0.9 Monocytes # 0.5 Eosinophils # 0.2 Basophils # 0.1 Nucleated Red Blood Cells # 0.0 Sodium Level 140 Potassium Level 4.7 Chloride Level 102 Carbon Dioxide Level 30 Anion Gap 8 Blood Urea Nitrogen 24 H Creatinine 1.02 Est Glomerular Filtrat Rate mL/min > 60 Glucose Level 97 Calcium Level 9.5 Lab Scanned Report REFERENCE LAB Medications Medication Current Medications Enoxaparin Sodium (Lovenox) 30 mg DAILY SC Last administered on 10/04/18at 08:19; Admin Dose 30 MG; Start 09/27/18 at 09:00 Ondansetron HCl (Zofran Inj) 4 mg Q6H PRN IV NAUSEA AND/OR VOMITING; Start 09/27/18 at 03:00 Cefepime HCl 50 ml @ 100 mls/hr Q12 IVPB Last administered on 10/04/18at 08:10; Admin Dose 100 MLS/HR; Start 09/27/18 at 21:00 Nystatin (Nystatin Powder) 1 applic BID TOP Last administered on 10/04/18 08:17; Admin Dose 1 APPLIC; Start 09/27/18 at 21:00 Acetaminophen (Tylenol Tab) 650 mg Q4H PRN PO MILD PAIN(1-3)OR ELEVATED TEMP Last administered on 7/20/19at 08:03; Admin Dose 650 MG; Start 09/28/18 at 05:00 Albuterol/ Ipratropium (Duoneb) 3 ml Q6HWA RESP THERAPY HHN Last administered on 10/03/18 14:50; Admin Dose 3 ML; Start 09/30/18 at 20:00 Losartan Potassium (Cozaar) 12.5 mg DAILY PO Last administered on 10/04/18 08:18; Admin Dose 12.5 MG; Start 10/03/18 at 09:00 Clonazepam (Klonopin) 1 mg TID PO Last administered on 10/04/18 12:27; Admin Dose 1 MG; Start 10/02/18 at 22:00 Docusate Sodium (Colace Liquid Cup) 50 mg DAILY PO Last administered on 10/04/18 08:12; Admin Dose 50 MG; Start 10/03/18 at 09:00 Famotidine (Pepcid) 20 mg BID PO Last administered on 10/04/18 08:18; Admin Dose 20 MG; Start 10/02/18 at 22:00 Folic Acid (Folic Acid) 1 mg DAILY PO Last administered on 10/04/18 08:18; Admin Dose 1 MG; Start 10/03/18 at 09:00 Metoprolol Tartrate (Lopressor) 50 mg BID PO Last administered on 10/04/18 08:18; Admin Dose 50 MG; Start 10/02/18 at 22:00 Multivitamins/ Minerals (Theragran-M) 1 tab DAILY PO Last administered on 10/04/18 08:17; Admin Dose 1 TAB; Start 10/03/18 at 09:00 Quetiapine Fumarate (Seroquel) 25 mg BID PO Last administered on 10/04/18 08:18; Admin Dose 25 MG; Start 10/02/18 at 22:00 Senna (Senokot) 1 tab QHS PO Last administered on 10/03/18 20:59; Admin Dose 1 TAB; Start 10/03/18 at 21:00 DEWAYNE DOUGLAS M.D. Oct 04, 2018 18:16
[2018-10-04] MEDS: SENNA TAB PO SCH (20:11)
[2018-10-04 20:29] VITALS: BP 120/81; PULSE 111; RESP 18
[2018-10-04] MEDS: LEVOFLOXACIN 750MG/D5W (PMX) 150 ML IVPB SCH (20:35)
[2018-10-05 02:30] VITALS: BP 117/73; PULSE 99; RESP 18
[2018-10-05 07:45] VITALS: BP 129/81; PULSE 90; RESP 19
[2018-10-05] MEDS: DOCUSATE SODIUM 10 MG/ML (10ML CUP) PO SCH (08:30)
[2018-10-05] MEDS: ENOXAPARIN 30 MG/0.3 ML SYG SC SCH (08:31)
[2018-10-05] MEDS: ALBUTEROL/IPRATROPIUM (NEB) 3 ML AMP HHN SCH ×3 (08:32→20:00)
[2018-10-05] MEDS: FOLIC ACID 1 MG TAB PO SCH (08:32)
[2018-10-05] MEDS: FAMOTIDINE 20 MG TAB PO SCH ×2 (08:32→21:57)
[2018-10-05] MEDS: QUETIAPINE 25 MG TAB PO SCH ×2 (08:32→21:57)
[2018-10-05] MEDS: MULTIVITAMINS/MINERALS TAB PO SCH (08:32)
[2018-10-05] MEDS: METOPROLOL 50 MG TAB PO SCH ×2 (08:32→22:04)
[2018-10-05] MEDS: LOSARTAN 25 MG TAB PO SCH (08:33)
[2018-10-05] MEDS: clonAZEPAM 0.5 MG TAB PO SCH ×3 (08:33→21:57)
--- NOTE | 2018-10-05 12:23 | PN ---
Date/Time of Note Date/Time of Note DATE: 10/05/18 TIME: 12:22 Assessment/Plan VTE Prophylaxis Risk score (from [facility])>0 risk: 2 [place] [facility] [place]CD contraindicated: other Pharmacological prophylaxis: LMWH Lines/Catheters IV Catheter Type (from [facility]): Peripheral IV Urinary Cath still in place: Yes Reason Cath still needed: skin wounds contaminated by urine Assessment/Plan Hospital Course -Sepsis with gram-negative rods bacteremia secondary to urinary tract infection, continue antibiotics per ID. Dr. Maya is following in infection disease consultation. -Acute kidney injury and hyponatremia secondary to dehydration, resolving. Continue IV fluids. -GERD -Dyslipidemia -BPH -Chronic encephalopathy -Schizophrenia -Dysphagia with G-tube, patient is currently able to tolerate diet -Rojas catheter present on admission -History of fracture of left tibia and fibula Result Diagram: 10/04/1842310/04/18423 Subjective 24 Hr Interval Summary Free Text/Dictation Patient awake and communicative but does not seem to make sense verbally Exam/Review of Systems Exam Vitals Vital Signs Date Temp Pulse Resp B/P (MAP) Pulse Ox O2 O2 Flow FiO2 Time Delivery Rate 10/05/18 92 18 99 21 08:33 10/05/18 97.6 129/81 07:45 (97) 10/05/18 Room Air 02:30 Intake and Output 10/04/18 10/04/18 10/05/18 1515:00 23:00 07:00 IntakeIntake Total 550 ml 450 ml 400 ml OutputOutput Total 2500 ml 1800 ml 2500 ml BalanceBalance -1950 ml -1350 ml -2100 ml Constitutional: well developed Head: normocephalic, atraumatic Neck: supple Respiratory: diminished breath sounds Cardiovascular: regular rate and rhythm Gastrointestinal: soft, non-tender Extremities: normal pulses Medications Medication Current Medications Enoxaparin Sodium (Lovenox) 30 mg DAILY SC Last administered on 10/05/18at 08:31; Admin Dose 30 MG; Start 09/27/18 at 09:00 Ondansetron HCl (Zofran Inj) 4 mg Q6H PRN IV NAUSEA AND/OR VOMITING; Start 09/27/18 at 03:00 Acetaminophen (Tylenol Tab) 650 mg Q4H PRN PO MILD PAIN(1-3)OR ELEVATED TEMP Last administered on 09/28/18 08:03; Admin Dose 650 MG; Start 09/28/18 at 05:00 Albuterol/ Ipratropium (Duoneb) 3 ml Q6HWA RESP THERAPY HHN Last administered on 10/05/18 08:32; Admin Dose 3 ML; Start 09/30/18 at 20:00 Losartan Potassium (Cozaar) 12.5 mg DAILY PO Last administered on 10/05/18 08:33; Admin Dose 12.5 MG; Start 10/03/18 at 09:00 Clonazepam (Klonopin) 1 mg TID PO Last administered on 10/05/18 12:20; Admin Dose 1 MG; Start 10/02/18 at 22:00 Docusate Sodium (Colace Liquid Cup) 50 mg DAILY PO Last administered on 10/05/18 08:30; Admin Dose 50 MG; Start 10/03/18 at 09:00 Famotidine (Pepcid) 20 mg BID PO Last administered on 10/05/18 08:32; Admin Dose 20 MG; Start 10/02/18 at 22:00 Folic Acid (Folic Acid) 1 mg DAILY PO Last administered on 10/05/18 08:32; Admin Dose 1 MG; Start 10/03/18 at 09:00 Metoprolol Tartrate (Lopressor) 50 mg BID PO Last administered on 10/05/18 08:32; Admin Dose 50 MG; Start 10/02/18 at 22:00 Multivitamins/ Minerals (Theragran-M) 1 tab DAILY PO Last administered on 10/05/18 08:32; Admin Dose 1 TAB; Start 10/03/18 at 09:00 Quetiapine Fumarate (Seroquel) 25 mg BID PO Last administered on 10/05/18 08: 32; Admin Dose 25 MG; Start 10/02/18 at 22:00 Senna (Senokot) 1 tab QHS PO Last administered on 10/04/18 20:11; Admin Dose 1 TAB; Start 10/03/18 at 21:00 Levofloxacin/ Dextrose 150 ml @ 100 mls/hr Q24H IVPB Last administered on 10/04/18 20:35; Admin Dose 100 MLS/HR; Start 10/04/18 at 19:30; Stop 10/13/18 at 19:29 CLIFTON ROMANO Oct 05, 2018 12:23
--- NOTE | 2018-10-05 13:43 | CONS ---
Assessment/Plan Assessment/Plan Hospital Course (Demo Recall) assessment/impression - s/p severe sepsis due to bacteremia and UTI, improved - s/p persistent bacteremia due to enterobacter 09/26 and 09/27, latest blood cultures on 09/29/2018 are negative - s/p UTI due to enterbacter. Rojas catheter was changed at [facility] - [facility], has an indwelling Rojas at [facility], improved - chronic encephalopathy, talks non-sense only - h/o dysphagia, improved - h/o GT placement but Pt takes pureed diet - h/o fracture of L hip h/o ORIF - h/o surgeries of LLE and L shoulder - intertrigo of groin area - cough, possible aspiration. CXR on 10/01/2018 showed atelectasis vs minimal infiltrate at the periphery of JUSTINO. Improved recommendations - continue IV levofloxacin, suggested end date: 10/13/2018. Pt previously took cefepime (09/26/2018-10/04/2018) - please check weekly CBC and BMP while Pt's on IV antibiotic at [facility] Consultation Date/Type/Reason Admit Date/Time Sep 27, 2018 at 01:07 Initial Consult Date 09/27/18 Type of Consult ID Requesting Provider: CORBIN GAYTAN Date/Time of Note DATE: 10/05/18 TIME: 13:41 24 HR Interval Summary Subjective hx not possible: pt non-verbal (Pt refused physical exam by covering the head with a blanket and did not look at the examiner) Exam/Review of Systems Exam Vitals Vital Signs Date Temp Pulse Resp B/P (MAP) Pulse Ox O2 O2 Flow FiO2 Time Delivery Rate 10/05/18 92 18 99 21 08:33 10/05/18 97.6 129/81 07:45 (97) 10/05/18 Room Air 02:30 Intake and Output 10/04/18 10/04/18 10/05/18 1515:00 23:00 07:00 IntakeIntake Total 550 ml 450 ml 400 ml OutputOutput Total 2500 ml 1800 ml 2500 ml BalanceBalance -1950 ml -1350 ml -2100 ml Constitutional: non-verbal, frail, other (Pt coverd his head with a blanket and refused the exam) Psych: confusion Head: normocephalic, atraumatic ENMT: nl external ears & nose Neck: other (moving his neck smoothly) Respiratory: diminished breath sounds Cardiovascular: regular rate and rhythm Gastrointestinal: soft; No distended, No tender Musculoskeletal: nl extremities to inspection Extremities: No edema Neurological: other (did not follow commands at all) Skin: nl turgor Results Result Diagram: 10/04/184 10/04/18423 Medications Medication Current Medications Enoxaparin Sodium (Lovenox) 30 mg DAILY SC Last administered on 10/05/18 08:31; Admin Dose 30 MG; Start 09/27/18 at 09:00 Ondansetron HCl (Zofran Inj) 4 mg Q6H PRN IV NAUSEA AND/OR VOMITING; Start 09/27/18 at 03:00 Acetaminophen (Tylenol Tab) 650 mg Q4H PRN PO MILD PAIN(1-3)OR ELEVATED TEMP Last administered on 09/28/18 08:03; Admin Dose 650 MG; Start 09/28/18 at 05:00 Albuterol/ Ipratropium (Duoneb) 3 ml Q6HWA RESP THERAPY HHN Last administered on 10/05/18 08:32; Admin Dose 3 ML; Start 09/30/18 at 20:00 Losartan Potassium (Cozaar) 12.5 mg DAILY PO Last administered on 10/05/18 08:33; Admin Dose 12.5 MG; Start 10/03/18 at 09:00 Clonazepam (Klonopin) 1 mg TID PO Last administered on 10/05/18 12:20; Admin Dose 1 MG; Start 10/02/18 at 22:00 Docusate Sodium (Colace Liquid Cup) 50 mg DAILY PO Last administered on 10/05/18 08:30; Admin Dose 50 MG; Start 10/03/18 at 09:00 Famotidine (Pepcid) 20 mg BID PO Last administered on 10/05/18 08:32; Admin Dose 20 MG; Start 10/02/18 at 22:00 Folic Acid (Folic Acid) 1 mg DAILY PO Last administered on 10/05/18 08:32; Admin Dose 1 MG; Start 10/03/18 at 09:00 Metoprolol Tartrate (Lopressor) 50 mg BID PO Last administered on 10/05/18 08:32; Admin Dose 50 MG; Start 10/02/18 at 22:00 Multivitamins/ Minerals (Theragran-M) 1 tab DAILY PO Last administered on 10/05/18at 08:32; Admin Dose 1 TAB; Start 10/03/18 at 09:00 Quetiapine Fumarate (Seroquel) 25 mg BID PO Last administered on 10/05/18at 08:32; Admin Dose 25 MG; Start 10/02/18 at 22:00 Senna (Senokot) 1 tab QHS PO Last administered on 10/04/18at 20:11; Admin Dose 1 TAB; Start 10/03/18 at 21:00 Levofloxacin/ Dextrose 150 ml @ 100 mls/hr Q24H IVPB Last administered on 10/04/18at 20:35; Admin Dose 100 MLS/HR; Start 10/04/18 at 19:30; Stop 10/13/18 at 19:29 DEWAYNE DOUGLAS M.D. Oct 05, 2018 13:43
[2018-10-05 14:00] VITALS: BP 111/75; PULSE 100; RESP 20
--- NOTE | 2018-10-05 18:57 | CONS ---
Assessment/Plan Assessment/Plan Assessment/Plan (Daily) 1. acute kidney injury due to ATN from UTI and Prerenal azotemia 2. SIRS due to UTI and bacteremia 3. Bacteremia with Blood Cx growing Enterobacter 4. H/o BPH with Urinary obstruction ,chronic indwelling curry catheter 5. H/o Chronic encephalopathy 6. H/o SChizophrenia 7. H/o G tube placement 8. H/o Fracture of left hip s/p ORIF 9. Malnourished- will get dietary consult Plan: BUN/Cr improved to 24/1.02- other electrolytes stable UO - 6.8 L/24 hr Losartan 12.5 mg PO daily , monitor K Continue MTP 50mg PO BID for BP control, will use IV hydralazine for BP control Gold bx cefepie for Enterobacter bacteremia ,Renally dose all abx and monitor electrolytes Patient is seen in collaboration with DR Rosa Zapata. Plan of care dw staff. We will follow up. nad afebrile; resting in bed ; BUN/Cr 24/1.02; other electrolytes stable no events overnight dw staff Consultation Date/Type/Reason Admit Date/Time Sep 27, 2018 at 01:07 Initial Consult Date 09/27/18 Type of Consult NEPHROLOGY Reason for Consultation MANAS Requesting Provider: CORBIN GAYTAN Date/Time of Note DATE: 10/05/18 TIME: 18:57 24 HR Interval Summary Free Text/Dictation nad no reported shortness of breathe; chest pain afebrile; resting in bed ; BUN/Cr 24/1.02; other electrolytes stable no events overnight dw staff Subjective hx not possible: pt non-verbal Detailed Summary Musculoskeletal: bone/joint pain, restricted range of motion Exam/Review of Systems Exam Vitals Vital Signs Date Temp Pulse Resp B/P (MAP) Pulse Ox O2 O2 Flow FiO2 Time Delivery Rate 10/05/18 98.2 100 20 111/75 94 14:00 (87) 10/05/18 21 08:33 10/05/18 Room Air 02:30 Intake and Output 10/04/18 10/04/18 10/05/18 1515:00 23:00 07:00 IntakeIntake Total 550 ml 450 ml 400 ml OutputOutput Total 2500 ml 1800 ml 2500 ml BalanceBalance -1950 ml -1350 ml -2100 ml Constitutional: alert, well developed Psych: nl mood/affect Eyes: nl lids, nl sclera, PERRL ENMT: nl external ears & nose Neck: non-tender Respiratory: clear to auscultation Cardiovascular: nl pulses, other (S1S2) Gastrointestinal: soft, non-tender Musculoskeletal: joint tenderness, range of motion Extremities: normal pulses Neurological: confused, other (alert) Skin: other (no rash noted) Lymph: nontender Results Result Diagram: 10/04/1842310/04/18423 Medications Medication Current Medications Enoxaparin Sodium (Lovenox) 30 mg DAILY SC Last administered on 10/05/18 08:31; Admin Dose 30 MG; Start 09/27/18 at 09:00 Ondansetron HCl (Zofran Inj) 4 mg Q6H PRN IV NAUSEA AND/OR VOMITING; Start 09/27/18 at 03:00 Acetaminophen (Tylenol Tab) 650 mg Q4H PRN PO MILD PAIN(1-3)OR ELEVATED TEMP Last administered on 09/28/18 08:03; Admin Dose 650 MG; Start 09/28/18 at 05:00 Albuterol/ Ipratropium (Duoneb) 3 ml Q6HWA RESP THERAPY HHN Last administered on 10/05/18 08:32; Admin Dose 3 ML; Start 09/30/18 at 20:00 Losartan Potassium (Cozaar) 12.5 mg DAILY PO Last administered on 10/05/18 08:33; Admin Dose 12.5 MG; Start 10/03/18 at 09:00 Clonazepam (Klonopin) 1 mg TID PO Last administered on 10/05/18 12:20; Admin Dose 1 MG; Start 10/02/18 at 22:00 Docusate Sodium (Colace Liquid Cup) 50 mg DAILY PO Last administered on 10/05/18 08:30; Admin Dose 50 MG; Start 10/03/18 at 09:00 Famotidine (Pepcid) 20 mg BID PO Last administered on 10/05/18 08:32; Admin Dose 20 MG; Start 10/02/18 at 22:00 Folic Acid (Folic Acid) 1 mg DAILY PO Last administered on 10/05/18 08:32; Admin Dose 1 MG; Start 10/03/18 at 09:00 Metoprolol Tartrate (Lopressor) 50 mg BID PO Last administered on 10/05/18 08:32; Admin Dose 50 MG; Start 10/02/18 at 22:00 Multivitamins/ Minerals (Theragran-M) 1 tab DAILY PO Last administered on 10/05/18 08:32; Admin Dose 1 TAB; Start 10/03/18 at 09:00 Quetiapine Fumarate (Seroquel) 25 mg BID PO Last administered on 10/05/18 08:32; Admin Dose 25 MG; Start 10/02/18 at 22:00 Senna (Senokot) 1 tab QHS PO Last administered on 10/04/18 20:11; Admin Dose 1 TAB; Start 10/03/18 at 21:00 Levofloxacin/ Dextrose 150 ml @ 100 mls/hr Q24H IVPB Last administered on 10/04/18 20:35; Admin Dose 100 MLS/HR; Start 10/04/18 at 19:30; Stop 10/13/18 at 19:29 CORBIN GAYTAN Oct 05, 2018 18:57
[2018-10-05] MEDS: LEVOFLOXACIN 750MG/D5W (PMX) 150 ML IVPB SCH (19:54)
[2018-10-05 20:00] VITALS: BP 109/81; PULSE 93; RESP 18
[2018-10-05] MEDS: SENNA TAB PO SCH (21:57)
[2018-10-06 01:50] VITALS: BP 119/80; PULSE 87; RESP 19
[2018-10-06 08:23] VITALS: BP 143/83; PULSE 93; RESP 16
[2018-10-06] MEDS: MULTIVITAMINS/MINERALS TAB PO SCH (08:24)
[2018-10-06] MEDS: FAMOTIDINE 20 MG TAB PO SCH ×2 (08:24→20:12)
[2018-10-06] MEDS: clonAZEPAM 0.5 MG TAB PO SCH ×3 (08:24→20:13)
[2018-10-06] MEDS: FOLIC ACID 1 MG TAB PO SCH (08:24)
[2018-10-06] MEDS: QUETIAPINE 25 MG TAB PO SCH ×2 (08:24→20:13)
[2018-10-06] MEDS: DOCUSATE SODIUM 10 MG/ML (10ML CUP) PO SCH (08:24)
[2018-10-06] MEDS: METOPROLOL 50 MG TAB PO SCH ×2 (08:25→20:13)
[2018-10-06] MEDS: LOSARTAN 25 MG TAB PO SCH (08:25)
[2018-10-06] MEDS: ENOXAPARIN 30 MG/0.3 ML SYG SC SCH (08:27)
[2018-10-06 08:45] VITALS: BP 118/83; PULSE 67
[2018-10-06] MEDS: ALBUTEROL/IPRATROPIUM (NEB) 3 ML AMP HHN SCH ×3 (09:20→20:49)
--- NOTE | 2018-10-06 12:21 | PN ---
Date/Time of Note Date/Time of Note DATE: 10/06/18 TIME: 12:21 Assessment/Plan VTE Prophylaxis Risk score (from [facility])>0 risk: 2 SCD applied (from [facility] [place] No SCD contraindicated: other Pharmacological prophylaxis: LMWH Lines/Catheters IV Catheter Type (from [facility]): Saline Lock Urinary Cath still in place: Yes Reason Cath still needed: skin wounds contaminated by urine Assessment/Plan Hospital Course -Sepsis with gram-negative rods bacteremia secondary to urinary tract infection, continue antibiotics per ID. Dr. Maya is following in infection disease consultation. -Acute kidney injury and hyponatremia secondary to dehydration, resolving. Continue IV fluids. -GERD -Dyslipidemia -BPH -Chronic encephalopathy -Schizophrenia -Dysphagia with G-tube, patient is currently able to tolerate diet -Rojas catheter present on admission -History of fracture of left tibia and fibula Result Diagram: 10/04/1842310/04/18423 Subjective 24 Hr Interval Summary Free Text/Dictation Patient has no complaints Exam/Review of Systems Exam Vitals Vital Signs Date Temp Pulse Resp B/P (MAP) Pulse Ox O2 O2 Flow FiO2 Time Delivery Rate 10/06/18 86 18 99 21 09:21 10/06/18 98.0 118/83 Room Air 08:45 (95) Intake and Output 10/05/18 10/05/18 10/06/18 1515:00 23:00 07:00 IntakeIntake Total 1360 ml 750 ml 1520 ml OutputOutput Total 1100 ml 1800 ml 3050 ml BalanceBalance 260 ml -1050 ml -1530 ml Constitutional: well developed Head: normocephalic, atraumatic Neck: supple Respiratory: diminished breath sounds Cardiovascular: regular rate and rhythm Gastrointestinal: soft, non-tender Extremities: normal pulses Medications Medication Current Medications Enoxaparin Sodium (Lovenox) 30 mg DAILY SC Last administered on 10/06/18at 08:27; Admin Dose 30 MG; Start 09/27/18 at 09:00 Ondansetron HCl (Zofran Inj) 4 mg Q6H PRN IV NAUSEA AND/OR VOMITING; Start 09/27/18 at 03:00 Acetaminophen (Tylenol Tab) 650 mg Q4H PRN PO MILD PAIN(1-3)OR ELEVATED TEMP Last administered on 09/28/18at 08:03; Admin Dose 650 MG; Start 09/28/18 at 05:00 Albuterol/ Ipratropium (Duoneb) 3 ml Q6HWA RESP THERAPY HHN Last administered on 10/06/18 09:20; Admin Dose 3 ML; Start 09/30/18 at 20:00 Losartan Potassium (Cozaar) 12.5 mg DAILY PO Last administered on 10/06/18 08:25; Admin Dose 12.5 MG; Start 10/03/18 at 09:00 Clonazepam (Klonopin) 1 mg TID PO Last administered on 10/06/18 08:24; Admin Dose 1 MG; Start 10/02/18 at 22:00 Docusate Sodium (Colace Liquid Cup) 50 mg DAILY PO Last administered on 09/10 08:24; Admin Dose 50 MG; Start 10/03/18 at 09:00 Famotidine (Pepcid) 20 mg BID PO Last administered on 10/06/18 08:24; Admin Dose 20 MG; Start 10/02/18 at 22:00 Folic Acid (Folic Acid) 1 mg DAILY PO Last administered on 10/06/18 08:24; Admin Dose 1 MG; Start 10/03/18 at 09:00 Metoprolol Tartrate (Lopressor) 50 mg BID PO Last administered on 10/06/18 08:25; Admin Dose 50 MG; Start 10/02/18 at 22:00 Multivitamins/ Minerals (Theragran-M) 1 tab DAILY PO Last administered on 10/06/18 08:24; Admin Dose 1 TAB; Start 10/03/18 at 09:00 Quetiapine Fumarate (Seroquel) 25 mg BID PO Last administered on 10/06/18 08:24; Admin Dose 25 MG; Start 10/02/18 at 22:00 Senna (Senokot) 1 tab QHS PO Last administered on 10/05/18 21:57; Admin Dose 1 TAB; Start 10/03/18 at 21:00 Levofloxacin/ Dextrose 150 ml @ 100 mls/hr Q24H IVPB Last administered on 10/05/18 19:54; Admin Dose 100 MLS/HR; Start 10/04/18 at 19:30; Stop 10/13/18 at 19:29 CLIFTON ROMANO Oct 06, 2018 12:21
[2018-10-06 14:28] VITALS: BP 115/72; PULSE 97; RESP 17
--- NOTE | 2018-10-06 14:51 | CONS ---
Assessment/Plan Assessment/Plan Assessment/Plan (Daily) 1. acute kidney injury due to ATN from UTI and Prerenal azotemia 2. SIRS due to UTI and bacteremia 3. Bacteremia with Blood Cx growing Enterobacter 4. H/o BPH with Urinary obstruction ,chronic indwelling curry catheter 5. H/o Chronic encephalopathy 6. H/o SChizophrenia 7. H/o G tube placement 8. H/o Fracture of left hip s/p ORIF 9. Malnourished- will get dietary consult Plan: BUN/Cr improved to 24/1.02- other electrolytes stable UO - 5.9 L/24 hr Losartan 12.5 mg PO daily , monitor K Continue MTP 50mg PO BID for BP control, will use IV hydralazine for BP control Gold bx cefepie for Enterobacter bacteremia ,Renally dose all abx and monitor electrolytes Patient is seen in collaboration with DR Rosa Zapata. Plan of care dw staff. We will follow up. Consultation Date/Type/Reason Admit Date/Time Sep 27, 2018 at 01:07 Initial Consult Date 09/27/18 Type of Consult NEPHROLOGY Reason for Consultation MANAS Requesting Provider: CORBIN GAYTAN Date/Time of Note DATE: 10/06/18 TIME: 14:51 24 HR Interval Summary Free Text/Dictation nad afebrile; resting in bed ; BUN/Cr 24/1.02; other electrolytes stable UO-5.9 L/24 HR no events overnight dw staff Exam/Review of Systems Exam Vitals Vital Signs Date Temp Pulse Resp B/P (MAP) Pulse Ox O2 O2 Flow FiO2 Time Delivery Rate 10/06/18 98.1 97 17 115/72 94 Room Air 14:28 (86) 10/06/18 21 09:21 Intake and Output 10/05/18 10/05/18 10/06/18 1515:00 23:00 07:00 IntakeIntake Total 1360 ml 750 ml 1520 ml OutputOutput Total 1100 ml 1800 ml 3050 ml BalanceBalance 260 ml -1050 ml -1530 ml Constitutional: alert, well developed Psych: nl mood/affect Head: atraumatic Eyes: nl lids, nl sclera, PERRL ENMT: nl external ears & nose Neck: non-tender Cardiovascular: nl pulses, other (S1S2) Gastrointestinal: soft, non-tender Musculoskeletal: muscle weakness Extremities: normal pulses Neurological: nl speech, confused Skin: other (NO rash note) Results Result Diagram: 10/04/184 10/04/18423 Medications Medication Current Medications Enoxaparin Sodium (Lovenox) 30 mg DAILY SC Last administered on 10/06/18 08:27; Admin Dose 30 MG; Start 09/27/18 at 09:00 Ondansetron HCl (Zofran Inj) 4 mg Q6H PRN IV NAUSEA AND/OR VOMITING; Start 09/27/18 at 03:00 Acetaminophen (Tylenol Tab) 650 mg Q4H PRN PO MILD PAIN(1-3)OR ELEVATED TEMP Last administered on 09/28/18 08:03; Admin Dose 650 MG; Start 09/28/18 at 05:00 Albuterol/ Ipratropium (Duoneb) 3 ml Q6HWA RESP THERAPY HHN Last administered on 10/06/18 09:20; Admin Dose 3 ML; Start 09/30/18 at 20:00 Losartan Potassium (Cozaar) 12.5 mg DAILY PO Last administered on 10/06/18 08:25; Admin Dose 12.5 MG; Start 10/03/18 at 09:00 Clonazepam (Klonopin) 1 mg TID PO Last administered on 10/06/18 13:40; Admin Dose 1 MG; Start 10/02/18 at 22:00 Docusate Sodium (Colace Liquid Cup) 50 mg DAILY PO Last administered on 10/06/18 08:24; Admin Dose 50 MG; Start 10/03/18 at 09:00 Famotidine (Pepcid) 20 mg BID PO Last administered on 10/06/18 08:24; Admin Dose 20 MG; Start 10/02/18 at 22:00 Folic Acid (Folic Acid) 1 mg DAILY PO Last administered on 10/06/18 08:24; Admin Dose 1 MG; Start 10/03/18 at 09:00 Metoprolol Tartrate (Lopressor) 50 mg BID PO Last administered on 10/06/18 08:25; Admin Dose 50 MG; Start 10/02/18 at 22:00 Multivitamins/ Minerals (Theragran-M) 1 tab DAILY PO Last administered on 10/06/18 08:24; Admin Dose 1 TAB; Start 10/03/18 at 09:00 Quetiapine Fumarate (Seroquel) 25 mg BID PO Last administered on 10/06/18at 08:24; Admin Dose 25 MG; Start 10/02/18 at 22:00 Senna (Senokot) 1 tab QHS PO Last administered on 10/05/18at 21:57; Admin Dose 1 TAB; Start 10/03/18 at 21:00 Levofloxacin/ Dextrose 150 ml @ 100 mls/hr Q24H IVPB Last administered on 10/05/18at 19:54; Admin Dose 100 MLS/HR; Start 10/04/18 at 19:30; Stop 10/13/18 at 19:29 CORBIN GAYTAN Oct 06, 2018 14:51
[2018-10-06] MEDS: LEVOFLOXACIN 750MG/D5W (PMX) 150 ML IVPB SCH (19:00)
[2018-10-06 19:40] VITALS: BP 125/77; PULSE 98; RESP 18
[2018-10-06] MEDS: SENNA TAB PO SCH (20:12)
--- NOTE | 2018-10-06 23:11 | CONS ---
Assessment/Plan Assessment/Plan Hospital Course (Demo Recall) assessment/impression - s/p severe sepsis due to bacteremia and UTI, improved - s/p persistent bacteremia due to enterobacter 09/26 and 09/27, latest blood cultures on 09/29/2018 are negative - s/p UTI due to enterbacter. Rojas catheter was changed at [facility] - [facility], has an indwelling Rojas at [facility] - [facility], improved - chronic encephalopathy, talks non-sense only - h/o dysphagia, improved - h/o GT placement but Pt takes pureed diet - h/o fracture of L hip h/o ORIF - h/o surgeries of LLE and L shoulder - intertrigo of groin area - cough, possible aspiration. CXR on 10/01/2018 showed atelectasis vs minimal infiltrate at the periphery of JUSTINO. Improved recommendations - continue IV levofloxacin, suggested end date: 10/13/2018. Pt previously took cefepime (09/26/2018-10/04/2018) - please check weekly CBC and BMP while Pt's on IV antibiotic at [facility] management d/w Pt's RN Consultation Date/Type/Reason Admit Date/Time Sep 27, 2018 at 01:07 Initial Consult Date 09/27/18 Type of Consult ID Requesting Provider: CORBIN GAYTAN Date/Time of Note DATE: 10/06/18 TIME: 23:09 24 HR Interval Summary Subjective hx not possible: pt non-verbal, other (cnfused) Constitutional: disoriented Exam/Review of Systems Exam Vitals Vital Signs Date Temp Pulse Resp B/P (MAP) Pulse Ox O2 O2 Flow FiO2 Time Delivery Rate 10/06/18 90 20 98 21 20:49 10/06/18 98.8 125/77 Room Air 19:40 (93) Intake and Output 10/05/18 10/05/18 10/06/18 1515:00 23:00 07:00 IntakeIntake Total 1360 ml 750 ml 1520 ml OutputOutput Total 1100 ml 1800 ml 3050 ml BalanceBalance 260 ml -1050 ml -1530 ml Constitutional: non-verbal (cnfused, talking non-sense) Psych: confusion Head: normocephalic, atraumatic Eyes: nl conjunctiva, nl lids ENMT: nl external ears & nose, nl nasal mucosa & septum, mucosa pink and moist Neck: other (not swollen) Respiratory: clear to auscultation, normal air movement Cardiovascular: regular rate and rhythm, nl pulses; No edema Gastrointestinal: soft, other (GT under the abdominal binder); No distended, No tender Musculoskeletal: No swelling Extremities: No edema Neurological: confused Skin: nl turgor Results Result Diagram: 10/04/1842310/04/18423 Medications Medication Current Medications Enoxaparin Sodium (Lovenox) 30 mg DAILY SC Last administered on 10/06/18 08:27; Admin Dose 30 MG; Start 09/27/18 at 09:00 Ondansetron HCl (Zofran Inj) 4 mg Q6H PRN IV NAUSEA AND/OR VOMITING; Start 09/27/18 at 03:00 Acetaminophen (Tylenol Tab) 650 mg Q4H PRN PO MILD PAIN(1-3)OR ELEVATED TEMP Last administered on 09/28/18 08:03; Admin Dose 650 MG; Start 09/28/18 at 05:00 Albuterol/ Ipratropium (Duoneb) 3 ml Q6HWA RESP THERAPY HHN Last administered on 10/06/18 20:49; Admin Dose 3 ML; Start 09/30/18 at 20:00 Losartan Potassium (Cozaar) 12.5 mg DAILY PO Last administered on 10/06/18 08:25; Admin Dose 12.5 MG; Start 10/03/18 at 09:00 Clonazepam (Klonopin) 1 mg TID PO Last administered on 10/06/18 20:13; Admin Dose 1 MG; Start 10/02/18 at 22:00 Docusate Sodium (Colace Liquid Cup) 50 mg DAILY PO Last administered on 10/06/18 08:24; Admin Dose 50 MG; Start 10/03/18 at 09:00 Famotidine (Pepcid) 20 mg BID PO Last administered on 10/06/18 20:12; Admin Dose 20 MG; Start 10/02/18 at 22:00 Folic Acid (Folic Acid) 1 mg DAILY PO Last administered on 10/06/18 08:24; Admin Dose 1 MG; Start 10/03/18 at 09:00 Metoprolol Tartrate (Lopressor) 50 mg BID PO Last administered on 10/06/18 20:13; Admin Dose 50 MG; Start 10/02/18 at 22:00 Multivitamins/ Minerals (Theragran-M) 1 tab DAILY PO Last administered on 10/06/18 08:24; Admin Dose 1 TAB; Start 10/03/18 at 09:00 Quetiapine Fumarate (Seroquel) 25 mg BID PO Last administered on 10/06/18 20:13; Admin Dose 25 MG; Start 10/02/18 at 22:00 Senna (Senokot) 1 tab QHS PO Last administered on 10/06/18 20:12; Admin Dose 1 TAB; Start 10/03/18 at 21:00 Levofloxacin/ Dextrose 150 ml @ 100 mls/hr Q24H IVPB Last administered on 10/06/18 19:00; Admin Dose 100 MLS/HR; Start 10/04/18 at 19:30; Stop 10/13/18 at 19:29 DEWAYNE DOUGLAS M.D. Oct 06, 2018 23:11
--- NOTE | 2018-10-06 23:14 | CONS ---
Assessment/Plan Assessment/Plan Hospital Course (Demo Recall) assessment/impression - s/p severe sepsis due to bacteremia and UTI, improved - s/p persistent bacteremia due to enterobacter 09/26 and 09/27, latest blood cultures on 09/29/2018 are negative - s/p UTI due to enterbacter. Rojas catheter was changed at [facility] - [facility], has an indwelling Rojas at [facility], improved - chronic encephalopathy, talks non-sense only - h/o dysphagia, improved - h/o GT placement but Pt takes pureed diet - h/o fracture of L hip h/o ORIF - h/o surgeries of LLE and L shoulder - intertrigo of groin area - cough, possible aspiration. CXR on 10/01/2018 showed atelectasis vs minimal infiltrate at the periphery of JUSTINO REVISED recommendations - continue IV levofloxacin, suggested end date: 10/13/2018. Pt previously took cefepime (09/26/2018-10/04/2018) - please check weekly CBC and BMP while Pt's on IV antibiotic at [facility] - I recommend speech eval because Pt seems coughing as a result of aspiration (he drinks a large amount of water and eats all the meals, concerning for aspir ation) management d/w Pt's RN Consultation Date/Type/Reason Admit Date/Time Sep 27, 2018 at 01:07 Initial Consult Date 09/27/18 Type of Consult ID Requesting Provider: CORBIN GAYTAN Date/Time of Note DATE: 10/06/18 TIME: 23:12 Exam/Review of Systems Exam Vitals Vital Signs Date Temp Pulse Resp B/P (MAP) Pulse Ox O2 O2 Flow FiO2 Time Delivery Rate 10/06/18 90 20 98 21 20:49 10/06/18 98.8 125/77 Room Air 19:40 (93) Intake and Output 10/05/18 10/05/18 10/06/18 1515:00 23:00 07:00 IntakeIntake Total 1360 ml 750 ml 1520 ml OutputOutput Total 1100 ml 1800 ml 3050 ml BalanceBalance 260 ml -1050 ml -1530 ml Results Result Diagram: 10/04/18 0424 10/04/18 0424 Medications Medication Current Medications Enoxaparin Sodium (Lovenox) 30 mg DAILY SC Last administered on 10/06/18 08:27; Admin Dose 30 MG; Start 09/27/18 at 09:00 Ondansetron HCl (Zofran Inj) 4 mg Q6H PRN IV NAUSEA AND/OR VOMITING; Start at 03:00 Acetaminophen (Tylenol Tab) 650 mg Q4H PRN PO MILD PAIN(1-3)OR ELEVATED TEMP Last administered on 09/28/18 08:03; Admin Dose 650 MG; Start 09/28/18 at 05:00 Albuterol/ Ipratropium (Duoneb) 3 ml Q6HWA RESP THERAPY HHN Last administered on 10/06/18 20:49; Admin Dose 3 ML; Start 09/30/18 at 20:00 Losartan Potassium (Cozaar) 12.5 mg DAILY PO Last administered on 10/06/18 08:25; Admin Dose 12.5 MG; Start 10/03/18 at 09:00 Clonazepam (Klonopin) 1 mg TID PO Last administered on 10/06/18 20:13; Admin Dose 1 MG; Start 10/02/18 at 22:00 Docusate Sodium (Colace Liquid Cup) 50 mg DAILY PO Last administered on 10/06/18 08:24; Admin Dose 50 MG; Start 10/03/18 at 09:00 Famotidine (Pepcid) 20 mg BID PO Last administered on 10/06/18 20:12; Admin Dose 20 MG; Start 10/02/18 at 22:00 Folic Acid (Folic Acid) 1 mg DAILY PO Last administered on 10/06/18 08:24; Admin Dose 1 MG; Start 10/03/18 at 09:00 Metoprolol Tartrate (Lopressor) 50 mg BID PO Last administered on 10/06/18 2 0:13; Admin Dose 50 MG; Start 10/02/18 at 22:00 Multivitamins/ Minerals (Theragran-M) 1 tab DAILY PO Last administered on 10/06/18 08:24; Admin Dose 1 TAB; Start 10/03/18 at 09:00 Quetiapine Fumarate (Seroquel) 25 mg BID PO Last administered on 10/06/18 20:13; Admin Dose 25 MG; Start 10/02/18 at 22:00 Senna (Senokot) 1 tab QHS PO Last administered on 10/06/18at 20:12; Admin Dose 1 TAB; Start 10/03/18 at 21:00 Levofloxacin/ Dextrose 150 ml @ 100 mls/hr Q24H IVPB Last administered on 10/06/18at 19:00; Admin Dose 100 MLS/HR; Start 10/04/18 at 19:30; Stop 10/13/18 at 19:29 DEWAYNE DOUGLAS M.D. Oct 06, 2018 23:14
[2018-10-07 02:05] VITALS: BP 124/81; PULSE 96; RESP 18
[2018-10-07] MEDS: ALBUTEROL/IPRATROPIUM (NEB) 3 ML AMP HHN SCH ×3 (07:52→20:06)
[2018-10-07] MEDS: clonAZEPAM 0.5 MG TAB PO SCH ×3 (08:17→20:18)
[2018-10-07] MEDS: MULTIVITAMINS/MINERALS TAB PO SCH (08:17)
[2018-10-07] MEDS: FOLIC ACID 1 MG TAB PO SCH (08:17)
[2018-10-07] MEDS: QUETIAPINE 25 MG TAB PO SCH ×2 (08:17→20:18)
[2018-10-07] MEDS: DOCUSATE SODIUM 10 MG/ML (10ML CUP) PO SCH (08:17)
[2018-10-07] MEDS: FAMOTIDINE 20 MG TAB PO SCH ×2 (08:17→20:18)
[2018-10-07] MEDS: METOPROLOL 50 MG TAB PO SCH ×2 (08:18→20:19)
[2018-10-07] MEDS: ENOXAPARIN 30 MG/0.3 ML SYG SC SCH (08:18)
[2018-10-07] MEDS: LOSARTAN 25 MG TAB PO SCH (08:20)
[2018-10-07 08:37] VITALS: BP 130/75; PULSE 92; RESP 17
[2018-10-07 13:47] VITALS: BP 110/77; PULSE 96
--- NOTE | 2018-10-07 14:12 | PN ---
Date/Time of Note Date/Time of Note DATE: 10/07/18 TIME: 14:12 Assessment/Plan VTE Prophylaxis Risk score (from [facility])>0 risk: 2 SCD applied (from [facility] [place]): No SCD contraindicated: other Pharmacological prophylaxis: LMWH Lines/Catheters IV Catheter Type (from [facility] Saline Lock Urinary Cath still in place: Yes Reason Cath still needed: skin wounds contaminated by urine Assessment/Plan Hospital Course -Sepsis with gram-negative rods bacteremia secondary to urinary tract infection, continue antibiotics per ID. Dr. Maya is following in infection disease consultation. -Acute kidney injury and hyponatremia secondary to dehydration, resolving. Continue IV fluids. -GERD -Dyslipidemia -BPH -Chronic encephalopathy -Schizophrenia -Dysphagia with G-tube, patient is currently able to tolerate diet -Rojas catheter present on admission -History of fracture of left tibia and fibula Result Diagram: 10/07/1842110/07/18421 Results 24hrs Laboratory Tests Test 10/07/18 04:22 White Blood Count 10.4 Red Blood Count 3.37 L Hemoglobin 10.4 L Hematocrit 32.1 L Mean Corpuscular Volume 95.3 Mean Corpuscular Hemoglobin 30.9 Mean Corpuscular Hemoglobin Concent 32.4 Red Cell Distribution Width 15.1 H Platelet Count 440 #H Mean Platelet Volume 9.8 Immature Granulocytes % 1.000 H Neutrophils % 80.5 H Lymphocytes % 11.3 L Monocytes % 5.8 Eosinophils % 0.9 Basophils % 0.5 Nucleated Red Blood Cells % 0.0 Immature Granulocytes # 0.100 H Neutrophils # 8.4 H Lymphocytes # 1.2 Monocytes # 0.6 Eosinophils # 0.1 Basophils # 0.1 Nucleated Red Blood Cells # 0.0 Sodium Level 137 Potassium Level 4.5 Chloride Level 98 Carbon Dioxide Level 30 Anion Gap 9 Blood Urea Nitrogen 26 H Creatinine 1.14 Est Glomerular Filtrat Rate mL/min > 60 Glucose Level 98 Calcium Level 9.8 Subjective 24 Hr Interval Summary Free Text/Dictation Patient has no complaints Exam/Review of Systems Exam Vitals Vital Signs Date Temp Pulse Resp B/P (MAP) Pulse Ox O2 O2 Flow FiO2 Time Delivery Rate 10/07/18 98.6 96 110/77 92 Room Air 13:47 (88) 10/07/18 17 08:37 10/06/18 21 20:49 Intake and Output 10/06/18 10/06/18 10/07/18 1515:00 23:00 07:00 IntakeIntake Total 1280 ml 2990 ml 1800 ml OutputOutput Total 2400 ml 2400 ml 3250 ml BalanceBalance -1120 ml 590 ml -1450 ml Constitutional: well developed Head: normocephalic, atraumatic Neck: supple Respiratory: diminished breath sounds Cardiovascular: regular rate and rhythm Gastrointestinal: soft, non-tender Extremities: normal pulses Results Results 24hrs Laboratory Tests Test 10/07/18 04:22 White Blood Count 10.4 Red Blood Count 3.37 L Hemoglobin 10.4 L Hematocrit 32.1 L Mean Corpuscular Volume 95.3 Mean Corpuscular Hemoglobin 30.9 Mean Corpuscular Hemoglobin Concent 32.4 Red Cell Distribution Width 15.1 H Platelet Count 440 #H Mean Platelet Volume 9.8 Immature Granulocytes % 1.000 H Neutrophils % 80.5 H Lymphocytes % 11.3 L Monocytes % 5.8 Eosinophils % 0.9 Basophils % 0.5 Nucleated Red Blood Cells % 0.0 Immature Granulocytes # 0.100 H Neutrophils # 8.4 H Lymphocytes # 1.2 Monocytes # 0.6 Eosinophils # 0.1 Basophils # 0.1 Nucleated Red Blood Cells # 0.0 Sodium Level 137 Potassium Level 4.5 Chloride Level 98 Carbon Dioxide Level 30 Anion Gap 9 Blood Urea Nitrogen 26 H Creatinine 1.14 Est Glomerular Filtrat Rate mL/min > 60 Glucose Level 98 Calcium Level 9.8 Medications Medication Current Medications Enoxaparin Sodium (Lovenox) 30 mg DAILY SC Last administered on 10/07/18at 08 :18; Admin Dose 30 MG; Start 09/27/18 at 09:00 Ondansetron HCl (Zofran Inj) 4 mg Q6H PRN IV NAUSEA AND/OR VOMITING; Start 09/27/18 at 03:00 Acetaminophen (Tylenol Tab) 650 mg Q4H PRN PO MILD PAIN(1-3)OR ELEVATED TEMP Last administered on 09/28/18at 08:03; Admin Dose 650 MG; Start 09/28/18 at 05:00 Albuterol/ Ipratropium (Duoneb) 3 ml Q6HWA RESP THERAPY HHN Last administered on 10/07/18at 07:52; Admin Dose 3 ML; Start 09/30/18 at 20:00 Losartan Potassium (Cozaar) 12.5 mg DAILY PO Last administered on 10/07/18 08:20; Admin Dose 12.5 MG; Start 10/03/18 at 09:00 Clonazepam (Klonopin) 1 mg TID PO Last administered on 10/07/18 13:27; Admin Dose 1 MG; Start 10/02/18 at 22:00 Docusate Sodium (Colace Liquid Cup) 50 mg DAILY PO Last administered on 10/07/18 08:17; Admin Dose 50 MG; Start 10/03/18 at 09:00 Famotidine (Pepcid) 20 mg BID PO Last administered on 10/07/18 08:17; Admin Dose 20 MG; Start 10/02/18 at 22:00 Folic Acid (Folic Acid) 1 mg DAILY PO Last administered on 10/07/18 08:17; Admin Dose 1 MG; Start 10/03/18 at 09:00 Metoprolol Tartrate (Lopressor) 50 mg BID PO Last administered on 10/07/18 08:18; Admin Dose 50 MG; Start 10/02/18 at 22:00 Multivitamins/ Minerals (Theragran-M) 1 tab DAILY PO Last administered on 10/07/18 08:17; Admin Dose 1 TAB; Start 10/03/18 at 09:00 Quetiapine Fumarate (Seroquel) 25 mg BID PO Last administered on 10/07/18 08:17; Admin Dose 25 MG; Start 10/02/18 at 22:00 Senna (Senokot) 1 tab QHS PO Last administered on 10/06/18 20:12; Admin Dose 1 TAB; Start 10/03/18 at 21:00 Levofloxacin/ Dextrose 150 ml @ 100 mls/hr Q24H IVPB Last administered on 10/06/18 19:00; Admin Dose 100 MLS/HR; Start 10/04/18 at 19:30; Stop 10/13/18 at 19:29 CLIFTON ROMANO Oct 07, 2018 14:12
--- NOTE | 2018-10-07 16:25 | CONS ---
Assessment/Plan Assessment/Plan Hospital Course (Demo Recall) assessment/impression - s/p severe sepsis due to bacteremia and UTI, improved - s/p persistent bacteremia due to enterobacter 09/26 and 09/27, latest blood cultures on 09/29/2018 are negative - s/p UTI due to enterbacter. Rojas catheter was changed at [facility] - BPH, has an indwelling Rojas at - [facility], improved - chronic encephalopathy, talks non-sense only - h/o dysphagia, improved - h/o GT placement but Pt takes pureed diet - h/o fracture of L hip h/o ORIF - h/o surgeries of LLE and L shoulder - intertrigo of groin area - cough, possible aspiration. CXR on 10/01/2018 showed atelectasis vs minimal infiltrate at the periphery of JUSTINO Recommendations - continue IV levofloxacin, suggested end date: 10/13/2018. Pt previously took cefepime (09/26/2018-10/04/2018) - please check weekly CBC and BMP while Pt's on IV antibiotic at - follow-up video swallow Management d/w Pt's KAROL Portillo and with Dr. Friedman Consultation Date/Type/Reason Admit Date/Time Sep 27, 2018 at 01:07 Initial Consult Date 09/27/18 Type of Consult Infectious Disease Requesting Provider: CORBIN GAYTAN Date/Time of Note DATE: 10/07/18 TIME: 16:24 24 HR Interval Summary Free Text/Dictation Seen by ST and pt is going for video swallow tomorrow per d/w nursing. Denies pain. ROS difficult to obtain d/t baseline confusion and mostly nonsensical speech. Subjective hx not possible: other Exam/Review of Systems Exam Vitals Vital Signs Date Temp Pulse Resp B/P (MAP) Pulse Ox O2 O2 Flow FiO2 Time Delivery Rate 10/07/18 98.6 96 110/77 92 Room Air 13:47 (88) 10/07/18 17 08:37 10/06/18 21 20:49 Intake and Output 10/06/18 10/06/18 10/07/18 1515:00 23:00 07:00 IntakeIntake Total 1280 ml 2990 ml 1800 ml OutputOutput Total 2400 ml 2400 ml 3250 ml BalanceBalance -1120 ml 590 ml -1450 ml Constitutional: alert, well developed, other (nonsensical speech) Psych: confusion Head: normocephalic, atraumatic Eyes: nl conjunctiva, nl lids, nl sclera ENMT: nl external ears & nose, nl nasal mucosa & septum Neck: other (non-swollen) Respiratory: clear to auscultation, normal air movement Cardiovascular: regular rate and rhythm, nl pulses; No edema Gastrointestinal: soft, non-tender, other (G-tube clamped c/d/i); No distended Genitourinary - Male: other (Rojas in place with clear yellow urine) Musculoskeletal: nl extremities to inspection Extremities: normal pulses; No edema Neurological: confused Skin: nl turgor Results Result Diagram: 10/07/1842110/07/182 Results 24hrs Laboratory Tests Test 10/07/18 04:22 White Blood Count 10.4 Red Blood Count 3.37 L Hemoglobin 10.4 L Hematocrit 32.1 L Mean Corpuscular Volume 95.3 Mean Corpuscular Hemoglobin 30.9 Mean Corpuscular Hemoglobin Concent 32.4 Red Cell Distribution Width 15.1 H Platelet Count 440 #H Mean Platelet Volume 9.8 Immature Granulocytes % 1.000 H Neutrophils % 80.5 H Lymphocytes % 11.3 L Monocytes % 5.8 Eosinophils % 0.9 Basophils % 0.5 Nucleated Red Blood Cells % 0.0 Immature Granulocytes # 0.100 H Neutrophils # 8.4 H Lymphocytes # 1.2 Monocytes # 0.6 Eosinophils # 0.1 Basophils # 0.1 Nucleated Red Blood Cells # 0.0 Sodium Level 137 Potassium Level 4.5 Chloride Level 98 Carbon Dioxide Level 30 Anion Gap 9 Blood Urea Nitrogen 26 H Creatinine 1.14 Est Glomerular Filtrat Rate mL/min > 60 Glucose Level 98 Calcium Level 9.8 Medications Medication Current Medications Enoxaparin Sodium (Lovenox) 30 mg DAILY SC Last administered on 10/07/18at 08:18; Admin Dose 30 MG; Start 09/27/18 at 09:00 Ondansetron HCl (Zofran Inj) 4 mg Q6H PRN IV NAUSEA AND/OR VOMITING; Start 09/27/18 at 03:00 Acetaminophen (Tylenol Tab) 650 mg Q4H PRN PO MILD PAIN(1-3)OR ELEVATED TEMP Last administered on 09/28/18at 08:03; Admin Dose 650 MG; Start 09/28/18 at 05:00 Albuterol/ Ipratropium (Duoneb) 3 ml Q6HWA RESP THERAPY HHN Last administered on 10/07/18 14:29; Admin Dose 3 ML; Start 09/30/18 at 20:00 Losartan Potassium (Cozaar) 12.5 mg DAILY PO Last administered on 10/07/18 08:20; Admin Dose 12.5 MG; Start 10/03/18 at 09:00 Clonazepam (Klonopin) 1 mg TID PO Last administered on 10/07/18 13:27; Admin Dose 1 MG; Start 10/02/18 at 22:00 Docusate Sodium (Colace Liquid Cup) 50 mg DAILY PO Last administered on 10/07/18 08:17; Admin Dose 50 MG; Start 10/03/18 at 09:00 Famotidine (Pepcid) 20 mg BID PO Last administered on 10/07/18 08:17; Admin Dose 20 MG; Start 10/02/18 at 22:00 Folic Acid (Folic Acid) 1 mg DAILY PO Last administered on 10/07/18 08:17; Admin Dose 1 MG; Start 10/03/18 at 09:00 Metoprolol Tartrate (Lopressor) 50 mg BID PO Last administered on 10/07/18 08:18; Admin Dose 50 MG; Start 10/02/18 at 22:00 Multivitamins/ Minerals (Theragran-M) 1 tab DAILY PO Last administered on 10/07/18 08:17; Admin Dose 1 TAB; Start 10/03/18 at 09:00 Quetiapine Fumarate (Seroquel) 25 mg BID PO Last administered on 10/07/18 08:17; Admin Dose 25 MG; Start 10/02/18 at 22:00 Senna (Senokot) 1 tab QHS PO Last administered on 10/06/18 20:12; Admin Dose 1 TAB; Start 10/03/18 at 21:00 Levofloxacin/ Dextrose 150 ml @ 100 mls/hr Q24H IVPB Last administered on 10/06/18 19:00; Admin Dose 100 MLS/HR; Start 10/04/18 at 19:30; Stop 10/13/18 at 19:29 ZUHAIR PHIPPS NP Oct 07, 2018 16:25
--- NOTE | 2018-10-07 17:25 | CONS ---
Assessment/Plan Assessment/Plan Assessment/Plan (Daily) 1. acute kidney injury due to ATN from UTI and Prerenal azotemia 2. SIRS due to UTI and bacteremia 3. Bacteremia with Blood Cx growing Enterobacter 4. H/o BPH with Urinary obstruction ,chronic indwelling curry catheter 5. H/o Chronic encephalopathy 6. H/o SChizophrenia 7. H/o G tube placement 8. H/o Fracture of left hip s/p ORIF 9. Malnourished- will get dietary consult Plan: BUN/Cr improved to 26/1.14- other electrolytes stable Losartan 12.5 mg PO daily , monitor K , IV levaquin 50mg IV daily , Renally dose all abx and Monitor electrolytes Continue MTP 50mg PO BID for BP control, will use IV hydralazine for BP control will follow up Consultation Date/Type/Reason Admit Date/Time Sep 27, 2018 at 01:07 Initial Consult Date 09/27/18 Type of Consult NEPHROLOGY Requesting Provider: CORBIN GAYTAN Date/Time of Note DATE: 10/07/18 TIME: 17:25 Exam/Review of Systems Exam Vitals Vital Signs Date Temp Pulse Resp B/P (MAP) Pulse Ox O2 O2 Flow FiO2 Time Delivery Rate 10/07/18 98.6 96 110/77 92 Room Air 13:47 (88) 10/07/18 17 08:37 10/06/18 21 20:49 Intake and Output 10/06/18 10/06/18 10/07/18 1515:00 23:00 07:00 IntakeIntake Total 1280 ml 2990 ml 1800 ml OutputOutput Total 2400 ml 2400 ml 3250 ml BalanceBalance -1120 ml 590 ml -1450 ml Exam Constitutional: awake Head: normocephalic, atraumatic Respiratory: clear to auscultation, normal air movement Cardiovascular: regular rate and rhythm, nl pulses; Gastrointestinal: soft, non-tender, other (GT); No distended, No tender Genitourinary - Male: other (FC) Musculoskeletal: other (L hip and LLE have well healed surgical scars) Extremities: No edema Neurological: Non focal Results Result Diagram: 10/07/18 0422 10/07/18 0422 Results 24hrs Laboratory Tests Test 10/07/18 04:22 White Blood Count 10.4 Red Blood Count 3.37 L Hemoglobin 10.4 L Hematocrit 32.1 L Mean Corpuscular Volume 95.3 Mean Corpuscular Hemoglobin 30.9 Mean Corpuscular Hemoglobin Concent 32.4 Red Cell Distribution Width 15.1 H Platelet Count 440 #H Mean Platelet Volume 9.8 Immature Granulocytes % 1.000 H Neutrophils % 80.5 H Lymphocytes % 11.3 L Monocytes % 5.8 Eosinophils % 0.9 Basophils % 0.5 Nucleated Red Blood Cells % 0.0 Immature Granulocytes # 0.100 H Neutrophils # 8.4 H Lymphocytes # 1.2 Monocytes # 0.6 Eosinophils # 0.1 Basophils # 0.1 Nucleated Red Blood Cells # 0.0 Sodium Level 137 Potassium Level 4.5 Chloride Level 98 Carbon Dioxide Level 30 Anion Gap 9 Blood Urea Nitrogen 26 H Creatinine 1.14 Est Glomerular Filtrat Rate mL/min > 60 Glucose Level 98 Calcium Level 9.8 Medications Medication Current Medications Enoxaparin Sodium (Lovenox) 30 mg DAILY SC Last administered on 10/07/18 08:18; Admin Dose 30 MG; Start 09/27/18 at 09:00 Ondansetron HCl (Zofran Inj) 4 mg Q6H PRN IV NAUSEA AND/OR VOMITING; Start 09/27/18 at 03:00 Acetaminophen (Tylenol Tab) 650 mg Q4H PRN PO MILD PAIN(1-3)OR ELEVATED TEMP Last administered on 09/28/18 08:03; Admin Dose 650 MG; Start 09/28/18 at 05:00 Albuterol/ Ipratropium (Duoneb) 3 ml Q6HWA RESP THERAPY HHN Last administered on 10/07/18 14:29; Admin Dose 3 ML; Start 09/30/18 at 20:00 Losartan Potassium (Cozaar) 12.5 mg DAILY PO Last administered on 10/07/18 08:20; Admin Dose 12.5 MG; Start 10/03/18 at 09:00 Clonazepam (Klonopin) 1 mg TID PO Last administered on 10/07/18 13:27; Admin Dose 1 MG; Start 10/02/18 at 22:00 Docusate Sodium (Colace Liquid Cup) 50 mg DAILY PO Last administered on 10/07/18 08:17; Admin Dose 50 MG; Start 10/03/18 at 09:00 Famotidine (Pepcid) 20 mg BID PO Last administered on 10/07/18 08:17; Admin Dose 20 MG; Start 10/02/18 at 22:00 Folic Acid (Folic Acid) 1 mg DAILY PO Last administered on 10/07/18 08:17; Admin Dose 1 MG; Start 10/03/18 at 09:00 Metoprolol Tartrate (Lopressor) 50 mg BID PO Last administered on 10/07/18 08:18; Admin Dose 50 MG; Start 10/02/18 at 22:00 Multivitamins/ Minerals (Theragran-M) 1 tab DAILY PO Last administered on 10/07/18 08:17; Admin Dose 1 TAB; Start 10/03/18 at 09:00 Quetiapine Fumarate (Seroquel) 25 mg BID PO Last administered on 10/07/18 08:17; Admin Dose 25 MG; Start 10/02/18 at 22:00 Senna (Senokot) 1 tab QHS PO Last administered on 10/06/18 20:12; Admin Dose 1 TAB; Start 10/03/18 at 21:00 Levofloxacin/ Dextrose 150 ml @ 100 mls/hr Q24H IVPB Last administered on 10/06/18 19:00; Admin Dose 100 MLS/HR; Start 10/04/18 at 19:30; Stop 10/13/18 at 19:29 MARCOS MOODY MD Oct 07, 2018 17:25
[2018-10-07 20:00] VITALS: BP 116/78; PULSE 97; RESP 18
[2018-10-07] MEDS: LEVOFLOXACIN 750MG/D5W (PMX) 150 ML IVPB SCH (20:16)
[2018-10-07] MEDS: SENNA TAB PO SCH (20:18)
[2018-10-08 01:21] VITALS: BP 114/78; PULSE 95; RESP 16
[2018-10-08 08:06] VITALS: BP 115/77; PULSE 89; RESP 17
[2018-10-08] MEDS: FAMOTIDINE 20 MG TAB PO SCH (08:08)
[2018-10-08] MEDS: MULTIVITAMINS/MINERALS TAB PO SCH (08:08)
[2018-10-08] MEDS: clonAZEPAM 0.5 MG TAB PO SCH ×2 (08:08→14:45)
[2018-10-08] MEDS: FOLIC ACID 1 MG TAB PO SCH (08:08)
[2018-10-08] MEDS: DOCUSATE SODIUM 10 MG/ML (10ML CUP) PO SCH (08:08)
[2018-10-08] MEDS: LOSARTAN 25 MG TAB PO SCH (08:08)
[2018-10-08] MEDS: ENOXAPARIN 30 MG/0.3 ML SYG SC SCH (08:08)
[2018-10-08] MEDS: METOPROLOL 50 MG TAB PO SCH (08:09)
[2018-10-08] MEDS: QUETIAPINE 25 MG TAB PO SCH (08:10)
[2018-10-08] MEDS: ALBUTEROL/IPRATROPIUM (NEB) 3 ML AMP HHN SCH ×2 (08:45→14:00)
--- NOTE | 2018-10-08 13:50 | CONS ---
Assessment/Plan Assessment/Plan Assessment/Plan (Daily) 1. acute kidney injury due to ATN from UTI and Prerenal azotemia 2. SIRS due to UTI and bacteremia 3. Bacteremia with Blood Cx growing Enterobacter 4. H/o BPH with Urinary obstruction ,chronic indwelling curry catheter 5. H/o Chronic encephalopathy 6. H/o SChizophrenia 7. H/o G tube placement 8. H/o Fracture of left hip s/p ORIF 9. Malnourished- will get dietary consult Plan: BUN/Cr improved to 26/1.14- other electrolytes stable Losartan 12.5 mg PO daily , monitor K , IV levaquin 50mg IV daily , Renally dose all abx and Monitor electrolytes Continue MTP 50mg PO BID for BP control, will use IV hydralazine for BP control will follow up Consultation Date/Type/Reason Admit Date/Time Sep 27, 2018 at 01:07 Initial Consult Date 09/27/18 Type of Consult NEPHROLOGY Requesting Provider: CORBIN GAYTAN Date/Time of Note DATE: 10/08/18 TIME: 13:49 Exam/Review of Systems Exam Vitals Vital Signs Date Temp Pulse Resp B/P (MAP) Pulse Ox O2 O2 Flow FiO2 Time Delivery Rate 10/08/18 98.1 89 17 115/77 93 Room Air 08:06 (90) 10/07/18 21 20:06 Intake and Output 10/07/18 10/07/18 10/08/18 1515:00 23:00 07:00 IntakeIntake Total 500 ml 2300 ml 770 ml OutputOutput Total 1400 ml 1600 ml 1600 ml BalanceBalance -900 ml 700 ml -830 ml Results Result Diagram: 10/07/18 0422 10/07/18 0422 Medications Medication Current Medications Enoxaparin Sodium (Lovenox) 30 mg DAILY SC Last administered on 10/08/18at 08:08; Admin Dose 30 MG; Start 09/27/18 at 09:00 Ondansetron HCl (Zofran Inj) 4 mg Q6H PRN IV NAUSEA AND/OR VOMITING; Start 09/27/18 at 03:00 Acetaminophen (Tylenol Tab) 650 mg Q4H PRN PO MILD PAIN(1-3)OR ELEVATED TEMP Last administered on 09/28/18at 08:03; Admin Dose 650 MG; Start 09/28/18 at 05:00 Albuterol/ Ipratropium (Duoneb) 3 ml Q6HWA RESP THERAPY HHN Last administered on 10/07/18 20:06; Admin Dose 3 ML; Start 09/30/18 at 20:00 Losartan Potassium (Cozaar) 12.5 mg DAILY PO Last administered on 10/08/18 08:08; Admin Dose 12.5 MG; Start 10/03/18 at 09:00 Clonazepam (Klonopin) 1 mg TID PO Last administered on 10/08/18 08:08; Admin Dose 1 MG; Start 10/02/18 at 22:00 Docusate Sodium (Colace Liquid Cup) 50 mg DAILY PO Last administered on 10/08/18 08:08; Admin Dose 50 MG; Start 10/03/18 at 09:00 Famotidine (Pepcid) 20 mg BID PO Last administered on 10/08/18 08:08; Admin Dose 20 MG; Start 10/02/18 at 22:00 Folic Acid (Folic Acid) 1 mg DAILY PO Last administered on 10/08/18 08:08; Admin Dose 1 MG; Start 10/03/18 at 09:00 Metoprolol Tartrate (Lopressor) 50 mg BID PO Last administered on 10/08/18 08:09; Admin Dose 50 MG; Start 10/02/18 at 22:00 Multivitamins/ Minerals (Theragran-M) 1 tab DAILY PO Last administered on 10/08/18 08:08; Admin Dose 1 TAB; Start 10/03/18 at 09:00 Quetiapine Fumarate (Seroquel) 25 mg BID PO Last administered on 10/08/18 08:10; Admin Dose 25 MG; Start 10/02/18 at 22:00 Senna (Senokot) 1 tab QHS PO Last administered on 10/07/18 20:18; Admin Dose 1 TAB; Start 10/03/18 at 21:00 Levofloxacin/ Dextrose 150 ml @ 100 mls/hr Q24H IVPB Last administered on 10/07/18 20:16; Admin Dose 100 MLS/HR; Start 10/04/18 at 19:30; Stop 10/13/18 at 19:29 MARCOS MOODY MD Oct 08, 2018 13:49
[2018-10-08 14:00] VITALS: BP 110/75; PULSE 91; RESP 18
--- NOTE | 2018-10-08 15:05 | DS ---
Date/Time of Note Date/Time of Note DATE: 10/08/18 TIME: 15:03 Discharge Summary Admission/Discharge Info Admit Date/Time Sep 27, 2018 at 01:07 Discharge Date/Time 10/08/18 Discharge Diagnosis -Sepsis with gram-negative rods bacteremia secondary to urinary tract infection, continue antibiotics per ID. Dr. Maya is following in infection disease consultation. -Acute kidney injury and hyponatremia secondary to dehydration, resolving. Continue IV fluids. -GERD -Dyslipidemia -BPH -Chronic encephalopathy -Schizophrenia -Dysphagia with G-tube, patient is currently able to tolerate diet -Rojas catheter present on admission -History of fracture of left tibia and fibula Consults Infectious disease nephrology Procedures none Hx of Present Illness Patient with encephlopathy comes in with evidence of sepsis. Hospital Course Patient with encephlopathy comes in with evidence of sepsis. Patient was treated with antibiotics and when felt to be stable, patient was discharged back to halfway. -Sepsis with gram-negative rods bacteremia secondary to urinary tract infection, continue antibiotics per ID. Dr. Maya is following in infection disease consultation. -Acute kidney injury and hyponatremia secondary to dehydration, resolving. Continue IV fluids. -GERD -Dyslipidemia -BPH -Chronic encephalopathy -Schizophrenia -Dysphagia with G-tube, patient is currently able to tolerate diet -Rojas catheter present on admission -History of fracture of left tibia and fibula Home Meds Reported Medications Quetiapine Fumarate* (Seroquel* XR) 50 Mg Tab.sr.24h, 50 ML PO DAILY, #30 TAB 09/27/18 Sennosides* (Senna Lax*) 8.6 Mg Tablet, 1 TAB GTB QHS, TAB 09/27/18 Multivitamin/Minerals* (Multivitamin w/Min* Liq) 9 Mg/15 Ml Liquid, 10 ML PO DAILY, ML 09/27/18 Multivitamin (MULTI-VITAMIN DAILY) 1 Each Tablet, 1 TAB GTB DAILY, TAB 09/27/18 Magnesium Hydroxide (Milk of Magnesia) 2,400 Mg/10 Ml Oral.susp, 15 ML GTB Q72H PRN for CONSTIPATION 09/27/18 Metoprolol Tartrate* (Lopressor*) 50 Mg Tab, 50 MG GTB BID for HTN, #60 TAB 09/27/18 Losartan Potassium* (Losartan Potassium*) 50 Mg Tablet, 50 MG GTB DAILY for HTN, TAB 09/27/18 Folic Acid* (Folic Acid*) 1 Mg Tablet, 1 MG GTB DAILY for ANEMIA, TAB 09/27/18 Famotidine* (Famotidine*) 20 Mg Tablet, 20 MG GTB BID for GERD, #60 TAB 09/27/18 Docusate Sodium* (Docusate Sodium* Liq) 50 Mg/5 Ml Liquid, 50 MG GTB DAILY, ML 09/27/18 Acetaminophen* (Acetaminophen* Susp) 160 Mg/5 Ml Oral.susp, 160 MG GTB Q4H PRN for PAIN OR TEMP ABOVE 38C, ML 09/27/18 Primary Care Provider MD JUAN ANTONIO Ackerman LOREN Y Oct 08, 2018 15:05
--- NOTE | 2018-10-08 15:35 | CONS ---
Assessment/Plan Assessment/Plan Hospital Course (Demo Recall) - s/p severe sepsis due to bacteremia and UTI, improved - s/p persistent bacteremia due to enterobacter 09/26 and 09/27, latest blood cultures on 09/29/2018 are negative - s/p UTI due to enterbacter. Rojas catheter was changed at [facility] - BPH, has an indwelling Rojas at [facility], improved - chronic encephalopathy, talks non-sense only - h/o dysphagia, improved - h/o GT placement but Pt takes pureed diet - h/o fracture of L hip h/o ORIF - h/o surgeries of LLE and L shoulder - intertrigo of groin area - cough, possible aspiration. CXR on 10/01/2018 showed atelectasis vs minimal infiltrate at the periphery of JUSTINO Recommendations - continue IV levofloxacin, suggested end date: 10/13/2018. Pt previously took cefepime (09/26/2018-10/04/2018) - please check weekly CBC and BMP while Pt's on IV antibiotic at [facility] - follow-up video swallow Consultation Date/Type/Reason Admit Date/Time Sep 27, 2018 at 01:07 Initial Consult Date 09/27/18 Requesting Provider: CORBIN GAYTAN Date/Time of Note DATE: 10/08/18 TIME: 15:35 Exam/Review of Systems Exam Vitals Vital Signs Date Temp Pulse Resp B/P (MAP) Pulse Ox O2 O2 Flow FiO2 Time Delivery Rate 10/08/18 98.0 91 18 110/75 95 Room Air 14:00 (87) 10/07/18 21 20:06 Intake and Output 10/07/18 10/07/18 10/08/18 1515:00 23:00 07:00 IntakeIntake Total 500 ml 2300 ml 770 ml OutputOutput Total 1400 ml 1600 ml 1600 ml BalanceBalance -900 ml 700 ml -830 ml Results Result Diagram: 10/07/18 0422 10/07/18 0422 Medications Medication Current Medications Enoxaparin Sodium (Lovenox) 30 mg DAILY SC Last administered on 10/08/18at 08:08; Admin Dose 30 MG; Start 09/27/18 at 09:00 Ondansetron HCl (Zofran Inj) 4 mg Q6H PRN IV NAUSEA AND/OR VOMITING; Start 09/27/18 at 03:00 Acetaminophen (Tylenol Tab) 650 mg Q4H PRN PO MILD PAIN(1-3)OR ELEVATED TEMP Last administered on 09/28/18 08:03; Admin Dose 650 MG; Start 09/28/18 at 05:00 Albuterol/ Ipratropium (Duoneb) 3 ml Q6HWA RESP THERAPY HHN Last administered on 10/07/18 20:06; Admin Dose 3 ML; Start 09/30/18 at 20:00 Losartan Potassium (Cozaar) 12.5 mg DAILY PO Last administered on 10/08/18 08:08; Admin Dose 12.5 MG; Start 10/03/18 at 09:00 Clonazepam (Klonopin) 1 mg TID PO Last administered on 10/08/18 14:45; Admin Dose 1 MG; Start 10/02/18 at 22:00 Docusate Sodium (Colace Liquid Cup) 50 mg DAILY PO Last administered on 10/08/18 08:08; Admin Dose 50 MG; Start 10/03/18 at 09:00 Famotidine (Pepcid) 20 mg BID PO Last administered on 10/08/18 08:08; Admin Dose 20 MG; Start 10/02/18 at 22:00 Folic Acid (Folic Acid) 1 mg DAILY PO Last administered on 10/08/18 08:08; Admin Dose 1 MG; Start 10/03/18 at 09:00 Metoprolol Tartrate (Lopressor) 50 mg BID PO Last administered on 10/08/18 08:09; Admin Dose 50 MG; Start 10/02/18 at 22:00 Multivitamins/ Minerals (Theragran-M) 1 tab DAILY PO Last administered on 10/08/18 08:08; Admin Dose 1 TAB; Start 10/03/18 at 09:00 Quetiapine Fumarate (Seroquel) 25 mg BID PO Last administered on 10/08/18 08:10; Admin Dose 25 MG; Start 10/02/18 at 22:00 Senna (Senokot) 1 tab QHS PO Last administered on 10/07/18 20:18; Admin Dose 1 TAB; Start 10/03/18 at 21:00 Levofloxacin/ Dextrose 150 ml @ 100 mls/hr Q24H IVPB Last administered on 10/07/18at 20:16; Admin Dose 100 MLS/HR; Start 10/04/18 at 19:30; Stop 10/13/18 at 19:29 MALISSA QUIROZ MD Oct 08, 2018 15:35
== END 2018-10-08 19:05 | DRG 871 ==
LOC: E/R 23:31 → TEL 09-27 01:07 → MS1 09-29 23:31 → 5EC 09-30 21:51 → MS3 10-08 10:27
PROVIDERS: ADMIT Internal Medicine; ATTEND Internal Medicine
DX: A41.50 Gram-negative sepsis, unspecified (principal); N17.0 Acute kidney failure with tubular necrosis; N39.0 Urinary tract infection, site not specified; E87.1 Hypo-osmolality and hyponatremia; N13.8 Other obstructive and reflux uropathy; G93.49 Other encephalopathy; E46 Unspecified protein-calorie malnutrition; K21.9 Gastro-esophageal reflux disease without esophagitis; E86.0 Dehydration; E78.5 Hyperlipidemia, unspecified; F20.9 Schizophrenia, unspecified; D64.9 Anemia, unspecified; N40.1 Benign prostatic hyperplasia with lower urinary tract symptoms; Z68.21 Body mass index [BMI] 21.0-21.9, adult; R65.20 Severe sepsis without septic shock; R13.10 Dysphagia, unspecified; L30.4 Erythema intertrigo; Z93.1 Gastrostomy status
CPT/HCPCS: 36415; 71045; 74230; 80048; 80053; 81001; 81003; 83036; 83605; 83735; 83930; 83935; 84300; 84484; 84560; 85025; 85610; 85730; 86703; 87081; 87086; 87275; 87276; 87279; 87280; 92610; 92611; 93005; 94640; 94664; 96374; 96375; 97116; 97162; 97530; J0692; J1650; J1956; J2543; J3370; J7030